=== PATIENT | female | born 1940 | race Caucasian/White ===

== ENCOUNTER 2020-08-02 10:35 | Outpatient (REF) | payer MEDICARE, SELFPAY ==
--- NOTE | 2020-08-02 11:07 | XR_ITS ---
EXAMINATION: XR CHEST CLINICAL INFORMATION: Hypertension, left pleural effusion. COMPARISON: Chest radiographs 02/25/2018, 11/09/2017, 10/22/2017, CT chest noncontrast 11/04/2017 TECHNIQUE: 2 views of the chest were obtained. FINDINGS: There is moderate left pleural effusion with fluid tracking also in the oblique fissure. Similar findings noted in 2018. There is no mediastinal shift. The right lung is clear. The vascularity is normal. There is no airspace consolidation or groundglass opacity. The heart is within normal size. The hilar and mediastinal contours and bony structures are stable. XR/XR chest 2V IMPRESSION: 1. Moderate left effusion with fluid also tracking and left oblique fissure. Similar findings in 2018. 2. Lungs otherwise clear. Vascularity normal.
[2020-08-02 11:43] LABS: MANUAL DIFF FLAG NO
[2020-08-02 11:59] LABS: Basophils Absolute Auto 0.1 X10*3/uL (0.0-0.2); Basophils Percent Auto 0.6 % (0-2); Eosinophils Absolute Auto 0.1 X10*3/uL (0.0-0.4); Eosinophils Percent Auto 0.5 % (0-4); Hemoglobin 10.8 g/dl (12.0-16.0); Imm Gran Abs Auto 0.04 X10*3/uL (0.00-0.03); Imm Gran Pct Auto 0.4 % (0.0-0.4); Mean Corpuscular Hemoglobin 22.7 pg (27.0-33.0); Mean Corpuscular Volume 75.6 fL (80-98); Mean Platelet Volume 10.9 fL (9.4-12.3); Monocytes Absolute Auto 0.5 X10*3/uL (0.1-1.2); Monocytes Percent Auto 4.8 % (2-11); Neutrophils Absolute Auto 8.3 X10*3/uL (2.0-8.3); Neutrophils Percent Auto 75.7 % (45-73); Platelet Count 291 X10*3/uL (160-400); Red Blood Count 4.76 X10*6/uL (4.20-5.50); Red Cell Distribution Width 21.4 % (11.0-16.0)
[2020-08-02 12:21] LABS: Alanine Aminotransferase 19 U/L (0-31); Albumin Level 3.5 g/dL (3.5-5.0); Alkaline Phosphatase 127 U/L (39-117); Anion Gap 14 (12-20); Aspartate Amino Transferase 26 U/L (5-31); Bilirubin Total 0.6 mg/dL (0.0-1.0); Blood Urea Nitrogen 13 mg/dL (9-16); Calcium 8.7 mg/dL (8.4-10.2); Carbon Dioxide 26 mmol/L (22-29); Chloride 104 mmol/L (96-108); Estimated Glomerular Filt Rate > 60; Glucose Random 71 mg/dL (60-115); Potassium 4.1 mmol/l (3.3-5.1); Sodium 140 mmol/L (135-145); Total Protein 6.1 g/dL (6.5-8.0)
[2020-08-02 12:44] LABS: Thyroid Stimulating Hormone 1.76 uIU/mL (0.32-4.0)
== END 2020-08-02 10:36 | disposition home or self-care (01) ==
LOC: HO.LAB 10:35
PROVIDERS: PCP Internal Medicine; Visit Provider Internal Medicine
DX: R60.9 Edema, unspecified (principal); I10 Essential (primary) hypertension; M06.9 Rheumatoid arthritis, unspecified
CPT/HCPCS: 36415; 71046; 80053; 84443; 85025

== ENCOUNTER 2020-11-13 08:56 | Emergency (ER) | payer MEDICARE, SELFPAY ==
--- NOTE | ~2020-11-13 | XR_ITS ---
EXAMINATION: XR HIP, RIGHT CLINICAL INFORMATION: Fall, right hip injury. COMPARISON: None TECHNIQUE: Two views of the right hip. FINDINGS: AP pelvis reveals normal symmetry of both hip joints. SI joints are symmetrical as well. There is no pelvic bone fracture. AP and frog-leg views right hip reveals no visible acute fracture, dislocation or subluxation. No bony erosive changes seen. The soft tissues are normal. The right SI joint is normal. XR/XR hip RT w PEL1V IMPRESSION: Unremarkable right hip exam.
[2020-11-13 09:03] VITALS: BP 150/66; BP 174/82; PULSE 105; PULSE 110; RESP 18; TEMP 36.9; O2SAT 98; O2SAT 99; BMI 23.3
--- NOTE | 2020-11-13 09:03 | ED.LOWEXIN ---
HPI - Extremity Injury (Lower) General Chief Complaint: Fall Stated Complaint: MECHANICAL FALL,NO C/O INJURY OR PAIN Time Seen by Provider: 11/13/20 09:02 Source: patient Mode of arrival: EMS Limitations: no limitations History of Present Illness HPI Narrative: patient was rushing to the telephone, tripped and fell. Patient could not get up as her legs were weak, she was not using her walker complaint: hip injury Onset (ago): minute(s) Type of Injury: unknown Place: home Severity: moderate Exacerbating factors: movement Context: fall Related Data Previous Rx's Medication Instructions Recorded cephalexin 500 mg PO QID #20 cap 11/13/20 Allergies Allergy/AdvReac Type Severity Reaction Status Date / Time crab AdvReac Intermediate NAUSEA & Unverified 05/17/20 16:12 VOMITING crab Allergy Unknown vomiting Uncoded 01/07/18 00:00 Review of Systems Constitutional: Constitutional: Reports no additional constitutional complaints Eyes: Eyes: Reports no additional eye complaints ENT: Denies dizziness Cardiovascular: Cardiovascular: Reports no additional cardiovascular complaints Respiratory: Respiratory: Reports as per HPI Gastrointestinal: Gastrointestinal: Reports no additional gastrointestinal complaints Genitourinary: Genitourinary: Reports no additional female genitourinary complaints Musculoskeletal: Musculoskeletal: Reports no additional musculoskeletal complaints Integumentary/Breasts: Skin/Breast: Denies rash Neurologic: Reports system reviewed and no additional complaints, except as documented, Denies dizziness and Denies Sensory deficit (Neuro) Psychiatric: Psychiatric: Denies anxiety [facility] Social History Social History Advance Directives: Yes Advance Directives Information Provided: Yes Advance Directives on File: No Physical Exam Vital Signs: Vital Signs: Last Vital Signs Temp 98.2 F 11/13/20 10:00 Pulse 102 H 11/13/20 10:00 Resp 18 11/13/20 10:00 BP 150/66 H 11/13/20 09:03 Pulse Ox 98 11/13/20 10:00 Body Mass Index 23.3 Const: Other: elderly female in no distress General: healthy appearing Nutritional Appearance: average body habitus Orientation/consciousness: oriented to person and patient oriented x3 Limitations: no limitations HENMT: Head: Yes normal to inspection Ears: external ears normal General nose exam: Normal external nose present Mouth: Normal oral and palatal mucosa present and oropharynx normal Throat: Yes posterior oropharynx normal Eyes: General: appearance normal, both eyes and all related structures Neck: Other: supple Neck: Yes normal visual inspection Chest: Chest palpation & inspection: normal inspection of the chest Resp: Auscultation: clear to auscultation bilaterally Cardio: Jugular venous distension: no JVD Rate: regular rate Rhythm: regular rhythm Heart sounds: S1 normal heart sound present and S2 normal heart sound present GI: Inspection: Yes normal to inspection Palpation (GI): Soft to palpation, nontender and No hepatosplenomegaly present Auscultation: normal bowel sounds : General: Yes no CVA tenderness Back/Spine/Pelvis: Back: no CVA tenderness Skin: General skin exam: no rashes or lesions noted Neuro: General: oriented to person and patient oriented x3 Cranial nerves: Yes CN's II-XII intact bilaterally Motor exam (neuro): 5/5 motor strength present throughout Sensory Exam: No Sensory deficit (Neuro) Extrem: General: Yes normal to inspection Psych: Appearance: grossly normal MDM - Extremity Injury (Lower) MDM Narrative Medical decision making narrative: Patient ambulated well, no evidence of hip fracture will start Keflex for UTI Lab Data Labs: Lab Results 11/13/20 Range/Units Unknown Urine Color JOSHUA Urine Appearance CLOUDY Urine pH 5.5 (5.0-8.0) Ur Specific Hibbs >= 1.030 H (1.005-1.025) Urine Protein 2+ H (NEG-TRACE) MG/DL Urine Glucose (UA) NEG (NEG) MG/DL Urine Ketones 5 (NEG) MG/DL Urine Blood 3+ H (NEG) Urine Nitrite POS H (NEG) Ur Leukocyte Esterase 2+ H (NEG) Urine RBC 15-29 H (0) /HPF Urine WBC TNTC H (0-4) /HPF Ur Squamous Epith Cells 2+ /LPF Urine Bacteria 2+ /LPF Urine Yeast 2+ /HPF Imaging Data hip and pelvis: Radiologist's impression: no fracture Discharge Plan Discharge Clinical Impression: Urinary tract infection Qualifiers: Urinary tract infection type: acute cystitis Hematuria presence: without hematuria Qualified Code(s): N30.00 - Acute cystitis without hematuria Patient Disposition: Home, Self-Care Instructions: Urinary Tract Infection in Older Adults (ED) Prescriptions: New cephalexin 500 mg capsule 500 mg PO QID Qty: 20 RF: 0 Referrals: Florencio Aguilar MD [Primary Care Provider] - 2 days
[2020-11-13 10:00] VITALS: PULSE 102; RESP 18; TEMP 36.8; O2SAT 98
[2020-11-13 11:00] LABS: Glucose Urine UA NEG (NEG); Leukocyte Esterase Urine 2+ (NEG); Nitrite Urine POS (NEG); PH 5.5 (5.0-8.0); Specific Gravity - Urine >= 1.030 (1.005-1.025); UACC Culture Trigger YES; Urine Blood 3+ (NEG); Urine Ketones 5 MG/DL (NEG); Urine Protein 2+ MG/DL (NEG-TRACE)
[2020-11-13 11:01] LABS: Appearance Urine CLOUDY; Color Urine AMBER
[2020-11-13 11:13] LABS: Bacteria Urine 2+ /LPF; Squamous Epithelial Cell Urine 2+ /LPF; WBC Urine TNTC /HPF (0-4)
--- NOTE | 2020-11-13 11:31 | PC.NURSE ---
Pt amb well with walker, no assist needed
[2020-11-13] MEDS: cephALEXin 500 MG CAPSULE PO (12:07)
== END 2020-11-13 12:56 | disposition home or self-care (01) ==
PROVIDERS: Emergency Provider Emergency Medicine; PCP Internal Medicine
DX: N30.00 Acute cystitis without hematuria (principal); M25.551 Pain in right hip
CPT/HCPCS: 73502; 81001; 81003; 87086; 87088; 87186; 99283; 99284

== ENCOUNTER 2020-11-16 20:56 | Inpatient (IN) | payer MEDICARE, SELFPAY ==
--- NOTE | ~2020-11-16 | US_ITS ---
EXAMINATION: US ABDOMEN LIMITED CLINICAL INFORMATION: Elevated LFTs and fever. COMPARISON: None TECHNIQUE: Real-time imaging of the right upper quadrant abdominal viscera. Examination limited secondary to overlying bowel gas. FINDINGS: PANCREAS: The pancreas is partially obscured by overlying bowel gas. Visualized portions of the pancreas are unremarkable. LIVER: The liver is normal in size. The liver contour is normal. Parenchymal echogenicity is normal. No focal hepatic lesion. Minimal intrahepatic biliary ductal dilatation, nonspecific. GALLBLADDER: The gallbladder is poorly visualized, felt to be due to shadowing from numerous gallstones. COMMON BILE DUCT: Normal in caliber measuring 0.6 cm in diameter. RIGHT KIDNEY: Normal. No hydronephrosis. No renal calculi or focal parenchymal lesions. The kidney measures 11 cm in maximum dimension. FREE FLUID: None. US/US abdomen limited IMPRESSION: Suspected cholelithiasis. Minimal intrahepatic biliary ductal dilatation is also noted. Further evaluation can be obtained with MRI/MRCP if clinically indicated.
--- NOTE | ~2020-11-16 | XR_ITS ---
EXAMINATION: XR CHEST CLINICAL INFORMATION: Hypoxia COMPARISON: Previous chest x-ray most recent 11/26/2020 TECHNIQUE: Frontal view of the chest was obtained. FINDINGS: There is an endotracheal tube with tip 3.4 cm above the karsten. There is a nasogastric tube. The side port projects over the GE junction and the visualized distal tube projects over the proximal stomach. The tip is not seen. There is a left jugular line with tip projecting over the proximal SVC. The cardiac and mediastinal contours are stable. There is dense bilateral airspace disease. This is not appear appreciably changed from 11/26/2020. There is a stable small to moderate left pleural effusion. There is no right pleural effusion. There is no pneumothorax. There is vertebroplasty change of the proximal lumbar spine. XR/XR chest 1V IMPRESSION: No change in dense bilateral airspace disease and left pleural effusion. Nasogastric tube projects over stomach, tip not seen.
--- NOTE | ~2020-11-16 | XR_ITS ---
EXAMINATION: XR CHEST CLINICAL INFORMATION: Central line placement COMPARISON: Previous chest x-rays most recent from yesterday TECHNIQUE: Frontal view of the chest was obtained. FINDINGS: There is an endotracheal tube with tip 6 cm above the karsten. There is a new left jugular line with tip projecting over the proximal SVC. The cardiac and mediastinal contours are stable. There is dense bilateral airspace disease. This appears increased from yesterday's exam. There is a small left pleural effusion. There is no significant right pleural effusion. There is no pneumothorax. XR/XR chest 1V IMPRESSION: Satisfactory position of support line and tubes. Dense bilateral airspace disease increased from yesterday's exam. Small stable left pleural effusion. No pneumothorax.
--- NOTE | ~2020-11-16 | XR_ITS ---
EXAMINATION: XR CHEST CLINICAL INFORMATION: Check orogastric tube placement COMPARISON: Previous chest x-ray and chest CTA from earlier today TECHNIQUE: Frontal view of the chest was obtained. FINDINGS: Endotracheal tube tip is 2.5 cm above the karsten. There is a new orogastric tube. The distal tube projects over the stomach. The tip is not seen. The sidehole is at the level of the GE junction. There is a left jugular line with tip projecting over the SVC. The cardiac and mediastinal contours are stable. There is bilateral airspace disease that appears unchanged. There is a left pleural effusion that is unchanged. There is no right pleural effusion. There is no pneumothorax. Old compression fracture and vertebroplasty change of the L1 vertebral body is noted. XR/XR chest 1V IMPRESSION: New orogastric tube projects over stomach. The tip is not seen. Sidehole projects over the GE junction region. Satisfactory position of endotracheal tube and left jugular line. No change in bilateral airspace disease and left pleural effusion.
--- NOTE | ~2020-11-16 | XR_ITS ---
EXAMINATION: XR CHEST CLINICAL INFORMATION: Hypoxia COMPARISON: Previous chest x-ray July [address] most recent October 2017 TECHNIQUE: Frontal view of the chest was obtained. FINDINGS: There is a large left pleural effusion that appears unchanged. There may be compressive atelectasis of the left lower lobe. This is unchanged as well. There is diffuse airspace disease and question bronchial wall thickening seen in the right central lung. This is greatest in the right upper lobe. This probably represents pneumonia. There is no right pleural effusion. The left heart border partially obscured. The heart does not appear enlarged. Visualized hilar and mediastinal contours are unremarkable. There are degenerative changes of the spine. XR/XR chest 1V IMPRESSION: Large left pleural effusion and probable compressive atelectasis at the left lung base similar to previous exams. New central airspace disease in the right lung, greatest in the right upper lobe, and bronchial wall thickening. This probably represents pneumonia.
--- NOTE | ~2020-11-16 | XR_ITS ---
EXAMINATION: XR CHEST CLINICAL INFORMATION: Shortness of breath COMPARISON: Previous chest x-rays most recent from yesterday TECHNIQUE: Frontal view of the chest was obtained. FINDINGS: The cardiac and mediastinal contours are stable. There is increasing right-sided airspace disease. There is increasing left perihilar airspace disease as well. This probably represents pneumonia. Differential would include pulmonary edema and in the right clinical setting pulmonary hemorrhage. There is blunting at the left lateral costophrenic angle triangular lucency at the left lung base seen medially suggestive of a loculated left pleural effusion. This appears unchanged. There is no right pleural effusion. There is a postoperative kyphoplasty change to the upper lumbar spine. XR/XR chest 1V IMPRESSION: Worsening bilateral airspace disease probably representing pneumonia. Differential in the right clinical setting would include pulmonary edema and pneumonia. Stable probably loculated left pleural effusion.
--- NOTE | ~2020-11-16 | CT_ITS ---
EXAMINATION: CT HEAD WITHOUT CONTRAST CLINICAL INFORMATION: Fall. On Coumadin. COMPARISON: CT head 12/24/2017 TECHNIQUE: Contiguous axial imaging was performed from the skull base to vertex without intravenous administration of contrast. Coronal and sagittal reformatted images are performed at the CT scanner This CT examination was performed using dose optimization techniques as appropriate, variously including the following: *Automated exposure control *Adjustment of mA and/or kV according to patient size (this includes techniques or standardized protocols for targeted exams where dose is matched to indication/reason for exam; i.e. extremities or head) *Use of iterative reconstruction technique DLP: 710 mGy-cm FINDINGS: There is no evidence of acute intracranial hemorrhage or territorial infarction. No abnormal mass effect or midline shift is seen. Crisostomo to white matter differentiation is well preserved. No extra-axial fluid collections are identified. There is atrophy with prominence of the ventricles and the sulci and hypodensity of the periventricular white matter due to chronic small vessel ischemic disease. There are vascular calcifications of the internal carotid arteries bilaterally. The osseous structures and soft tissues are normal. The mastoid air cells and visualized portions of the paranasal sinuses are well aerated. CT/CT head/brain wo con IMPRESSION: No acute intracranial pathology.
--- NOTE | ~2020-11-16 | CT_ITS ---
EXAMINATION: CT CHEST WITHOUT CONTRAST CLINICAL INFORMATION: Hypoxia. COMPARISON: Chest CT dated 10/14/2017. TECHNIQUE: Multidetector volumetric CT imaging of the chest was done. Axial MIP volume rendering provided. Sagittal and coronal reformatted images were obtained. This CT examination was performed using dose optimization techniques as appropriate, variously including the following: *Automated exposure control *Adjustment of mA and/or kV according to patient size (this includes techniques or standardized protocols for targeted exams where dose is matched to indication/reason for exam; i.e. extremities or head) *Use of iterative reconstruction technique DLP: 198 mGy-cm FINDINGS: Lungs and pleural spaces: Diffuse groundglass opacification are noted throughout the right upper lobe, right upper lobe, and right lower lobe. Diffuse groundglass opacities are noted throughout the left upper lobe. Large loculated left pleural effusion. There is near complete atelectasis of the left lower lobe with small aerated component in the inferior aspect of the left lower lobe respectively. There is no discrete pulmonary nodule or mass. The central tracheobronchial tree is patent. No pneumothorax. Thoracic lymph nodes: There is no hilar, mediastinal or axillary lymphadenopathy. Cardiovascular, mediastinal structures and thyroid: The heart is normal in size. Coronary vascular calcifications noted. There is no pericardial effusion. The thoracic aorta is normal in diameter without evidence of aneurysm. The main pulmonary artery is normal in caliber. The visualized thyroid gland is within normal limits. The esophagus appears partially collapsed but otherwise unremarkable. Skeletal, diaphragm and chest wall: T12 vertebral augmentation. Unchanged hypoplastic ribs at the T12 level. No aggressive lytic or blastic osseous lesions. The subcutaneous tissues are unremarkable. Upper abdomen: The visualized liver, pancreas, and spleen are unremarkable. Unchanged right adrenal gland nodule, likely an adenoma. Left adrenal gland thickening. Partially visualized kidneys are normal. The proximal stomach and visualized upper abdominal bowel loops are poorly evaluated but appear unremarkable. CT/CT chest wo con IMPRESSION: Large loculated left pleural effusion. There is marked compressive atelectasis of the left lower lobe. Diffuse groundglass opacities throughout the right and left lung secondary to multifocal pneumonia. Mild coronary atherosclerotic disease. Vertebral augmentation at T12. Unchanged right adrenal gland nodule, likely an adenoma. Left adrenal gland thickening. Findings of this examination were discussed with and acknowledged by Dr. Cooper at 6:56 PM 11/23/2020.
--- NOTE | ~2020-11-16 | XR_ITS ---
EXAMINATION: XR HIP, LEFT CLINICAL INFORMATION: Postop COMPARISON: Previous pelvis and left hip x-ray 11/16/2020 TECHNIQUE: AP view of the left hip FINDINGS: There is a new left hip hemiarthroplasty in satisfactory position. No fracture or dislocation is seen. There are mild degenerative changes at the right hip joint. There are postoperative changes to the soft tissues of the left hip. XR/XR hip LT 1V IMPRESSION: New left hip hemiarthroplasty in satisfactory position.
--- NOTE | ~2020-11-16 | XR_ITS ---
EXAMINATION: CHEST 1 VIEW CLINICAL INFORMATION: Shortness of breath. COMPARISON: 11/23/2020. TECHNIQUE: An AP view of the chest is provided. FINDINGS: The cardiac silhouette is stable. Again identified is a large left pleural effusion with associated atelectasis. There is patchy opacification throughout the right lung. There are no pneumothoraces. The osseous structures are stable. XR/XR chest 1V IMPRESSION: Large left pleural effusion with associated airspace disease. Patchy airspace opacification throughout the right lung.
--- NOTE | ~2020-11-16 | CT_ITS ---
EXAMINATION: CHEST CTA CLINICAL INFORMATION: Cardiac arrest COMPARISON: Previous chest CT 11/23/2020 and chest x-rays most recent from earlier the same day TECHNIQUE: Axial images through the chest following 65 mL Omnipaque 350 intravenous contrast. Sagittal coronal and 3-D MIPS reconstructions were performed. Patient dose 1 6 4 mg/cm. This CT examination was performed using dose optimization techniques as appropriate, variously including the following: *Automated exposure control *Adjustment of mA and/or kV according to patient size (this includes techniques or standardized protocols for targeted exams where dose is matched to indication/reason for exam; i.e. extremities or head) *Use of iterative reconstruction technique FINDINGS: There is good opacification of the pulmonary arteries. There is no evidence of pulmonary embolism. There is evidence of increasing bilateral groundglass attenuation and denser consolidation seen throughout the lungs. This is greatest in the right upper lobe.. There is chronic atelectasis of the left lower lobe probably representing compressive atelectasis from the left pleural effusion. No endobronchial or endotracheal lesion is seen. There is an endotracheal tube with tip 2.5 cm above the karsten. There is a moderate loculated left pleural effusion that appears unchanged. There is a trace right pleural effusion. There is no pneumothorax. There is a new left jugular line with tip projecting over the proximal SVC. There is an endotracheal tube with tip 2.5 cm above the karsten. The heart does not appear enlarged. The thoracic aorta is normal in caliber. There is evidence of calcified and noncalcified plaque seen in the thoracic aorta. There are no enlarged hilar or mediastinal lymph nodes. No chest wall mass or enlarged axillary lymph nodes are seen. Images through the upper abdomen are unremarkable. There are are degenerative changes of the spine. There is an old L1 vertebral body compression fracture and post vertebroplasty change. No acute rib or sternal fracture is seen. CT/CT angio chest PE protocol IMPRESSION: No evidence of pulmonary embolism. Increasing bilateral airspace disease, greatest in the right upper lobe. Stable loculated moderate size left pleural effusion. Trace right pleural effusion. Satisfactory position of support line and endotracheal tube. No pneumothorax. Atherosclerotic disease with calcified and noncalcified plaque in the thoracic aorta. EXAMINATION: Head CT without contrast CLINICAL INFORMATION: Cardiac arrest COMPARISON: Previous head CT October 2017 TECHNIQUE: Axial images through the head without contrast. Sagittal and coronal reconstructions on the technologist workstation were performed. Patient dose 8 3 2 mg/cm FINDINGS: There is no evidence of an extra-axial collection. There is no evidence of intra-axial or extra-axial hemorrhage. The ventricles and extra-axial CSF spaces are prominent suggestive of generalized atrophy. There is nonspecific periventricular white matter disease. No mass, mass effect or acute infarct is seen. Review of bone windows demonstrates no skull fracture or bone lesion. Visualized paranasal sinuses, mastoid air cells and middle ears are clear. IMPRESSION: No acute findings. Generalized atrophy and nonspecific periventricular white matter disease.
--- NOTE | ~2020-11-16 | XR_ITS ---
EXAMINATION: XR HIP, LEFT CLINICAL INFORMATION: s/p fall l hip pain COMPARISON: 11/13/2020 TECHNIQUE: AP and cross-table lateral views of the left hip and an AP view of the pelvis. FINDINGS: There is a transcervical fracture of the left proximal femur with cephalad displacement of the distal fragment by 2 cm as well as mild varus attenuation. This fracture appears new as compared to prior. No additional fractures are identified. Bones are osteopenic. There is mild osteophytes in the hips and SI joints. Calcific and sclerosis is evident within the central pelvis. XR/XR hip LT w PEL1V IMPRESSION: Displaced transcervical fracture of the left proximal femur.
[2020-11-16 21:07] VITALS: BP 150/78; BP 164/64; PULSE 82; PULSE 86; RESP 17; TEMP 36.3; O2SAT 93; O2SAT 94; BMI 23.3
--- NOTE | 2020-11-16 21:11 | PC.NURSE ---
patient alert to person/place, she was unable to give date/time/year- initially stated it was november, pt had c/o 8/10 lt hip pain, + csm/pulses to lle, per ems patient lives home alone and her home is very well kept/clean. pt states her son lives in [place] but visits often and has others who stop over often as well. pt is a poor historian for medical history, vitals currently stable, will continue to monitor.
--- NOTE | 2020-11-16 22:21 | ECG_ITS ---
Test Reason : FALL Blood Pressure : / mmHG Vent. Rate : 084 BPM Atrial Rate : 084 BPM P-R Int : 156 ms QRS Dur : 090 ms QT Int : 374 ms P-R-T Axes : 031 030 038 degrees QTc Int : 441 ms Normal sinus rhythm Possible Left atrial enlargement Nonspecific ST and T wave abnormality Abnormal ECG When compared with ECG of 24-DEC-2017 12:02, Nonspecific T wave abnormality no longer evident in Inferior leads Referred By: Adilson De Jesus Electronically Signed By:BRANDO PANTOJA MD
[2020-11-16] MEDS: Morphine Sulfate 2 MG/ML CARTRIDGE IVPUSH (22:38)
[2020-11-16] MEDS: ondansetron HCL 4 MG/2 ML VIAL IVPUSH (22:38)
[2020-11-16 22:39] LABS: MANUAL DIFF FLAG NO
[2020-11-16 22:42] LABS: Basophils Absolute Auto 0.1 X10*3/uL (0.0-0.2); Basophils Percent Auto 0.5 % (0-2); Eosinophils Percent Auto 0.2 % (0-4); Hematocrit 32.9 % (37-47); Hemoglobin 10.3 g/dl (12.0-16.0); Imm Gran Pct Auto 1.5 % (0.0-0.4); Lymphocytes Absolute Auto 1.9 X10*3/uL (1.2-4.9); Lymphocytes Percent Auto 14.6 % (20-40); Mean Corpuscular HGB Conc 31.3 g/dl (31.0-35.0); Mean Corpuscular Hemoglobin 22.1 pg (27.0-33.0); Mean Corpuscular Volume 70.4 fL (80-98); Mean Platelet Volume 10.1 fL (9.4-12.3); Monocytes Absolute Auto 1.2 X10*3/uL (0.1-1.2); Monocytes Percent Auto 9.5 % (2-11); Neutrophils Absolute Auto 9.7 X10*3/uL (2.0-8.3); Neutrophils Percent Auto 73.7 % (45-73); Platelet Count 368 X10*3/uL (160-400); Red Blood Count 4.67 X10*6/uL (4.20-5.50); Red Cell Distribution Width 21.9 % (11.0-16.0); White Blood Count 13.1 X10*3/uL (4.8-10.8)
--- NOTE | 2020-11-16 22:43 | PC.NURSE ---
iv inserted, labs drawn, ekg performed, pt medicated per order, will continue to monitor.
[2020-11-16 22:48] LABS: INTERNATIONAL NORM RATIO 1.9 (0.9-1.1); Prothrombin Time 22.9 SEC (10.8-13.0)
[2020-11-16 22:51] LABS: Partial Thromboplastin Time 33.7 SEC (24.1-38.0)
[2020-11-16 23:13] LABS: Alanine Aminotransferase 17 U/L (0-31); Albumin Level 3.3 g/dL (3.5-5.0); Alkaline Phosphatase 169 U/L (39-117); Anion Gap 17 (12-20); Aspartate Amino Transferase 32 U/L (5-31); Bilirubin Direct 0.2 mg/dL (0.0-0.5); Bilirubin Total 0.5 mg/dL (0.0-1.0); Blood Urea Nitrogen 10 mg/dL (9-16); Calcium 8.3 mg/dL (8.4-10.2); Carbon Dioxide 19 mmol/L (22-29); Chloride 105 mmol/L (96-108); Creatinine Clr Calc Pharmacy 49.8; Estimated Glomerular Filt Rate > 60; Glucose Random 100 mg/dL (60-115); Potassium 3.4 mmol/L (3.3-5.1); Sodium 138 mmol/L (135-145); Total Protein 6.2 g/dL (6.5-8.0)
[2020-11-16 23:14] LABS: Troponin-I High Sensitivity 9.7 ng/L (<3.5-17.0)
[2020-11-16 23:23] LABS: COVID-19 Test Negative (Negative)
--- NOTE | 2020-11-16 23:36 | ED.FALL ---
HPI - Fall General Chief Complaint: Fall Stated Complaint: Fall Time Seen by Provider: 11/16/20 22:20 Source: patient Mode of arrival: ambulatory Limitations: no limitations History of Present Illness HPI Narrative: Patient with frequent falls supposed to walk with walker patient was walking without walker with Min room to room lost balance and fell landing on her left hip patient denied any head injury comes with pain in the left hip MD complaint: fall Fall from: standing Fall witnessed: no Place fall occurred: home Loss of consciousness: none Related Data Home Medications Medication Instructions Recorded Confirmed apixaban [Eliquis] 1 tab PO BID 11/16/20 11/16/20 folic acid 1 tab PO DAILY 11/16/20 11/16/20 furosemide 1 tab PO DAILY 11/16/20 11/16/20 hydroxychloroquine 1 tab PO BID 11/16/20 11/16/20 ibrutinib [Imbruvica] 1 tab PO DAILY 11/16/20 11/16/20 methotrexate sodium 8 tab PO QWEEK 11/16/20 11/16/20 metoprolol tartrate 0.5 tab PO BID 11/16/20 11/16/20 pantoprazole 1 tab PO DAILY 11/16/20 11/16/20 salsalate 2 tab PO BID 11/16/20 11/16/20 Previous Rx's Medication Instructions Recorded cephalexin 500 mg PO QID #20 cap 11/13/20 Allergies Allergy/AdvReac Type Severity Reaction Status Date / Time crab AdvReac Intermediate NAUSEA & Verified 11/16/20 21:07 VOMITING crab Allergy Intermediate vomiting Uncoded 11/16/20 21:07 Review of Systems Review of Systems: Constitutional : No Weight loss, No Fever, No Chills ENT/Mouth : No sore throat, No Rhinorrhea Eyes: No Eye Pain, No Swelling Cardiovascular : No Chest Pain, no palpitations Respiratory : No Cough, No Sputum, no shortness of breath Gastrointestinal : no Nausea, No Vomiting, No Diarrhea, No abdominal Pain, no black stools Genitourinary : No Dysuria, No Urinary Frequency Musculoskeletal : No Myalgias, No Joint Swelling Skin : No Skin Lesions, No rash Neuro : No Weakness, No Numbness, No Dizziness, No Headache Psych : No Anxiety/Panic, No Depression Heme/Lymph: No Bruising, No Lymphadenopathy Endocrine : No Polyuria, No Polydipsia All other systems reviewed and are negative PMFSH Past Medical History Medical History CLL (chronic lymphocytic leukemia) Empyema lung Paroxysmal A-fib Rheumatoid arthritis Social History Social History Alcohol intake: never Smoked in Last 30 Days: No Use of substances other than those prescribed or required for medical reasons: No Advance Directives: No Advance Directives Information Provided: Yes Physical Exam Vital Signs: Vital Signs: Last Vital Signs Temp 97.4 F 11/16/20 21:07 Pulse 86 11/16/20 21:07 Resp 17 11/16/20 21:07 BP 164/64 H 11/16/20 21:07 Pulse Ox 93 11/16/20 21:07 Body Mass Index 23.3 Const: General: alert, awake and in distress Nutritional Appearance: thin Orientation/consciousness: patient oriented x3 HENMT: Head: Yes normocephalic and Yes atraumatic Ears: hearing grossly normal bilaterally Face and sinus: Yes normal facial exam Mouth: Normal oral and palatal mucosa present Eyes: General: appearance normal, both eyes and all related structures Neck: Neck: Yes normal visual inspection and No tender Chest: Chest palpation & inspection: normal inspection of the chest and normal palpation of entire chest wall Resp: Effort & Inspection: normal respiratory effort Auscultation: clear to auscultation bilaterally, no crackles and no rales Cardio: Palpation: normal PMI Rate: regular rate Rhythm: regular rhythm Heart sounds: S1 normal heart sound present and S2 normal heart sound present Peripheral pulses: Peripheral pulses 2+ throughout GI: Inspection: Yes normal to inspection Palpation (GI): Soft to palpation and nontender Auscultation: normal bowel sounds : General: Yes no CVA tenderness Back/Spine/Pelvis: Back: no CVA tenderness Thoracic/Lumbar Spine: thoracic and lumbar spine normal to inspection Skin: General skin exam: no rashes or lesions noted Neuro: General: patient oriented x3 and no focal motor deficits Extrem: Left lower extremity: no edema Upper/lower leg/hip images: 1. Tender left hip externally rotated shortened MDM - Fall MDM Narrative Medical decision making narrative: Patient with displaced scervical fracture of left femur secondary to mechanical fall on Eliquis case discussed with Dr. Cevallos advise admit to medical service to get medically cleared because patient is on Eliquis will take to surgical service once cleared Differential Diagnosis Differential diagnosis: Likely fracture Lab Data Attestation: I reviewed the patient's lab results. Result diagrams: 11/16/20 22:32 11/16/20 22:32 Labs: Lab Results 11/16/20 11/16/20 11/16/20 Range/Units 22:31 22:32 22:32 WBC 13.1 H (4.8-10.8) X10*3/uL RBC 4.67 (4.20-5.50) X10*6/uL Hgb 10.3 L (12.0-16.0) g/dl Hct 32.9 L (37-47) % MCV 70.4 L (80-98) fL MCH 22.1 L (27.0-33.0) pg MCHC 31.3 (31.0-35.0) g/dl RDW 21.9 H (11.0-16.0) % Plt Count 368 D (160-400) X10*3/uL MPV 10.1 (9.4-12.3) fL Immature Gran % (Auto) 1.5 H (0.0-0.4) % Neut % (Auto) 73.7 H (45-73) % Lymph % (Auto) 14.6 L (20-40) % [place] % (Auto) 9.5 (2-11) % Eos % (Auto) 0.2 (0-4) % Baso % (Auto) 0.5 (0-2) % Lymph # (Auto) 1.9 (1.2-4.9) X10*3/uL [place] # (Auto) 1.2 (0.1-1.2) X10*3/uL Eos # (Auto) 0.0 (0.0-0.4) X10*3/uL Baso # (Auto) 0.1 (0.0-0.2) X10*3/uL Abs Immat Gran (auto) 0.20 H (0.00-0.03) X10*3/uL Absolute Neuts (auto) 9.7 H (2.0-8.3) X10*3/uL Absolute Nucleated RBC 0.000 (0.0-0.012) X10*3/uL Nucleated RBC % (auto) 0.0 (0.0-0.2) /100WBC PT 22.9 H (10.8-13.0) SEC INR 1.9 H (0.9-1.1) APTT 33.7 (24.1-38.0) SEC Sodium (135-145) mmol/L Potassium (3.3-5.1) mmol/L Chloride (96-108) mmol/L Carbon Dioxide (22-29) mmol/L Anion Gap (12-20) BUN (9-16) mg/dL Creatinine (0.5-1.4) mg/dL Estim Creat Clear Calc Estimated GFR Random Glucose (60-115) mg/dL Calcium (8.4-10.2) mg/dL Total Bilirubin (0.0-1.0) mg/dL Direct Bilirubin (0.0-0.5) mg/dL AST (5-31) U/L ALT (0-31) U/L Alkaline Phosphatase (39-117) U/L Troponin I High Sens (<3.5-17.0) ng/L Total Protein (6.5-8.0) g/dL Albumin (3.5-5.0) g/dL COVID-19 (KAREN) (Negative) COVID-19 Clin [facility] Blood Type O Positive Antibody Screen NEGATIVE 11/16/20 11/16/20 11/16/20 Range/Units 22:32 22:32 22:34 WBC (4.8-10.8) X10*3/uL RBC (4.20-5.50) X10*6/uL Hgb (12.0-16.0) g/dl Hct (37-47) % MCV (80-98) fL MCH (27.0-33.0) pg MCHC (31.0-35.0) g/dl RDW (11.0-16.0) % Plt Count (160-400) X10*3/uL MPV (9.4-12.3) fL Immature Gran % (Auto) (0.0-0.4) % Neut % (Auto) (45-73) % Lymph % (Auto) (20-40) % [place] % (Auto) (2-11) % Eos % (Auto) (0-4) % Baso % (Auto) (0-2) % Lymph # (Auto) (1.2-4.9) X10*3/uL [place] # (Auto) (0.1-1.2) X10*3/uL Eos # (Auto) (0.0-0.4) X10*3/uL Baso # (Auto) (0.0-0.2) X10*3/uL Abs Immat Gran (auto) (0.00-0.03) X10*3/uL Absolute Neuts (auto) (2.0-8.3) X10*3/uL Absolute Nucleated RBC (0.0-0.012) X10*3/uL Nucleated RBC % (auto) (0.0-0.2) /100WBC PT (10.8-13.0) SEC INR (0.9-1.1) APTT (24.1-38.0) SEC Sodium 138 (135-145) mmol/L Potassium 3.4 (3.3-5.1) mmol/L Chloride 105 (96-108) mmol/L Carbon Dioxide 19 L (22-29) mmol/L Anion Gap 17 (12-20) BUN 10 (9-16) mg/dL Creatinine 0.70 (0.5-1.4) mg/dL Estim Creat Clear Calc 49.8 Estimated GFR > 60 Random Glucose 100 D (60-115) mg/dL Calcium 8.3 L (8.4-10.2) mg/dL Total Bilirubin 0.5 (0.0-1.0) mg/dL Direct Bilirubin 0.2 (0.0-0.5) mg/dL AST 32 H (5-31) U/L ALT 17 (0-31) U/L Alkaline Phosphatase 169 H D (39-117) U/L Troponin I High Sens 9.7 (<3.5-17.0) ng/L Total Protein 6.2 L (6.5-8.0) g/dL Albumin 3.3 L (3.5-5.0) g/dL COVID-19 (KAREN) Negative (Negative) COVID-19 Clin Com See Note Blood Type Antibody Screen ECG Data Attestation: I personally reviewed and interpreted this ECG as follows: Interpretation: Normal sinus rhythm heart rate 84 beats per minute normal intervals normal axis no acute ST T wave changes no acute ischemia Discharge Plan Discharge Prescriptions: No Action cephalexin 500 mg capsule 500 mg PO QID Qty: 20 RF: 0 salsalate 500 mg tablet 2 tab PO BID RF: 0 methotrexate sodium 2.5 mg tablet 8 tab PO QWEEK RF: 0 pantoprazole 40 mg tablet,delayed release (DR/EC) 1 tab PO DAILY RF: 0 metoprolol tartrate 50 mg tablet 0.5 tab PO BID RF: 0 folic acid 1 mg tablet 1 tab PO DAILY RF: 0 furosemide 20 mg tablet 1 tab PO DAILY RF: 0 hydroxychloroquine 200 mg tablet 1 tab PO BID RF: 0 Eliquis 5 mg tablet 1 tab PO BID RF: 0 Imbruvica 420 mg tablet 1 tab PO DAILY RF: 0
[2020-11-17] VITALS (8 sets, daily range): BP systolic 102–142; BP diastolic 44–65; PULSE 66–88; RESP 16–19; TEMP 36.4–36.7; O2SAT 95–99
[2020-11-17 00:04] LABS: Glucose Urine UA NEG (NEG); Leukocyte Esterase Urine NEG (NEG); Nitrite Urine NEG (NEG); Specific Gravity - Urine >= 1.030 (1.005-1.025); Urine Blood 3+ (NEG); Urine Ketones NEG (NEG); Urine Protein 1+ MG/DL (NEG-TRACE)
[2020-11-17 00:05] LABS: Appearance Urine HAZY; Color Urine YELLOW
[2020-11-17 00:11] LABS: Amorphous Sediment Urine 2+ /LPF; Hyaline Casts Urine 0-2 /LPF; RBC Urine 50-75 /HPF (0); Squamous Epithelial Cell Urine TRACE /LPF; WBC Urine 0-2 /HPF (0-4)
[2020-11-17] MEDS: Morphine Sulfate 2 MG/ML CARTRIDGE IVPUSH (00:31)
--- NOTE | 2020-11-17 00:45 | P.HPHOSP_ITS ---
History of Present Illness Date of Service: 11/17/20 Chief Complaint: Fall 79-year-old female with a past medical history of CLL, COPD, paroxysmal AFib on Eliquis, rheumatoid arthritis presented to the hospital with a chief complaint of fall. Patient reports that she was in the hospital about 3 days ago and was diagnosed with UTI and was discharged home on cephalexin. Mentions that she uses walker at home today she was walking and suddenly he slipped and fell on a. Denies any head strike or loss of consciousness. Denies any fever chills cough. Denies any chest pain lightheadedness or dizziness. Review of all other systems is negative except mentioned above ER course: For ER team patient CT head showed no acute findings exam nonfocal but noted of pain in the hip; hip x-ray showed transcervical fracture of the left proximal femur with cephalad displacement of the distal fragment by 2 centimetres as well as mild varus attenuation; ER team discussed with Dr. Cevallos who mentioned admitted to the medicine team. [facility] Medical History (Updated 11/26/20 @ 11:03 by Ruy Cruz MD) CLL (chronic lymphocytic leukemia) Empyema lung Paroxysmal A-fib Rheumatoid arthritis Social History Household Members: None Housing: House Alcohol intake: never Smoking Status: Never smoker service: No Current occupational status: retired Meds Allergies Allergy/AdvReac Type Severity Reaction Status Date / Time crab AdvReac Intermediate NAUSEA & Verified 11/16/20 21:07 VOMITING crab Allergy Intermediate vomiting Uncoded 11/16/20 21:07 Active Medications: Current Medications Generic Name Dose Route Start Last Admin Trade Name Freq PRN Reason Stop Dose Admin Acetaminophen 650 mg 11/17/20 00:42 Acetaminophen 325 Mg Tablet PO Q6H PRN Pain, Mild (Pain Scale 1-3) Cephalexin HCl 500 mg 11/17/20 09:00 Cephalexin 500 Mg Capsule PO QID [facility] Folic Acid 1 mg 11/17/20 09:00 Folic Acid 1 Mg Tablet PO DAILY [facility] Furosemide 20 mg 11/17/20 09:00 Furosemide 20 Mg Tablet PO DAILY [facility] Protocol Hydroxychloroquine Sulfate 200 mg 11/17/20 09:00 Hydroxychloroquine Sulfate 200 Mg Tablet PO BID [facility] Methotrexate 20 mg 11/17/20 00:45 Methotrexate Sodium 2.5 Mg Tablet PO QWEEK [facility] Metoprolol Tartrate 25 mg 11/17/20 09:00 Metoprolol Tartrate 50 Mg Tablet PO BID [facility] Protocol Non-Formulary Medication 1 tab 11/17/20 09:00 Ibrutinib [Imbruvica] PO DAILY [facility] Non-Formulary Medication 1 tab 11/17/20 09:00 Pantoprazole PO DAILY [facility] Non-Formulary Medication 2 tab 11/17/20 09:00 Salsalate PO BID [facility] Sodium Chloride 3 ml 11/17/20 08:00 0.9 % Sodium Chloride Flush 3 Ml Syringe IVFLUSH QSHIFT [facility] Home Medications Medication Instructions Recorded Confirmed Last Taken Type apixaban [Eliquis] 1 tab PO BID 11/16/20 11/16/20 Unknown History folic acid 1 tab PO DAILY 11/16/20 11/16/20 Unknown History furosemide 1 tab PO DAILY 11/16/20 11/16/20 Unknown History hydroxychloroquine 1 tab PO BID 11/16/20 11/16/20 Unknown History ibrutinib [Imbruvica] 1 tab PO DAILY 11/16/20 11/16/20 Unknown History methotrexate sodium 8 tab PO QWEEK 11/16/20 11/16/20 Unknown History metoprolol tartrate 0.5 tab PO BID 11/16/20 11/16/20 Unknown History pantoprazole 1 tab PO DAILY 11/16/20 11/16/20 Unknown History salsalate 2 tab PO BID 11/16/20 11/16/20 Unknown History Physical Exam Vital Signs and Narrative: Vital Signs: Last Vital Signs Temp 97.4 F 11/16/20 21:07 Pulse 87 11/17/20 00:00 Resp 16 11/17/20 00:00 BP 142/65 H 11/17/20 00:00 Pulse Ox 96 11/17/20 00:00 Body Mass Index 23.3 Gen: Appears be in no acute distress HEENT: NCAT, Moist mucosa. Pulmonary: Vesicular breath sounds, fair air entry CVS: Normal S1-S2 Abdomen: BS+, Soft, Nontender Extremities: Warm well perfused; left hip exam limited secondary to the pain Neuro: Alert and awake. Sensations intact Results Labs CBC and Chem 7: 11/26/20 06:57 11/26/20 06:57 Labs: Laboratory Results - last 24 hr 11/16/20 11/16/20 11/16/20 22:31 22:32 22:32 MCV 70.4 L MCH 22.1 L MCHC 31.3 RDW 21.9 H Plt Count 368 D MPV 10.1 Immature Gran % (Auto) 1.5 H Neut % (Auto) 73.7 H Lymph % (Auto) 14.6 L Garza % (Auto) 9.5 Eos % (Auto) 0.2 Baso % (Auto) 0.5 Lymph # (Auto) 1.9 Garza # (Auto) 1.2 Eos # (Auto) 0.0 Baso # (Auto) 0.1 Abs Immat Gran (auto) 0.20 H Absolute Neuts (auto) 9.7 H Absolute Nucleated RBC 0.000 Nucleated RBC % (auto) 0.0 PT 22.9 H INR 1.9 H APTT 33.7 Anion Gap Estim Creat Clear Calc Estimated GFR Random Glucose Calcium Total Bilirubin Direct Bilirubin AST ALT Alkaline Phosphatase Troponin I High Sens Total Protein Albumin Urine Color Urine Appearance Urine pH Ur Specific [place] Urine Protein Urine Glucose (UA) Urine Ketones Urine Blood Urine Nitrite Ur Leukocyte Esterase Urine RBC Urine WBC Ur Squamous Epith Cells Amorphous Sediment Urine Bacteria Hyaline Casts COVID-19 ([facility]RA[facility]) COVID-19 Clin Com Blood Type O Positive Antibody Screen NEGATIVE 11/16/20 11/16/20 11/16/20 22:32 22:32 22:34 MCV MCH MCHC RDW Plt Count MPV Immature Gran % (Auto) Neut % (Auto) Lymph % (Auto) Garza % (Auto) Eos % (Auto) Baso % (Auto) Lymph # (Auto) Garza # (Auto) Eos # (Auto) Baso # (Auto) Abs Immat Gran (auto) Absolute Neuts (auto) Absolute Nucleated RBC Nucleated RBC % (auto) PT INR APTT Anion Gap 17 Estim Creat Clear Calc 49.8 Estimated GFR > 60 Random Glucose 100 D Calcium 8.3 L Total Bilirubin 0.5 Direct Bilirubin 0.2 AST 32 H ALT 17 Alkaline Phosphatase 169 H D Troponin I High Sens 9.7 Total Protein 6.2 L Albumin 3.3 L Urine Color Urine Appearance Urine pH Ur Specific [place] Urine Protein Urine Glucose (UA) Urine Ketones Urine Blood Urine Nitrite Ur Leukocyte Esterase Urine RBC Urine WBC Ur Squamous Epith Cells Amorphous Sediment Urine Bacteria Hyaline Casts COVID-19 (KAREN) Negative COVID-19 Clin Com See Note Blood Type Antibody Screen 11/16/20 23:59 MCV MCH MCHC RDW Plt Count MPV Immature Gran % (Auto) Neut % (Auto) Lymph % (Auto) Garza % (Auto) Eos % (Auto) Baso % (Auto) Lymph # (Auto) Garza # (Auto) Eos # (Auto) Baso # (Auto) Abs Immat Gran (auto) Absolute Neuts (auto) Absolute Nucleated RBC Nucleated RBC % (auto) PT INR APTT Anion Gap Estim Creat Clear Calc Estimated GFR Random Glucose Calcium Total Bilirubin Direct Bilirubin AST ALT Alkaline Phosphatase Troponin I High Sens Total Protein Albumin Urine Color YELLOW Urine Appearance HAZY Urine pH 5.0 Ur Specific [place] >= 1.030 H Urine Protein 1+ H Urine Glucose (UA) NEG Urine Ketones NEG Urine Blood 3+ H Urine Nitrite NEG Ur Leukocyte Esterase NEG Urine RBC 50-75 H Urine WBC 0-2 Ur Squamous Epith Cells TRACE Amorphous Sediment 2+ Urine Bacteria NONE Hyaline Casts 0-2 COVID-19 (KAREN) COVID-19 Clin Com Blood Type Antibody Screen Imaging Radiologist's Impressions: Impressions Head CT 11/16/20 22:22 IMPRESSION: No acute intracranial pathology. Hip/Pelvis X-Ray 11/16/20 22:22 IMPRESSION: Displaced transcervical fracture of the left proximal femur. Assessment and Plan (1) Closed hip fracture: Qualifiers: Encounter type: initial encounter Laterality: left Qualified Code(s): S72.002A - Fracture of unspecified part of neck of left femur, initial encounter for closed fracture Status: Acute 79-year-old female with a past medical history of CLL, paroxysmal AFib, rheumatoid arthriti, recent diagnosis of UTI presented to the hospital with a chief complaint of fall and left hip pain noted to have left hip fracture. Admitted for further management. Left hip fracture: Fall precautions. Orthopedics consult. Pain control. Neurovascularly intact. Recurrent falls: Patient would benefit rehab placement to the time of discharge. UTI: Continue cephalexin. Cultures growing E coli. Sensitivities pending. History of AFib: Rate controlled. Hold Eliquis in anticipation for surgery. History of rheumatoid arthritis: Continue home medications. Preop evaluation: Patient is moderate to high risk for moderate risk surgery. Continue home beta-blockers in the perioperative period. DVT prophylaxis: Subcu heparin Code status: Full code
[2020-11-17] MEDS: Acetaminophen 325 MG TABLET 650 MG PO ×4 (02:39→21:48)
[2020-11-17 07:49] LABS: MANUAL DIFF FLAG NO
[2020-11-17 08:00] LABS: Basophils Absolute Auto 0.1 X10*3/uL (0.0-0.2); Basophils Percent Auto 0.6 % (0-2); Eosinophils Absolute Auto 0.1 X10*3/uL (0.0-0.4); Eosinophils Percent Auto 0.6 % (0-4); Hemoglobin 10.1 g/dl (12.0-16.0); Imm Gran Pct Auto 1.1 % (0.0-0.4); Lymphocytes Absolute Auto 1.6 X10*3/uL (1.2-4.9); Lymphocytes Percent Auto 17.5 % (20-40); Mean Corpuscular HGB Conc 31.6 g/dl (31.0-35.0); Mean Corpuscular Hemoglobin 22.5 pg (27.0-33.0); Mean Corpuscular Volume 71.4 fL (80-98); Mean Platelet Volume 10.8 fL (9.4-12.3); Monocytes Absolute Auto 1.2 X10*3/uL (0.1-1.2); Monocytes Percent Auto 13.2 % (2-11); Neutrophils Absolute Auto 6.3 X10*3/uL (2.0-8.3); Platelet Count 328 X10*3/uL (160-400); Red Blood Count 4.48 X10*6/uL (4.20-5.50); Red Cell Distribution Width 22.1 % (11.0-16.0); White Blood Count 9.4 X10*3/uL (4.8-10.8)
[2020-11-17 08:19] LABS: Anion Gap 12 (12-20); Blood Urea Nitrogen 11 mg/dL (9-16); Calcium 8.1 mg/dL (8.4-10.2); Carbon Dioxide 25 mmol/L (22-29); Chloride 107 mmol/L (96-108); Creatinine Clr Calc Pharmacy 47.8; Estimated Glomerular Filt Rate > 60; Glucose Random 81 mg/dL (60-115); Potassium 3.2 mmol/L (3.3-5.1); Sodium 141 mmol/L (135-145)
[2020-11-17] MEDS: Potassium Chloride ER 20 MEQ TAB.ER.PRT 40 MEQ PO (09:17)
[2020-11-17] MEDS: cephALEXin 500 MG CAPSULE PO ×4 (09:17→21:05)
[2020-11-17] MEDS: Folic Acid 1 MG TABLET PO (09:17)
[2020-11-17] MEDS: Omeprazole 20 MG CAPSULE.DR PO (09:17)
[2020-11-17] MEDS: Furosemide 20 MG TABLET PO (09:17)
[2020-11-17] MEDS: Hydroxychloroquine Sulfate 200 MG TABLET PO ×2 (09:17→21:05)
[2020-11-17] MEDS: Metoprolol Tartrate 50 MG TABLET 25 MG PO ×2 (09:17→21:05)
[2020-11-17] MEDS: 0.9 % Sodium Chloride Flush 3 ML SYRINGE IVFLUSH ×3 (09:17→21:07)
--- NOTE | 2020-11-17 09:53 | PM.EVENT ---
Event Note Date of Service: 11/17/20 Event Note: Left hip femoral neck fracture needs to be off eliquis 72 hours before surgery states last dose was 11/16/20 AM will plan for operative fixation thu/thursday full consult note follow
--- NOTE | 2020-11-17 09:54 | PM.CNOR ---
History of Present Illness HPI Consult date: 11/17/20 Chief complaint: Hip Fracture Narrative: Ms Parra is an 79 yo female who presented to the ED after sustaining a fall at home . She states she lives alone, she is independent with some of he basic needs, but she does have the help of her family and a [employer] for things like bathing. She states she does use a walker at home to ambulate. States yesterday she was walking and she did have her walker but thinks she may not have been holding on to it when she lost her balance and fell. She landed on her left side. She was unable to get up . Once in the ED, xays and examination of the left hip demonstrated femoral neck fracture left femur. She is on Eliquis for Afib and was admitted tot he medical service. Orthopedics was consulted for further recommendations of the left hip. Review of Systems Review of Systems: Yes all other systems are reviewed and are negative PMFSH Past Medical History Medical History CLL (chronic lymphocytic leukemia) Empyema lung Paroxysmal A-fib Rheumatoid arthritis Social History Social History (Updated 11/17/20 @ 16:01 by Jimbo Kruger PA-C) Household Members: None Housing: House Housing Other:: Uses walker Do you presently have visiting nurse or other home services: Yes ([employer]) Alcohol intake: never Smoking Status: Never smoker Smoked in Last 30 Days: No Use of substances other than those prescribed or required for medical reasons: No Currently Displaying Signs/Symptoms of Drug Intoxication Withdrawal: No Any prior treatment program specific to substance use: No Have you been hit, kicked, punched, or otherwise hurt by someone within the past year? If so, by whom?: No Do you feel safe in your current relationship?: No Current Relationship Are you made to feel afraid or neglected: No Advance Directives: No Advance Directives Information Provided: Yes Do you have thoughts of harming others: None Do you have a plan to hurt others: No Plan Recently lost weight without trying: No service: No Current occupational status: retired Meds Allergies Allergy/AdvReac Type Severity Reaction Status Date / Time crab AdvReac Intermediate NAUSEA & Verified 11/16/20 21:07 VOMITING crab Allergy Intermediate vomiting Uncoded 11/16/20 21:07 Active Medications: Current Medications Generic Name Dose Route Start Last Admin Trade Name Freddy PRN Reason Stop Dose Admin Acetaminophen 650 mg 11/17/20 00:42 11/17/20 09:18 Acetaminophen 325 Mg Tablet PO 650 mg Q6H PRN Administration Pain, Mild (Pain Scale 1-3) Cephalexin HCl 500 mg 11/17/20 09:00 11/17/20 09:17 Cephalexin 500 Mg Capsule PO 500 mg QID SHRUTI Administration Folic Acid 1 mg 11/17/20 09:00 11/17/20 09:17 Folic Acid 1 Mg Tablet PO 1 mg DAILY SHRUTI Administration Furosemide 20 mg 11/17/20 09:00 11/17/20 09:17 Furosemide 20 Mg Tablet PO 20 mg DAILY [facility] Administration Protocol Hydroxychloroquine Sulfate 200 mg 11/17/20 09:00 11/17/20 09:17 Hydroxychloroquine Sulfate 200 Mg Tablet PO 200 mg BID SHRUTI Administration Methotrexate 20 mg 11/17/20 00:45 Methotrexate Sodium 2.5 Mg Tablet PO QWEEK [facility] Metoprolol Tartrate 25 mg 11/17/20 09:00 11/17/20 09:17 Metoprolol Tartrate 50 Mg Tablet PO 25 mg BID SHRUTI Administration Protocol Non-Formulary Medication 1 tab 11/17/20 09:00 Ibrutinib [Imbruvica] PO DAILY [facility] Non-Formulary Medication 2 tab 11/17/20 09:00 Salsalate PO BID [facility] Omeprazole 20 mg 11/17/20 09:00 11/17/20 09:17 Omeprazole 20 Mg Capsule.Dr PO 20 mg DAILY SHRUTI Administration Sodium Chloride 3 ml 11/17/20 08:00 11/17/20 09:17 0.9 % Sodium Chloride Flush 3 Ml Syringe IVFLUSH 3 ml QSHIFT [facility] Administration Home Medications Medication Instructions Recorded Confirmed Last Taken Type apixaban [Eliquis] 1 tab PO BID 11/16/20 11/16/20 Unknown History folic acid 1 tab PO DAILY 11/16/20 11/16/20 Unknown History furosemide 1 tab PO DAILY 11/16/20 11/16/20 Unknown History hydroxychloroquine 1 tab PO BID 11/16/20 11/16/20 Unknown History ibrutinib [Imbruvica] 1 tab PO DAILY 11/16/20 11/16/20 Unknown History methotrexate sodium 8 tab PO QWEEK 11/16/20 11/16/20 Unknown History metoprolol tartrate 0.5 tab PO BID 11/16/20 11/16/20 Unknown History pantoprazole 1 tab PO DAILY 11/16/20 11/16/20 Unknown History salsalate 2 tab PO BID 11/16/20 11/16/20 Unknown History Physical Exam Vital Signs: Vital Signs: Last Vital Signs Temp 98.1 F 11/17/20 07:41 Pulse 80 11/17/20 09:17 Resp 18 11/17/20 07:41 BP 131/46 L 11/17/20 09:17 Pulse Ox 99 11/17/20 07:41 Body Mass Index 23.3 Const: General: cooperative and no acute distress Orientation/consciousness: patient oriented x3 Resp: Effort & Inspection: normal respiratory effort and able to speak in complete sentences Cardio: Peripheral pulses: Peripheral pulses 2+ throughout Neuro: General: patient oriented x3 Extrem: Other: Left hip skin intact, no open wounds, left leg [id number] and externally rotated. Pulses and sensation intact . Results Labs Result Diagrams: 11/17/20 07:33 11/17/20 07:33 Labs: Abnormal lab results 11/16/20 11/16/20 11/16/20 Range/Units 22:32 22:32 22:32 WBC 13.1 H (4.8-10.8) X10*3/uL Hgb 10.3 L (12.0-16.0) g/dl Hct 32.9 L (37-47) % MCV 70.4 L (80-98) fL MCH 22.1 L (27.0-33.0) pg RDW 21.9 H (11.0-16.0) % Immature Gran % (Auto) 1.5 H (0.0-0.4) % Neut % (Auto) 73.7 H (45-73) % Lymph % (Auto) 14.6 L (20-40) % [place] % (Auto) (2-11) % Abs Immat Gran (auto) 0.20 H (0.00-0.03) X10*3/uL Absolute Neuts (auto) 9.7 H (2.0-8.3) X10*3/uL PT 22.9 H (10.8-13.0) SEC INR 1.9 H (0.9-1.1) Potassium (3.3-5.1) mmol/L Carbon Dioxide 19 L (22-29) mmol/L Calcium 8.3 L (8.4-10.2) mg/dL AST 32 H (5-31) U/L Alkaline Phosphatase 169 H D (39-117) U/L Total Protein 6.2 L (6.5-8.0) g/dL Albumin 3.3 L (3.5-5.0) g/dL Ur Specific [place] (1.005-1.025) Urine Protein (NEG-TRACE) MG/DL Urine Blood (NEG) Urine RBC (0) /HPF 11/16/20 11/17/20 11/17/20 Range/Units 23:59 07:33 07:33 WBC (4.8-10.8) X10*3/uL Hgb 10.1 L (12.0-16.0) g/dl Hct 32.0 L (37-47) % MCV 71.4 L (80-98) fL MCH 22.5 L (27.0-33.0) pg RDW 22.1 H (11.0-16.0) % Immature Gran % (Auto) 1.1 H (0.0-0.4) % Neut % (Auto) (45-73) % Lymph % (Auto) 17.5 L (20-40) % [place] % (Auto) 13.2 H (2-11) % Abs Immat Gran (auto) 0.10 H (0.00-0.03) X10*3/uL Absolute Neuts (auto) (2.0-8.3) X10*3/uL PT (10.8-13.0) SEC INR (0.9-1.1) Potassium 3.2 L (3.3-5.1) mmol/L Carbon Dioxide (22-29) mmol/L Calcium 8.1 L (8.4-10.2) mg/dL AST (5-31) U/L Alkaline Phosphatase (39-117) U/L Total Protein (6.5-8.0) g/dL Albumin (3.5-5.0) g/dL Ur Specific [place] >= 1.030 H (1.005-1.025) Urine Protein 1+ H (NEG-TRACE) MG/DL Urine Blood 3+ H (NEG) Urine RBC 50-75 H (0) /HPF H & H 11/16/20 11/17/20 Range/Units 22:32 07:33 Hgb 10.3 L 10.1 L (12.0-16.0) g/dl Hct 32.9 L 32.0 L (37-47) % Coagulation 11/16/20 Range/Units 22:32 INR 1.9 H (0.9-1.1) All other labs normal. Diagnostic results Hip x-ray: image reviewed (Displaced transcervical fracture of the left proximal femur.) Assessment and Plan (1) Closed hip fracture: Qualifiers: Encounter type: initial encounter Laterality: left Qualified Code(s): S72.002A - Fracture of unspecified part of neck of left femur, initial encounter for closed fracture Status: Acute I discussed the case with Dr Hoover and explained the extent of the injury to the patient and options available which include surgical intervention. I explained the procedure in detail along with the length of recovery and rehab course. I explained the risk, benefits and alternatives. Risk including, but not limited to infection, blood clots, bleeding, non union or malunion and nerve/tissue damage to surrounding areas. I answered all their questions and with their understanding they have consented to move forward with Operative Fixation of the left hip. The patient will be T&S, med clearance obtained and she will need to be off her Eliquis for 72 hours before proceeding with surgery. She states her last dose was 11/16/20 in the morning.
--- NOTE | 2020-11-17 11:12 | MHC.CM.PN ---
PATIENT LIVES ALONE. SHE HAS SUPPORTIVE FAMILY IN THE AREA THAT VISITS FREQUENTLY. PATIENT RELIES ON A WHEELED WALKER FOR AMBULATION. SHE HAS PRIVATE PAY HOME HEALTH CURT A COUPLE OF TIMES EACH WEEK. FAMILY PROVIDES TRANSPORT. THERE IS A MOLST ON FILE. PATIENT IS WILLING TO ASSIGN HCP AGENTS PRIOR TO HER DISCHARGE. SHE IS CURRENTLY WITH HER GRANDSON IN ROOM AND IS AWARE CASE MANAGEMENT WILL ASSIST WITH HCP COMPLETION AT A LATER TIME DURING THIS STAY. REFERRAL PLACED TO [facility] PER REQUEST. IMM 11/17 IN CHART.
--- NOTE | 2020-11-17 11:16 | MHC.CM.PN ---
PCP IS DR LIZZ VERDE. UPDATE MADE IN QUICK TASK.
[2020-11-18] VITALS (8 sets, daily range): BP systolic 105–156; BP diastolic 44–59; PULSE 76–95; RESP 16–18; TEMP 36–37.3; O2SAT 92–96
[2020-11-18] MEDS: oxyCODONE HCl Immed Release 5 MG TABLET PO ×3 (02:31→21:22)
[2020-11-18] MEDS: Acetaminophen 325 MG TABLET 650 MG PO ×3 (03:47→20:26)
[2020-11-18] MEDS: Folic Acid 1 MG TABLET PO (08:57)
[2020-11-18] MEDS: 0.9 % Sodium Chloride Flush 3 ML SYRINGE IVFLUSH ×4 (08:57→23:47)
[2020-11-18] MEDS: Furosemide 20 MG TABLET PO (08:57)
[2020-11-18] MEDS: Omeprazole 20 MG CAPSULE.DR PO (08:57)
[2020-11-18] MEDS: Hydroxychloroquine Sulfate 200 MG TABLET PO ×2 (08:57→20:26)
[2020-11-18] MEDS: cephALEXin 500 MG CAPSULE PO ×4 (08:57→20:28)
[2020-11-18] MEDS: Metoprolol Tartrate 50 MG TABLET 25 MG PO ×2 (08:58→20:29)
[2020-11-18 10:33] LABS: MANUAL DIFF FLAG NO
[2020-11-18 10:36] LABS: Basophils Absolute Auto 0.1 X10*3/uL (0.0-0.2); Basophils Percent Auto 0.5 % (0-2); Eosinophils Absolute Auto 0.1 X10*3/uL (0.0-0.4); Eosinophils Percent Auto 0.8 % (0-4); Hematocrit 32.5 % (37-47); Hemoglobin 9.9 g/dl (12.0-16.0); Imm Gran Abs Auto 0.09 X10*3/uL (0.00-0.03); Imm Gran Pct Auto 0.8 % (0.0-0.4); Lymphocytes Absolute Auto 1.6 X10*3/uL (1.2-4.9); Lymphocytes Percent Auto 14.1 % (20-40); Mean Corpuscular HGB Conc 30.5 g/dl (31.0-35.0); Mean Corpuscular Hemoglobin 21.8 pg (27.0-33.0); Mean Corpuscular Volume 71.4 fL (80-98); Mean Platelet Volume 10.1 fL (9.4-12.3); Monocytes Absolute Auto 1.4 X10*3/uL (0.1-1.2); Neutrophils Absolute Auto 8.3 X10*3/uL (2.0-8.3); Neutrophils Percent Auto 71.8 % (45-73); Platelet Count 284 X10*3/uL (160-400); Red Blood Count 4.55 X10*6/uL (4.20-5.50); Red Cell Distribution Width 22.4 % (11.0-16.0); White Blood Count 11.5 X10*3/uL (4.8-10.8)
[2020-11-18 11:09] LABS: Anion Gap 13 (12-20); Blood Urea Nitrogen 13 mg/dL (9-16); Carbon Dioxide 23 mmol/L (22-29); Chloride 109 mmol/L (96-108); Creatinine Clr Calc Pharmacy 49.8; Estimated Glomerular Filt Rate > 60; Glucose Random 78 mg/dL (60-115); Potassium 3.7 mmol/L (3.3-5.1); Sodium 141 mmol/L (135-145)
--- NOTE | 2020-11-18 12:56 | PM.EVENT ---
Event Note Date of Service: 11/18/20 Event Note: Surgery planned for Thursday11/19/20
--- NOTE | 2020-11-18 14:17 | P.PNIM_ITS ---
Subjective Subjective Date of Service: 11/18/20 Interval History: Seen in f/u for hip fracture. Pain w/ movmemt Review of Systems Gen: no fever Resp: no sob, no cough CV: no chest, no LANDA, no leg edema GI: No n/v, no abd pain Neuro: No confusion MuskS:pain in the hip with movment Physical Exam Vital Signs: Vital Signs: Last Vital Signs Temp 97.4 F 11/18/20 11:36 Pulse 82 11/18/20 11:36 Resp 18 11/18/20 11:36 BP 148/58 H 11/18/20 11:36 Pulse Ox 96 11/18/20 11:36 Body Mass Index 23.3 Const: Other: . Objective Data Current Medications Generic Name Dose Route Start Last Admin Trade Name Freq PRN Reason Stop Dose Admin Acetaminophen 650 mg 11/17/20 00:42 11/18/20 11:38 Acetaminophen 325 Mg Tablet PO 650 mg Q6H PRN Administration Pain, Mild (Pain Scale 1-3) Cephalexin HCl 500 mg 11/17/20 09:00 11/18/20 12:57 Cephalexin 500 Mg Capsule PO 500 mg QID SHRUTI Administration Folic Acid 1 mg 11/17/20 09:00 11/18/20 08:57 Folic Acid 1 Mg Tablet PO 1 mg DAILY [facility]I Administration Furosemide 20 mg 11/17/20 09:00 11/18/20 08:57 Furosemide 20 Mg Tablet PO 20 mg DAILY [facility] Administration Protocol Hydroxychloroquine Sulfate 200 mg 11/17/20 09:00 11/18/20 08:57 Hydroxychloroquine Sulfate 200 Mg Tablet PO 200 mg BID SHRUTI Administration Methotrexate 20 mg 11/17/20 00:45 Methotrexate Sodium 2.5 Mg Tablet PO QWEEK [facility] Metoprolol Tartrate 25 mg 11/17/20 09:00 11/18/20 08:58 Metoprolol Tartrate 50 Mg Tablet PO 25 mg BID SHRUTI Administration Protocol Non-Formulary Medication 1 tab 11/17/20 09:00 Ibrutinib [Imbruvica] PO DAILY [facility] Non-Formulary Medication 2 tab 11/17/20 09:00 Salsalate PO BID [facility] Omeprazole 20 mg 11/17/20 09:00 11/18/20 08:57 Omeprazole 20 Mg Capsule.Dr PO 20 mg DAILY [facility] Administration Sodium Chloride 3 ml 11/17/20 08:00 11/18/20 08:57 0.9 % Sodium Chloride Flush 3 Ml Syringe IVFLUSH 3 ml QSHIFT [facility] Administration Labs CBC & Chem 7: 11/18/20 10:18 11/18/20 10:18 Assessment and Plan (1) Closed hip fracture: Status: Acute Assessment and Plan: 79-year-old female with a past medical history of CLL, paroxysmal AFib, rheumatoid arthriti, recent diagnosis of UTI presented to the hospital with a chief complaint of fall and left hip pain noted to have left hip fracture. Admitted for further management. Left hip fracture d/t fall Ortho will operate on her tomorrow as she has been on Eliquis and last dose on 11/16 No additional cardiopulmonary w/u at this Recurrent falls. to rehab at discharge, PT eval after surgery UTI: Continue cephalexin. Cultures growing E coli. Sensitivities pending. History of AFib: Hold Eliquis, continue Metorprolol History of rheumatoid arthritis: Continue home medications. Preop evaluation: Patient is moderate to high risk . Continue home beta- blockers in the perioperative period.
[2020-11-18] MEDS: Morphine Sulfate 2 MG/ML CARTRIDGE 1 MG IVPUSH (17:44)
[2020-11-19] VITALS (8 sets, daily range): BP systolic 124–143; BP diastolic 47–72; PULSE 84–94; RESP 12–18; TEMP 36.3–36.9; O2SAT 91–94
[2020-11-19] MEDS: oxyCODONE HCl Immed Release 5 MG TABLET PO ×3 (03:07→21:37)
[2020-11-19 05:53] LABS: MANUAL DIFF FLAG NO
[2020-11-19 05:58] LABS: Basophils Absolute Auto 0.1 X10*3/uL (0.0-0.2); Basophils Percent Auto 0.4 % (0-2); Eosinophils Absolute Auto 0.1 X10*3/uL (0.0-0.4); Eosinophils Percent Auto 0.3 % (0-4); Hematocrit 32.2 % (37-47); Imm Gran Pct Auto 0.7 % (0.0-0.4); Lymphocytes Absolute Auto 1.7 X10*3/uL (1.2-4.9); Lymphocytes Percent Auto 11.7 % (20-40); Mean Corpuscular HGB Conc 31.1 g/dl (31.0-35.0); Mean Corpuscular Volume 70.9 fL (80-98); Mean Platelet Volume 10.7 fL (9.4-12.3); Monocytes Absolute Auto 1.4 X10*3/uL (0.1-1.2); Monocytes Percent Auto 9.5 % (2-11); Neutrophils Absolute Auto 11.4 X10*3/uL (2.0-8.3); Neutrophils Percent Auto 77.4 % (45-73); Platelet Count 290 X10*3/uL (160-400); Red Blood Count 4.54 X10*6/uL (4.20-5.50); White Blood Count 14.8 X10*3/uL (4.8-10.8)
[2020-11-19 06:17] LABS: Anion Gap 16 (12-20); Blood Urea Nitrogen 13 mg/dL (9-16); Calcium 8.2 mg/dL (8.4-10.2); Carbon Dioxide 20 mmol/L (22-29); Chloride 107 mmol/L (96-108); Creatinine Clr Calc Pharmacy 50.5; Estimated Glomerular Filt Rate > 60; Glucose Random 64 mg/dL (60-115); Potassium 3.6 mmol/L (3.3-5.1); Sodium 139 mmol/L (135-145)
--- NOTE | 2020-11-19 07:42 | PM.PNORT ---
Subjective Subjective Date of Service: 11/19/20 Interval history: S/p left hip femoral neck fracture. Patient resting comfortably in bed. Pain is well controlled. No overnight events. Physical Exam Vital Signs: Vital Signs: Last Vital Signs Temp 97.8 F 11/19/20 07:39 Pulse 94 11/19/20 07:39 Resp 18 11/19/20 07:39 BP 143/53 H 11/19/20 07:39 Pulse Ox 93 11/19/20 07:39 Body Mass Index 23.3 Const: General: cooperative, healthy appearing and no acute distress Resp: Effort & Inspection: normal respiratory effort and able to speak in complete sentences Cardio: Rate: regular rate Peripheral pulses: Peripheral pulses 2+ throughout GI: Palpation (GI): Soft to palpation Skin: Lesions: no lesions Rashes: no rashes Extrem: Other: Left hip skin intact, no open wounds, left leg shortened and externally rotated. Pulses and sensation intact . Progress Note: A&P Assessment and plan (1) Closed hip fracture: Status: Acute Assessment and Plan: Continue to hold Eliquis. Plan for left hip leanne arthroplasty Thursday with Dr. Hoover. Fall Risk Details Current Medications: Current Medications Generic Name Dose Route Start Last Admin Trade Name Freq PRN Reason Stop Dose Admin Acetaminophen 650 mg 11/17/20 00:42 11/18/20 20:26 Acetaminophen 325 Mg Tablet PO 650 mg Q6H PRN Administration Pain, Mild (Pain Scale 1-3) Cephalexin HCl 500 mg 11/17/20 09:00 11/18/20 20:28 Cephalexin 500 Mg Capsule PO 500 mg QID SHRUTI Administration Folic Acid 1 mg 11/17/20 09:00 11/18/20 08:57 Folic Acid 1 Mg Tablet PO 1 mg DAILY SHRUTI Administration Furosemide 20 mg 11/17/20 09:00 11/18/20 08:57 Furosemide 20 Mg Tablet PO 20 mg DAILY [facility]I Administration Protocol Hydroxychloroquine Sulfate 200 mg 11/17/20 09:00 11/18/20 20:26 Hydroxychloroquine Sulfate 200 Mg Tablet PO 200 mg BID SHRUTI Administration Methotrexate 20 mg 11/17/20 00:45 Methotrexate Sodium 2.5 Mg Tablet PO QWEEK SHR[facility]I Metoprolol Tartrate 25 mg 11/17/20 09:00 11/18/20 20:29 Metoprolol Tartrate 50 Mg Tablet PO 25 mg BID SHRUTI Administration Protocol Non-Formulary Medication 1 tab 11/17/20 09:00 Ibrutinib [Imbruvica] PO DAILY [facility] Non-Formulary Medication 2 tab 11/17/20 09:00 Salsalate PO BID SHRUTI Omeprazole 20 mg 11/17/20 09:00 11/18/20 08:57 Omeprazole 20 Mg Capsule. PO 20 mg DAILY SHRUTI Administration Oxycodone HCl 5 mg 11/18/20 20:43 11/19/20 03:07 Oxycodone Hcl Immed Release 5 Mg Tablet PO 5 mg Q4H PRN Administration Breakthrough Pain Sodium Chloride 3 ml 11/17/20 08:00 11/18/20 23:47 0.9 % Sodium Chloride Flush 3 Ml Syringe IVFLUSH 3 ml QSHIFT SHRUTI Administration Time Spent With Patient Time: Total time spent is greater than 50% in coordination of care (as documented) at patient's floor/unit and/or counseling patient: Time with patient: less than 15 minutes
[2020-11-19] MEDS: cephALEXin 500 MG CAPSULE PO ×4 (08:59→20:19)
[2020-11-19] MEDS: Hydroxychloroquine Sulfate 200 MG TABLET PO ×2 (08:59→20:19)
[2020-11-19] MEDS: Furosemide 20 MG TABLET PO (08:59)
[2020-11-19] MEDS: Metoprolol Tartrate 50 MG TABLET 25 MG PO ×2 (08:59→20:19)
[2020-11-19] MEDS: Folic Acid 1 MG TABLET PO (09:00)
[2020-11-19] MEDS: Omeprazole 20 MG CAPSULE.DR PO (09:00)
--- NOTE | 2020-11-19 09:58 | P.PNIM_ITS ---
Subjective Subjective Date of Service: 11/19/20 Interval History: Seen in f/u for hip fracture. Pain w/ movmemt, surgery plan tomorrow Review of Systems Gen: no fever Resp: no sob, no cough CV: no chest, no LANDA, no leg edema GI: No n/v, no abd pain Neuro: No confusion MuskS:pain in the hip with movment Physical Exam Vital Signs: Vital Signs: Last Vital Signs Temp 97.8 F 11/19/20 07:39 Pulse 94 11/19/20 08:59 Resp 18 11/19/20 07:39 BP 143/53 H 11/19/20 08:59 Pulse Ox 93 11/19/20 07:39 Body Mass Index 23.3 General: AO X 3, no acute distress Resp: CTA bilateral CVS: S1,S2,RRR GI: +BS, NT, no distention Skin: No rash Neuro: motor grossly intact Psych: appropriate affect Musk Objective Data Current Medications Generic Name Dose Route Start Last Admin Trade Name Freq PRN Reason Stop Dose Admin Acetaminophen 650 mg 11/17/20 00:42 11/18/20 20:26 Acetaminophen 325 Mg Tablet PO 650 mg Q6H PRN Administration Pain, Mild (Pain Scale 1-3) Cephalexin HCl 500 mg 11/17/20 09:00 11/19/20 08:59 Cephalexin 500 Mg Capsule PO 500 mg QID SHRUTI Administration Folic Acid 1 mg 11/17/20 09:00 11/19/20 09:00 Folic Acid 1 Mg Tablet PO 1 mg DAILY SHR[facility]I Administration Furosemide 20 mg 11/17/20 09:00 11/19/20 08:59 Furosemide 20 Mg Tablet PO 20 mg DAILY SHR[facility]I Administration Protocol Hydroxychloroquine Sulfate 200 mg 11/17/20 09:00 11/19/20 08:59 Hydroxychloroquine Sulfate 200 Mg Tablet PO 200 mg BID SHRUTI Administration Methotrexate 20 mg 11/17/20 00:45 Methotrexate Sodium 2.5 Mg Tablet PO QWEEK [facility]I Metoprolol Tartrate 25 mg 11/17/20 09:00 11/19/20 08:59 Metoprolol Tartrate 50 Mg Tablet PO 25 mg BID SHRUTI Administration Protocol Non-Formulary Medication 1 tab 11/17/20 09:00 Ibrutinib [Imbruvica] PO DAILY [facility] Non-Formulary Medication 2 tab 11/17/20 09:00 Salsalate PO BID [facility]I Omeprazole 20 mg 11/17/20 09:00 11/19/20 09:00 Omeprazole 20 Mg Capsule.Dr PO 20 mg DAILY [facility]I Administration Oxycodone HCl 5 mg 11/18/20 20:43 11/19/20 03:07 Oxycodone Hcl Immed Release 5 Mg Tablet PO 5 mg Q4H PRN Administration Breakthrough Pain Sodium Chloride 3 ml 11/17/20 08:00 11/18/20 23:47 0.9 % Sodium Chloride Flush 3 Ml Syringe IVFLUSH 3 ml QSHIFT SHRUTI Administration Labs CBC & Chem 7: 11/19/20 05:47 11/19/20 05:47 Assessment and Plan (1) Closed hip fracture: Status: Acute Assessment and Plan: 79-year-old female with a past medical history of CLL, paroxysmal AFib, rheumatoid arthriti, recent diagnosis of UTI presented to the hospital with a chief complaint of fall and left hip pain noted to have left hip fracture. Admitted for further management. Left hip fracture d/t fall Ortho will operate on her tomorrow as she has been on Eliquis and last dose on 11/16 No additional cardiopulmonary w/u at this Recurrent falls. to rehab at discharge, PT eval after surgery UTI: Continue cephalexin. Cultures growing E coli. Sensitivities pending. History of AFib: Hold Eliquis, continue Metorprolol History of rheumatoid arthritis: Continue home medications. Preop evaluation: Patient is moderate to high risk . Continue home beta- blockers in the perioperative period.
--- NOTE | 2020-11-19 14:31 | MHC.CM.PN ---
NURSE BAND LINING BANDER NOTE ELECTRONIC MEDICAL RECORD REVIEWED ALONG WITH CASE DISCUSSED WITH STAFF NURSE AND ON MULTIPE DISCIPLIANRY ROUNDS,PATIENT IS SCHEDULED FOR LEFT HRMI ARTHROPLASTY ON THURSDAY (HLDING HIS ELIQUIS) DISCHARGE PLAN REFERRAL HAS ALREdy been iniated with kalee delgado for rehab respiratory care faculty to continue to follow
[2020-11-19] MEDS: 0.9 % Sodium Chloride Flush 3 ML SYRINGE IVFLUSH ×2 (17:09→20:20)
[2020-11-20] VITALS (8 sets, daily range): BP systolic 116–160; BP diastolic 51–74; PULSE 95–104; RESP 16–24; TEMP 36.7–37.7; O2SAT 91–97
[2020-11-20] MEDS: oxyCODONE HCl Immed Release 5 MG TABLET PO ×3 (03:41→21:41)
[2020-11-20 04:38] LABS: Basophils Absolute Auto 0.1 X10*3/uL (0.0-0.2); Basophils Percent Auto 0.4 % (0-2); Eosinophils Percent Auto 0.2 % (0-4); Hemoglobin 10.1 g/dl (12.0-16.0); Imm Gran Abs Auto 0.07 X10*3/uL (0.00-0.03); Imm Gran Pct Auto 0.5 % (0.0-0.4); Lymphocytes Absolute Auto 1.7 X10*3/uL (1.2-4.9); Lymphocytes Percent Auto 12.8 % (20-40); MANUAL DIFF FLAG SCAN; Mean Corpuscular HGB Conc 31.6 g/dl (31.0-35.0); Mean Corpuscular Hemoglobin 22.1 pg (27.0-33.0); Mean Corpuscular Volume 70.2 fL (80-98); Mean Platelet Volume 10.3 fL (9.4-12.3); Monocytes Absolute Auto 1.5 X10*3/uL (0.1-1.2); Monocytes Percent Auto 11.7 % (2-11); Neutrophils Absolute Auto 9.7 X10*3/uL (2.0-8.3); Neutrophils Percent Auto 74.4 % (45-73); Platelet Count 291 X10*3/uL (160-400); Red Blood Count 4.56 X10*6/uL (4.20-5.50); Red Cell Distribution Width 21.9 % (11.0-16.0); SCAN SMEAR FLAG 1
[2020-11-20 05:03] LABS: Anion Gap 17 (12-20); Blood Urea Nitrogen 15 mg/dL (9-16); Calcium 8.2 mg/dL (8.4-10.2); Carbon Dioxide 20 mmol/L (22-29); Chloride 106 mmol/L (96-108); Creatinine Clr Calc Pharmacy 50.5; Estimated Glomerular Filt Rate > 60; Glucose Random 84 mg/dL (60-115); Potassium 3.3 mmol/L (3.3-5.1); Sodium 140 mmol/L (135-145)
[2020-11-20 05:05] LABS: SLIDE REVIEW VERIFIED
[2020-11-20] MEDS: Metoprolol Tartrate 50 MG TABLET 25 MG PO ×2 (09:56→21:42)
[2020-11-20] MEDS: cephALEXin 500 MG CAPSULE PO (09:56)
[2020-11-20] MEDS: 0.9 % Sodium Chloride Flush 3 ML SYRINGE IVFLUSH ×2 (10:36→16:46)
[2020-11-20 11:58] LABS: INTERNATIONAL NORM RATIO 1.4 (0.9-1.1); Prothrombin Time 16.2 SEC (10.8-13.0)
--- NOTE | 2020-11-20 12:22 | MHC.CM.PN ---
PER MULTIDISCIPLINARY ROUNDS PT WILL HAVE HIP SURGERY TODAY, NO D/C PLAN FOR TODAY. CM RECEIVED CALL FROM OUSMANE AT [facility] TO CHECK ON DISCHARGE PLAN, THEY ARE AWARE PT HAVING SURGERY TODAY AND WILL CONT TO FOLLOW PT. CM TO SEND UPDATED CLINICALS ONCE AVAILABLE IN EMR. DISCHARGE PLAN: [facility] FOR STR, BLS TRANSPORT
--- NOTE | 2020-11-20 14:04 | HO.PM.IMPN ---
Subjective Subjective Date of Service: 11/20/20 Interval History: pain Cardiovascular Cardiovascular: Reports no additional cardiovascular complaints Respiratory Respiratory: Reports no additional respiratory complaints Physical Exam Vital Signs: Vital Signs: Last Vital Signs Temp 98.0 F 11/20/20 11:48 Pulse 98 11/20/20 11:48 Resp 17 11/20/20 11:48 BP 137/74 11/20/20 11:48 Pulse Ox 92 11/20/20 11:48 Body Mass Index 23.3 General: AO X 3, no acute distress Resp: CTA bilateral CVS: S1,S2,RRR GI: soft, non tender, non distended Neuro: motor grossly intact Psych: appropriate affect Objective Data Current Medications Generic Name Dose Route Start Last Admin Trade Name Freq PRN Reason Stop Dose Admin Acetaminophen 650 mg 11/17/20 00:42 11/18/20 20:26 Acetaminophen 325 Mg Tablet PO 650 mg Q6H PRN Administration Pain, Mild (Pain Scale 1-3) Cephalexin HCl 500 mg 11/17/20 09:00 11/20/20 13:02 Cephalexin 500 Mg Capsule PO Not Given QID SHRUTI Folic Acid 1 mg 11/17/20 09:00 11/20/20 10:18 Folic Acid 1 Mg Tablet PO Not Given DAILY SHR[facility]I Furosemide 20 mg 11/17/20 09:00 11/20/20 10:36 Furosemide 20 Mg Tablet PO Not Given DAILY SHRUTI Protocol Hydroxychloroquine Sulfate 200 mg 11/17/20 09:00 11/20/20 10:18 Hydroxychloroquine Sulfate 200 Mg Tablet PO Not Given BID SHRUTI Methotrexate 20 mg 11/17/20 00:45 Methotrexate Sodium 2.5 Mg Tablet PO QWEEK SHR[facility]I Metoprolol Tartrate 25 mg 11/17/20 09:00 11/20/20 09:56 Metoprolol Tartrate 50 Mg Tablet PO 25 mg BID SHRUTI Administration Protocol Non-Formulary Medication 1 tab 11/17/20 09:00 Ibrutinib [Imbruvica] PO DAILY [facility] Non-Formulary Medication 2 tab 11/17/20 09:00 Salsalate PO BID SHRUTI Omeprazole 20 mg 11/17/20 09:00 11/20/20 10:18 Omeprazole 20 Mg Capsule.Dr PO Not Given DAILY SHRUTI Oxycodone HCl 5 mg 11/18/20 20:43 11/20/20 09:56 Oxycodone Hcl Immed Release 5 Mg Tablet PO 5 mg Q4H PRN Administration Breakthrough Pain Sodium Chloride 3 ml 11/17/20 08:00 11/20/20 10:36 0.9 % Sodium Chloride Flush 3 Ml Syringe IVFLUSH 3 ml QSHIFT SHRUTI Administration Labs CBC & Chem 7: 11/20/20 04:26 11/20/20 04:26 Assessment and Plan (1) Closed hip fracture: Status: Acute Assessment and Plan: 79-year-old female with a past medical history of CLL, paroxysmal AFib, rheumatoid arthriti, recent diagnosis of UTI presented to the hospital with a chief complaint of fall and left hip pain noted to have left hip fracture. Admitted for further management. Left hip fracture d/t fall Ortho will operate on her today as she has been on Eliquis and last dose on 11/16 No additional cardiopulmonary w/u at this Recurrent falls. to rehab at discharge, PT eval after surgery UTI: Continue cephalexin. Cultures growing E coli. Sensitivite History of AFib: Hold Eliquis, continue Metorprolol History of rheumatoid arthritis: Continue plaquenil Preop evaluation: Patient is moderate to high risk . Continue home beta-blockers in the perioperative period.
--- NOTE | 2020-11-20 14:36 | PC.NURSE ---
pt surgery cancelled. Dr. Thomas spoke with DR. Sibley / hospitalist. Pt sob/Tachypenic? lungs poor air exchange. tight with slight wheeze noted. pt to rec. updraft and tx back to floor for further workup.
[2020-11-20] MEDS: Albuterol Sulfate (0.083%) 2.5 MG/3 ML VIAL.NEB INHALE (14:49)
[2020-11-20] MEDS: cefTRIAXone sodium 1 GM in 0.9 % Sodium Chloride 50 ML IV (16:45)
[2020-11-20] MEDS: Furosemide 40 MG/4 ML VIAL IVPUSH (16:46)
[2020-11-20 16:56] LABS: B Type Natriuretic Peptide 76 pg/mL (<100)
[2020-11-20] MEDS: Hydroxychloroquine Sulfate 200 MG TABLET PO (21:42)
[2020-11-21] VITALS (18 sets, daily range): BP systolic 100–145; BP diastolic 41–66; PULSE 70–105; RESP 16–22; TEMP 35.9–36.7; O2SAT 91–96
[2020-11-21] MEDS: 0.9 % Sodium Chloride Flush 3 ML SYRINGE IVFLUSH ×4 (01:29→17:47)
[2020-11-21] MEDS: oxyCODONE HCl Immed Release 5 MG TABLET PO (04:21)
[2020-11-21 06:33] LABS: INTERNATIONAL NORM RATIO 1.4 (0.9-1.1); Prothrombin Time 16.7 SEC (10.8-13.0)
[2020-11-21 06:52] LABS: Basophils Percent Auto 0.3 % (0-2); Hematocrit 33.4 % (37-47); Hemoglobin 10.3 g/dl (12.0-16.0); Imm Gran Abs Auto 0.06 X10*3/uL (0.00-0.03); Imm Gran Pct Auto 0.4 % (0.0-0.4); Lymphocytes Absolute Auto 1.6 X10*3/uL (1.2-4.9); Lymphocytes Percent Auto 11.4 % (20-40); MANUAL DIFF FLAG SCAN; Mean Corpuscular HGB Conc 30.8 g/dl (31.0-35.0); Mean Corpuscular Hemoglobin 21.6 pg (27.0-33.0); Mean Corpuscular Volume 70.2 fL (80-98); Mean Platelet Volume 10.5 fL (9.4-12.3); Monocytes Absolute Auto 1.7 X10*3/uL (0.1-1.2); Monocytes Percent Auto 11.9 % (2-11); Neutrophils Absolute Auto 10.8 X10*3/uL (2.0-8.3); Platelet Count 310 X10*3/uL (160-400); Red Blood Count 4.76 X10*6/uL (4.20-5.50); SCAN SMEAR FLAG 1; White Blood Count 14.2 X10*3/uL (4.8-10.8)
[2020-11-21 07:06] LABS: Anion Gap 17 (12-20); Blood Urea Nitrogen 20 mg/dL (9-16); Calcium 8.5 mg/dL (8.4-10.2); Carbon Dioxide 23 mmol/L (22-29); Chloride 106 mmol/L (96-108); Creatinine Clr Calc Pharmacy 50.5; Estimated Glomerular Filt Rate > 60; Glucose Fasting 102 mg/dL (60-99); Potassium 3.3 mmol/L (3.3-5.1); Sodium 143 mmol/L (135-145)
[2020-11-21 08:05] LABS: SLIDE REVIEW VERIFIED
[2020-11-21] MEDS: Metoprolol Tartrate 50 MG TABLET 25 MG PO ×2 (08:23→21:05)
--- NOTE | 2020-11-21 10:17 | P.CONAN_ITS ---
HPI - Anesthesia Eval Consult details Narrative: 79 F w/ hip fracture and worsening PNA. Covid Negative. Maintaining sats on 2L NC. Plan to proceed with spinal anesthetic under minimal sedation to minimize repiratory complications. PMF Active Problems Active Problems: All Active Problems (Updated 11/17/20 @ 00:26 by Adilson De Jesus MD) Closed hip fracture (Acute) Past Medical History Medical History CLL (chronic lymphocytic leukemia) Empyema lung Paroxysmal A-fib Rheumatoid arthritis Social History Social History (Updated 11/17/20 @ 16:01 by Jimbo Kruger PA-C) Household Members: None Housing: House Housing Other:: Uses walker Do you presently have visiting nurse or other home services: Yes (ACCOUNT SERVICES REPRESENTATIVE) Alcohol intake: never Smoking Status: Never smoker Smoked in Last 30 Days: No Use of substances other than those prescribed or required for medical reasons: No Currently Displaying Signs/Symptoms of Drug Intoxication Withdrawal: No Any prior treatment program specific to substance use: No Have you been hit, kicked, punched, or otherwise hurt by someone within the past year? If so, by whom?: No Do you feel safe in your current relationship?: No Current Relationship Are you made to feel afraid or neglected: No Advance Directives: No Advance Directives Information Provided: Yes Do you have thoughts of harming others: None Do you have a plan to hurt others: No Plan Recently lost weight without trying: No service: No Current occupational status: retired Meds Allergies Allergy/AdvReac Type Severity Reaction Status Date / Time crab AdvReac Intermediate NAUSEA & Verified 11/16/20 21:07 VOMITING crab Allergy Intermediate vomiting Uncoded 11/16/20 21:07 Active Medications: Current Medications Generic Name Dose Route Start Last Admin Trade Name Freq PRN Reason Stop Dose Admin Acetaminophen 650 mg 11/17/20 00:42 11/18/20 20:26 Acetaminophen 325 Mg Tablet PO 650 mg Q6H PRN Administration Pain, Mild (Pain Scale 1-3) Albuterol/Ipratropium 3 ml 11/20/20 14:37 Albuterol/Iprat 2.5/0.5mg 3 Ml Ampul.Neb INHALE RQ4H PRN sob Folic Acid 1 mg 11/17/20 09:00 11/21/20 10:15 Folic Acid 1 Mg Tablet PO Not Given DAILY [facility] Furosemide 40 mg 11/20/20 18:00 11/20/20 16:46 Furosemide 40 Mg/4 Ml Vial IVPUSH 40 mg BID@0900,1800 [facility] Administration Protocol Hydroxychloroquine Sulfate 200 mg 11/17/20 09:00 11/21/20 10:15 Hydroxychloroquine Sulfate 200 Mg Tablet PO Not Given BID [facility] Ceftriaxone Sodium 1 gm/ 50 mls @ 100 mls/hr 11/20/20 16:00 11/20/20 17:30 Sodium Chloride IV Infused Q24H [facility] Infusion Methotrexate 20 mg 11/17/20 00:45 Methotrexate Sodium 2.5 Mg Tablet PO QWEEK [facility] Metoprolol Tartrate 25 mg 11/17/20 09:00 11/21/20 08:23 Metoprolol Tartrate 50 Mg Tablet PO 25 mg BID [facility] Administration Protocol Non-Formulary Medication 1 tab 11/17/20 09:00 Ibrutinib [Imbruvica] PO DAILY [facility] Non-Formulary Medication 2 tab 11/17/20 09:00 Salsalate PO BID [facility] Omeprazole 20 mg 11/17/20 09:00 11/21/20 10:15 Omeprazole 20 Mg Capsule.Dr PO Not Given DAILY [facility] Oxycodone HCl 5 mg 11/18/20 20:43 11/21/20 04:21 Oxycodone Hcl Immed Release 5 Mg Tablet PO 5 mg Q4H PRN Administration Breakthrough Pain Sodium Chloride 3 ml 11/17/20 08:00 11/21/20 08:30 0.9 % Sodium Chloride Flush 3 Ml Syringe IVFLUSH 3 ml QSHIFT [facility] Administration Home Medications Medication Instructions Recorded Confirmed Last Taken Type apixaban [Eliquis] 1 tab PO BID 11/16/20 11/16/20 Unknown History folic acid 1 tab PO DAILY 11/16/20 11/16/20 Unknown History furosemide 1 tab PO DAILY 11/16/20 11/16/20 Unknown History hydroxychloroquine 1 tab PO BID 11/16/20 11/16/20 Unknown History ibrutinib [Imbruvica] 1 tab PO DAILY 11/16/20 11/16/20 Unknown History methotrexate sodium 8 tab PO QWEEK 11/16/20 11/16/20 Unknown History metoprolol tartrate 0.5 tab PO BID 11/16/20 11/16/20 Unknown History pantoprazole 1 tab PO DAILY 11/16/20 11/16/20 Unknown History salsalate 2 tab PO BID 11/16/20 11/16/20 Unknown History Exam Exam Date and Time: November 21, 2020 1017 Height,Weight and Vital Signs: Height 5 ft 2 in Weight 57.9 kg Last Vital Signs Temp 98 F 11/21/20 07:32 Pulse 73 11/21/20 08:23 Resp 19 11/21/20 07:32 BP 120/61 11/21/20 08:23 Pulse Ox 95 11/21/20 07:32 Pertinent Lab Results Pertinent Lab Results: Laboratory Tests 11/16/20 11/16/20 11/16/20 22:31 22:32 22:32 WBC 13.1 H RBC 4.67 Hgb 10.3 L Hct 32.9 L MCV 70.4 L MCH 22.1 L MCHC 31.3 RDW 21.9 H Plt Count 368 D MPV 10.1 Immature Gran % (Auto) 1.5 H Neut % (Auto) 73.7 H Lymph % (Auto) 14.6 L Spink % (Auto) 9.5 Eos % (Auto) 0.2 Baso % (Auto) 0.5 Lymph # (Auto) 1.9 Spink # (Auto) 1.2 Eos # (Auto) 0.0 Baso # (Auto) 0.1 Abs Immat Gran (auto) 0.20 H Absolute Neuts (auto) 9.7 H Absolute Nucleated RBC 0.000 Nucleated RBC % (auto) 0.0 Smear Tech's Comments PT 22.9 H INR 1.9 H APTT 33.7 Sodium Potassium Chloride Carbon Dioxide Anion Gap BUN Creatinine Estim Creat Clear Calc Estimated GFR Random Glucose Fasting Glucose Calcium Total Bilirubin Direct Bilirubin AST ALT Alkaline Phosphatase Troponin I High Sens B-Natriuretic Peptide Total Protein Albumin Urine Color Urine Appearance Urine pH Ur Specific Anderson Urine Protein Urine Glucose (UA) Urine Ketones Urine Blood Urine Nitrite Ur Leukocyte Esterase Urine RBC Urine WBC Ur Squamous Epith Cells Amorphous Sediment Urine Bacteria Hyaline Casts COVID-19 ([facility]AREN) COVID-19 Clin Com Blood Type O Positive Antibody Screen NEGATIVE 11/16/20 11/16/20 11/16/20 22:32 22:32 22:34 WBC RBC Hgb Hct MCV MCH MCHC RDW Plt Count MPV Immature Gran % (Auto) Neut % (Auto) Lymph % (Auto) Spink % (Auto) Eos % (Auto) Baso % (Auto) Lymph # (Auto) Spink # (Auto) Eos # (Auto) Baso # (Auto) Abs Immat Gran (auto) Absolute Neuts (auto) Absolute Nucleated RBC Nucleated RBC % (auto) Smear Tech's Comments PT INR APTT Sodium 138 Potassium 3.4 Chloride 105 Carbon Dioxide 19 L Anion Gap 17 BUN 10 Creatinine 0.70 Estim Creat Clear Calc 49.8 Estimated GFR > 60 Random Glucose 100 D Fasting Glucose Calcium 8.3 L Total Bilirubin 0.5 Direct Bilirubin 0.2 AST 32 H ALT 17 Alkaline Phosphatase 169 H D Troponin I High Sens 9.7 B-Natriuretic Peptide Total Protein 6.2 L Albumin 3.3 L Urine Color Urine Appearance Urine pH Ur Specific Anderson Urine Protein Urine Glucose (UA) Urine Ketones Urine Blood Urine Nitrite Ur Leukocyte Esterase Urine RBC Urine WBC Ur Squamous Epith Cells Amorphous Sediment Urine Bacteria Hyaline Casts COVID-19 (KAREN) Negative COVID-19 Clin Com See Note Blood Type Antibody Screen 11/16/20 11/17/20 11/17/20 23:59 07:33 07:33 WBC 9.4 RBC 4.48 Hgb 10.1 L Hct 32.0 L MCV 71.4 L MCH 22.5 L MCHC 31.6 RDW 22.1 H Plt Count 328 MPV 10.8 Immature Gran % (Auto) 1.1 H Neut % (Auto) 67.0 Lymph % (Auto) 17.5 L Spink % (Auto) 13.2 H Eos % (Auto) 0.6 Baso % (Auto) 0.6 Lymph # (Auto) 1.6 Spink # (Auto) 1.2 Eos # (Auto) 0.1 Baso # (Auto) 0.1 Abs Immat Gran (auto) 0.10 H Absolute Neuts (auto) 6.3 Absolute Nucleated RBC 0.000 Nucleated RBC % (auto) 0.0 Smear Tech's Comments PT INR APTT Sodium 141 Potassium 3.2 L Chloride 107 Carbon Dioxide 25 Anion Gap 12 BUN 11 Creatinine 0.73 Estim Creat Clear Calc 47.8 Estimated GFR > 60 Random Glucose 81 Fasting Glucose Calcium 8.1 L Total Bilirubin Direct Bilirubin AST ALT Alkaline Phosphatase Troponin I High Sens B-Natriuretic Peptide Total Protein Albumin Urine Color YELLOW Urine Appearance HAZY Urine pH 5.0 Ur Specific Anderson >= 1.030 H Urine Protein 1+ H Urine Glucose (UA) NEG Urine Ketones NEG Urine Blood 3+ H Urine Nitrite NEG Ur Leukocyte Esterase NEG Urine RBC 50-75 H Urine WBC 0-2 Ur Squamous Epith Cells TRACE Amorphous Sediment 2+ Urine Bacteria NONE Hyaline Casts 0-2 COVID-19 (KAREN) COVID-19 Clin Com Blood Type Antibody Screen 11/18/20 11/18/20 11/19/20 10:18 10:18 05:47 WBC 11.5 H 14.8 H RBC 4.55 4.54 Hgb 9.9 L 10.0 L Hct 32.5 L 32.2 L MCV 71.4 L 70.9 L MCH 21.8 L 22.0 L MCHC 30.5 L 31.1 RDW 22.4 H 22.0 H Plt Count 284 290 MPV 10.1 10.7 Immature Gran % (Auto) 0.8 H 0.7 H Neut % (Auto) 71.8 77.4 H Lymph % (Auto) 14.1 L 11.7 L Spink % (Auto) 12.0 H 9.5 Eos % (Auto) 0.8 0.3 Baso % (Auto) 0.5 0.4 Lymph # (Auto) 1.6 1.7 Spink # (Auto) 1.4 H 1.4 H Eos # (Auto) 0.1 0.1 Baso # (Auto) 0.1 0.1 Abs Immat Gran (auto) 0.09 H 0.10 H Absolute Neuts (auto) 8.3 11.4 H Absolute Nucleated RBC 0.000 0.000 Nucleated RBC % (auto) 0.0 0.0 Smear Tech's Comments PT INR APTT Sodium 141 Potassium 3.7 Chloride 109 H Carbon Dioxide 23 Anion Gap 13 BUN 13 Creatinine 0.70 Estim Creat Clear Calc 49.8 Estimated GFR > 60 Random Glucose 78 Fasting Glucose Calcium 8.0 L Total Bilirubin Direct Bilirubin AST ALT Alkaline Phosphatase Troponin I High Sens B-Natriuretic Peptide Total Protein Albumin Urine Color Urine Appearance Urine pH Ur Specific Anderson Urine Protein Urine Glucose (UA) Urine Ketones Urine Blood Urine Nitrite Ur Leukocyte Esterase Urine RBC Urine WBC Ur Squamous Epith Cells Amorphous Sediment Urine Bacteria Hyaline Casts COVID-19 (KAREN) COVID-19 Clin Com Blood Type Antibody Screen 11/19/20 11/20/20 11/20/20 05:47 04:26 04:26 WBC 13.0 H RBC 4.56 Hgb 10.1 L Hct 32.0 L MCV 70.2 L MCH 22.1 L MCHC 31.6 RDW 21.9 H Plt Count 291 MPV 10.3 Immature Gran % (Auto) 0.5 H Neut % (Auto) 74.4 H Lymph % (Auto) 12.8 L Spink % (Auto) 11.7 H Eos % (Auto) 0.2 Baso % (Auto) 0.4 Lymph # (Auto) 1.7 Spink # (Auto) 1.5 H Eos # (Auto) 0.0 Baso # (Auto) 0.1 Abs Immat Gran (auto) 0.07 H Absolute Neuts (auto) 9.7 H Absolute Nucleated RBC 0.000 Nucleated RBC % (auto) 0.0 Smear Tech's Comments VERIFIED PT INR APTT Sodium 139 140 Potassium 3.6 3.3 Chloride 107 106 Carbon Dioxide 20 L 20 L Anion Gap 16 17 BUN 13 15 Creatinine 0.69 0.69 Estim Creat Clear Calc 50.5 50.5 Estimated GFR > 60 > 60 Random Glucose 64 84 Fasting Glucose Calcium 8.2 L 8.2 L Total Bilirubin Direct Bilirubin AST ALT Alkaline Phosphatase Troponin I High Sens B-Natriuretic Peptide Total Protein Albumin Urine Color Urine Appearance Urine pH Ur Specific Anderson Urine Protein Urine Glucose (UA) Urine Ketones Urine Blood Urine Nitrite Ur Leukocyte Esterase Urine RBC Urine WBC Ur Squamous Epith Cells Amorphous Sediment Urine Bacteria Hyaline Casts COVID-19 ([facility]AREN) COVID-19 Clin Com Blood Type Antibody Screen 11/20/20 11/20/20 11/20/20 04:26 11:32 16:21 WBC RBC Hgb Hct MCV MCH MCHC RDW Plt Count MPV Immature Gran % (Auto) Neut % (Auto) Lymph % (Auto) Spink % (Auto) Eos % (Auto) Baso % (Auto) Lymph # (Auto) Spink # (Auto) Eos # (Auto) Baso # (Auto) Abs Immat Gran (auto) Absolute Neuts (auto) Absolute Nucleated RBC Nucleated RBC % (auto) Smear Tech's Comments PT 16.2 H D INR 1.4 H APTT Sodium Potassium Chloride Carbon Dioxide Anion Gap BUN Creatinine Estim Creat Clear Calc Estimated GFR Random Glucose Fasting Glucose Calcium Total Bilirubin Direct Bilirubin AST ALT Alkaline Phosphatase Troponin I High Sens B-Natriuretic Peptide 76 Total Protein Albumin Urine Color Urine Appearance Urine pH Ur Specific Anderson Urine Protein Urine Glucose (UA) Urine Ketones Urine Blood Urine Nitrite Ur Leukocyte Esterase Urine RBC Urine WBC Ur Squamous Epith Cells Amorphous Sediment Urine Bacteria Hyaline Casts COVID-19 (KAREN) COVID-19 Clin Com Blood Type O Positive Antibody Screen NEGATIVE 11/21/20 11/21/20 11/21/20 06:12 06:12 06:12 WBC 14.2 H RBC 4.76 Hgb 10.3 L Hct 33.4 L MCV 70.2 L MCH 21.6 L MCHC 30.8 L RDW 22.0 H Plt Count 310 MPV 10.5 Immature Gran % (Auto) 0.4 Neut % (Auto) 76.0 H Lymph % (Auto) 11.4 L Spink % (Auto) 11.9 H Eos % (Auto) 0.0 Baso % (Auto) 0.3 Lymph # (Auto) 1.6 Spink # (Auto) 1.7 H Eos # (Auto) 0.0 Baso # (Auto) 0.0 Abs Immat Gran (auto) 0.06 H Absolute Neuts (auto) 10.8 H Absolute Nucleated RBC 0.000 Nucleated RBC % (auto) 0.0 Smear Tech's Comments VERIFIED PT 16.7 H INR 1.4 H APTT Sodium 143 Potassium 3.3 Chloride 106 Carbon Dioxide 23 Anion Gap 17 BUN 20 H Creatinine 0.69 Estim Creat Clear Calc 50.5 Estimated GFR > 60 Random Glucose TNP Fasting Glucose 102 H Calcium 8.5 Total Bilirubin Direct Bilirubin AST ALT Alkaline Phosphatase Troponin I High Sens B-Natriuretic Peptide Total Protein Albumin Urine Color Urine Appearance Urine pH Ur Specific Anderson Urine Protein Urine Glucose (UA) Urine Ketones Urine Blood Urine Nitrite Ur Leukocyte Esterase Urine RBC Urine WBC Ur Squamous Epith Cells Amorphous Sediment Urine Bacteria Hyaline Casts COVID-19 (KAREN) COVID-19 Clin Com Blood Type Antibody Screen Assessment and Plan Assessment Anesthesia Assessment: Anesthesia Plan Discussed and Chart Reviewed Final Anesthetic Review NPO: Yes ASA Class: III Final Preanesthetic Review: No Changes in Pt Med Stat, Meds/Allgs Chart Reviewed, Consent Obtained/Reviewed and Anes Risks/Benef Reviewed Patient Risk: High Procedure Risk: Intermediate Anesthetic Plan Anesthetic Plan: MAC: and Spinal (Echo WNL, Apixaban last dose 5 days ago) Disposition: Standard PACU
--- NOTE | 2020-11-21 10:30 | CA_ITS ---
Transthoracic Echocardiogram Patient (Last, First, Middle): Selene Parra E Gender: Female Date of : 1940 Age: 79 Procedure Date: 11/21/2020 Procedure Type: Transthoracic Echocardiogram Location: S3E Height: 157.48 cm Weight: 57.61 kg BSA: 1.58 m2 Heart Rate: bpm BP: 127 / 49 mmHg Track Repair Laborer: Referring MD: Alexys Zavala MD Symptoms: chf Study Quality: Fair ECG Rhythm: Sinus Conclusions: - The left ventricular systolic function is normal. The visually estimated ejection fraction is between 60-65%. - There is moderate mitral annular calcification. - No obvious valvular pathology seen on this study. Findings Left Ventricle Normal left ventricular cavity size. There is mildly increased left ventricular wall thickness. The left ventricular systolic function is normal. The visually estimated ejection fraction is between 60-65%. E/E prime ratio is >15, consistent with elevated filling pressures. Evidence suggests grade I (mild) diastolic dysfunction. Right Ventricle Normal right ventricular cavity size. There is low normal right ventricular systolic function. Atria The left atrium is normal in size. The right atrium is normal in size. Aortic Valve There is a normal trileaflet aortic valve. There is no aortic valve stenosis. There is no aortic valve regurgitation. Mitral Valve There is moderate mitral annular calcification. There is trace mitral valve regurgitation. There is no mitral valve stenosis. Pulmonic Valve The pulmonic valve was not well visualized. Tricuspid Valve Normal tricuspid valve structure. There is trace tricuspid valve regurgitation. The pulmonary artery systolic pressure is normal. Great Vessels The aortic annulus, sinuses of valsalva, and asc aorta are normal in size. Venous The inferior vena cava is normal in size and collapses greater than 50% with inspiration. Pericardium/Pleural There is no evidence of pericardial effusion. There is a left sided pleural effusion. Prior Study Comparison No significant change compared to prior study dated: 03/29/2018. Recommendations, Care & Conclusions No obvious valvular pathology seen on this study. Measurements 2D Linear Measurements IVSd: 1.07 0.6-0.9/0.6-1.0 cm LVIDd: 3.36 3.9-5.3/4.2-5.9 cm LVIDd Index: 2.13 2.4-3.2/2.2-3.1 cm/m2 LVIDs: 1.94 2.0-3.6 cm LVPWd: 1.09 0.7-1.1 cm Ao Root: 3.00 2.1-3.5 cm LA Diam: 2.80 2.7-3.8/3.0-4.0 cm LAIDs Index: 1.77 1.5-2.3 cm/m2 LV Mass: 135.47 67-162/88-224 g LV Mass Index: 85.74 43-95/49-115 g/m2 LVOT Diam: 2.00 3.0+(-)1.3 cm Mitral Valve MV VTI: 0.31 MV Pk Pk: 1.60 MV Mn Pk: 0.91 MV Pk Grad: 10.00 MV Mn Grad: 4.00 MV Pk E: 0.89 MV PK A: 1.40 MV Decel Time: 194.00 E/A: 0.60 E'Medial: 4.35 E/E' Med: 20.40 PHT: 57.00 MVA PHT: 3.86 MVA Continuity: 1.97 Decel [place]: 4.58 Aortic Valve AoV Pk Pk: 1.15 AoV Mn Pk: 0.71 AoV VTI: 0.26 AoV Pk Grad: 5.00 Aov Mn Grad: 3.00 INDIRA Cont.VTI: 2.34 LVOT LVOT Pk Pk: 0.95 LVOT Mn Pk: 0.60 LVOT VTI: 0.20 LVOT Pk Grad: 4.00 LVOT Mn Grad: 2.00 LVOT Diam: 2.00 LVOT Area: 3.14 Diastolic Function MV Pk E: 0.89 MV Pk A: 1.40 E/A: 0.60 E'Medial: 4.35 E/E' Med: 20.40 Tricuspid Valve TR Pk Pk: 1.96 TR Pk Grad: 15.00 RA Press: 3.00 RVSP: 18.00 Great Vessels Aorta Ao Root-2D: 3.00 2.0-3.7 cm Ao Asc: 2.80 2.1-3.4 cm Pulmonary Valve PV Pk Pk: 0.88 Peak PV Grad: 3.00 Updated in Other Vendor System with Status of Final Michael Terrell MD electronically signed on 11/21/2020 11:24:08 AM with status of Final
[2020-11-21] MEDS: Furosemide 40 MG/4 ML VIAL IVPUSH (10:43)
--- NOTE | 2020-11-21 11:36 | P.PNIM_ITS ---
Subjective Subjective Date of Service: 11/21/20 Interval History: sob on exertion, hip pain Cardiovascular Cardiovascular: Reports no additional cardiovascular complaints Gastrointestinal Gastrointestinal: Reports no additional gastrointestinal complaints Physical Exam Vital Signs: Vital Signs: Last Vital Signs Temp 98.0 F 11/21/20 11:14 Pulse 93 11/21/20 11:14 Resp 22 H 11/21/20 11:14 BP 127/56 L 11/21/20 11:14 Pulse Ox 96 11/21/20 11:14 Body Mass Index 23.3 General: lethargic O X 3, no acute distress, frail appearing Resp: diminished on left, crackles on right CVS: S1,S2,RRR GI: soft, non tender, non distended Neuro: motor grossly intact Psych: appropriate affect Objective Data Current Medications Generic Name Dose Route Start Last Admin Trade Name Freq PRN Reason Stop Dose Admin Acetaminophen 650 mg 11/17/20 00:42 11/18/20 20:26 Acetaminophen 325 Mg Tablet PO 650 mg Q6H PRN Administration Pain, Mild (Pain Scale 1-3) Albuterol/Ipratropium 3 ml 11/20/20 14:37 Albuterol/Iprat 2.5/0.5mg 3 Ml Ampul.Neb INHALE RQ4H PRN sob Folic Acid 1 mg 11/17/20 09:00 11/21/20 10:15 Folic Acid 1 Mg Tablet PO Not Given DAILY [facility] Hydroxychloroquine Sulfate 200 mg 11/17/20 09:00 11/21/20 10:15 Hydroxychloroquine Sulfate 200 Mg Tablet PO Not Given BID [facility] Ceftriaxone Sodium 1 gm/ 50 mls @ 100 mls/hr 11/20/20 16:00 11/20/20 17:30 Sodium Chloride IV Infused Q24H [facility] Infusion Methotrexate 20 mg 11/17/20 00:45 Methotrexate Sodium 2.5 Mg Tablet PO QWEEK [facility] Metoprolol Tartrate 25 mg 11/17/20 09:00 11/21/20 08:23 Metoprolol Tartrate 50 Mg Tablet PO 25 mg BID [facility] Administration Protocol Non-Formulary Medication 1 tab 11/17/20 09:00 Ibrutinib [Imbruvica] PO DAILY [facility] Non-Formulary Medication 2 tab 11/17/20 09:00 Salsalate PO BID [facility] Omeprazole 20 mg 11/17/20 09:00 11/21/20 10:15 Omeprazole 20 Mg Capsule. PO Not Given DAILY [facility] Oxycodone HCl 5 mg 11/18/20 20:43 11/21/20 04:21 Oxycodone Hcl Immed Release 5 Mg Tablet PO 5 mg Q4H PRN Administration Breakthrough Pain Sodium Chloride 3 ml 11/17/20 08:00 11/21/20 08:30 0.9 % Sodium Chloride Flush 3 Ml Syringe IVFLUSH 3 ml QSHIFT [facility] Administration Labs CBC & Chem 7: 11/21/20 06:12 11/21/20 06:12 Assessment and Plan (1) Closed hip fracture: Status: Acute Assessment and Plan: 79-year-old female with a past medical history of CLL, paroxysmal AFib, rheumatoid arthriti, recent diagnosis of UTI presented to the hospital with a chief complaint of fall and left hip pain noted to have left hip fracture. Admitted for further management. Left hip fracture d/t fall surgery was delayed yesterday due to acute hypoxic respiraotry failue, cxr showed chronic left effusion and right sided opacity, ?pneumonia vs edema. cephalexin changed to iv rocephin, bnp <100, was started on iv lasix, but next d ay cxr looks worse, more in favour of pneumonia. check covid UTI continue rocephin afib metoprolol, holding eliquis for surgery RA gutierrez
[2020-11-21 11:57] LABS: COVID-19 Test Negative (Negative); IDNOW Serial# 9DD0AD1C
--- NOTE | 2020-11-21 13:22 | PM.OP ---
Brief Operative Note Date of Service: 11/21/20 Pre-op diagnosis: left femoral neck fracture Post-op diagnosis: same Procedure: left hip leanne Implants: harshad accolade2 #4 with +4 bipolar Surgeon: Luther Hoover MD Anesthesia: MAC and spinal Party Plan Sales Unit Sales Leader: Siri Velásquez Estimated blood loss (mL): 100 IV fluids (mL): 500 Pathology: other Condition: stable Disposition: PACU
--- NOTE | 2020-11-21 15:26 | MHC.CM.PN ---
Addendum entered by Isadora Aguilar RN 11/21/20 15:46: [facility] CONT'S TO FOLLOW PT, REFERRAL UPDATED Original Note: PT'S SURGERY D/C'D YESTERDAY DUE TO ACUTE HYPOXIC RESPIRATORY FAILURE, PT WAS RETURNED TO UNIT FOR TX & WORK-UP, PT HAD SURGERY TODAY AND HAS JUST RETURNED TO UNIT AT TIME OF THIS NOTE, NO PLAN FOR D/C TODAY. CM WILL CONT TO MONITOR FOR D/C NEEDS.
[2020-11-21] MEDS: cefTRIAXone sodium 1 GM in 0.9 % Sodium Chloride 50 ML IV (17:14)
[2020-11-21] MEDS: HYDROmorphone HCl 0.5 MG/0.5 ML SYRINGE 0.25 MG IVPUSH ×2 (17:20→21:03)
[2020-11-21] MEDS: Dextrose 5 % and 0.45 % NaCl 1,000 ML 80 ML IVCONT (17:45)
[2020-11-21] MEDS: ceFAZolin Sodium/Dextrose,Iso 2 GM/50 ML PIGGYBACK IV (18:27)
[2020-11-21] MEDS: Hydroxychloroquine Sulfate 200 MG TABLET PO (21:06)
[2020-11-22] VITALS (11 sets, daily range): BP systolic 99–142; BP diastolic 44–69; PULSE 78–100; RESP 18–21; TEMP 35.8–36.5; O2SAT 90–96
[2020-11-22] MEDS: 0.9 % Sodium Chloride Flush 3 ML SYRINGE IVFLUSH ×6 (00:26→20:03)
[2020-11-22] MEDS: Dextrose 5 % and 0.45 % NaCl 1,000 ML 80 ML IVCONT (04:56)
[2020-11-22] MEDS: HYDROmorphone HCl 0.5 MG/0.5 ML SYRINGE 0.25 MG IVPUSH ×3 (05:05→19:56)
--- NOTE | 2020-11-22 08:35 | PM.PNORT ---
Subjective Subjective Date of Service: 11/22/20 Interval history: POD1 s/p left hip hemiarthroplasty with Dr. Hoover. Pain is well controlled. No overnight events. No additional complaints. Physical Exam Vital Signs: Vital Signs: Last Vital Signs Temp 97.3 F 11/22/20 07:33 Pulse 94 11/22/20 07:33 Resp 18 11/22/20 07:33 BP 133/59 L 11/22/20 07:33 Pulse Ox 90 L 11/22/20 07:33 Body Mass Index 23.3 Const: General: cooperative, healthy appearing and no acute distress Resp: Effort & Inspection: normal respiratory effort and able to speak in complete sentences Cardio: Rate: regular rate Peripheral pulses: Peripheral pulses 2+ throughout GI: Palpation (GI): Soft to palpation Skin: Lesions: no lesions Rashes: no rashes Extrem: Other: Left hip no ecchymosis, redness, or drainage. Aquacel dressing is clean, dry, and intact. NVI. Progress Note: A&P Assessment and plan (1) Closed hip fracture: Status: Acute Assessment and Plan: Continue pain mgmnt Resume Eliquis 23 hrs post op for dvt ppx begin PT for left hip hmiarthroplasty Dispo planning-Pending PT eval, pain mgmnt Fall Risk Details Current Medications: Current Medications Generic Name Dose Route Start Last Admin Trade Name Freq PRN Reason Stop Dose Admin Acetaminophen 650 mg 11/17/20 00:42 11/18/20 20:26 Acetaminophen 325 Mg Tablet PO 650 mg Q6H PRN Administration Pain, Mild (Pain Scale 1-3) Albuterol/Ipratropium 3 ml 11/20/20 14:37 Albuterol/Iprat 2.5/0.5mg 3 Ml Ampul.Neb INHALE RQ4H PRN sob Apixaban 5 mg 11/22/20 12:30 Apixaban 5 Mg Tablet PO BID [facility] Folic Acid 1 mg 11/17/20 09:00 11/21/20 10:15 Folic Acid 1 Mg Tablet PO Not Given DAILY [facility] Hydromorphone HCl 0.25 mg 11/21/20 16:37 11/22/20 05:05 Hydromorphone Hcl 0.5 Mg/0.5 Ml Syringe IVPUSH 0.25 mg Q4H PRN Administration Pain, Severe (Pain Scale 7-10) Hydroxychloroquine Sulfate 200 mg 11/17/20 09:00 11/21/20 21:06 Hydroxychloroquine Sulfate 200 Mg Tablet PO 200 mg BID [facility]I Administration Ceftriaxone Sodium 1 gm/ 50 mls @ 100 mls/hr 11/20/20 16:00 11/21/20 17:48 Sodium Chloride IV Infused Q24H [facility] Infusion Dextrose/Sodium Chloride 1,000 mls @ 80 mls/hr 11/21/20 16:37 11/22/20 04:56 D51/2ns IVCONT 80 mls/hr .[id number] [facility]RUTI Administration Methotrexate 20 mg 11/17/20 00:45 Methotrexate Sodium 2.5 Mg Tablet PO QWEEK [facility] Metoprolol Tartrate 25 mg 11/17/20 09:00 11/21/20 21:05 Metoprolol Tartrate 50 Mg Tablet PO 25 mg BID [facility]I Administration Protocol Naloxone HCl 0.2 mg 11/21/20 16:37 Naloxone Hcl 0.4 Mg/Ml Vial IVPUSH Q2M PRN Excessive sedation or RR < 8 Non-Formulary Medication 1 tab 11/17/20 09:00 Ibrutinib [Imbruvica] PO DAILY [facility] Non-Formulary Medication 2 tab 11/17/20 09:00 Salsalate PO BID [facility] Omeprazole 20 mg 11/17/20 09:00 11/21/20 10:15 Omeprazole 20 Mg Capsule.Dr PO Not Given DAILY [facility] Senna 17.2 mg 11/21/20 16:37 Sennosides 8.6 Mg Tablet PO BEDTIME PRN Constipation Sodium Chloride 3 ml 11/17/20 08:00 11/22/20 00:26 0.9 % Sodium Chloride Flush 3 Ml Syringe IVFLUSH 3 ml QSHIFT [facility]I Administration Sodium Chloride 3 ml 11/21/20 16:37 11/22/20 00:26 0.9 % Sodium Chloride Flush 3 Ml Syringe IVFLUSH 3 ml QSHIFT [facility] Administration Time Spent With Patient Time: Total time spent is greater than 50% in coordination of care (as documented) at patient's floor/unit and/or counseling patient: Time with patient: less than 15 minutes
[2020-11-22] MEDS: Folic Acid 1 MG TABLET PO (08:37)
[2020-11-22] MEDS: Acetaminophen 325 MG TABLET 650 MG PO ×2 (08:38→23:03)
[2020-11-22] MEDS: Metoprolol Tartrate 50 MG TABLET 25 MG PO ×2 (08:40→19:59)
[2020-11-22] MEDS: Hydroxychloroquine Sulfate 200 MG TABLET PO ×2 (08:43→19:59)
[2020-11-22] MEDS: Omeprazole 20 MG CAPSULE.DR PO (08:45)
--- NOTE | 2020-11-22 12:05 | HO.PM.IMPN ---
Subjective Subjective Date of Service: 11/22/20 Interval History: pt seen and examined this AM doing better in regards to breathing hip pain persits, but controlled denies any chest pain ROS General - no fevers or chills Cardiovascular - no chest pain Respiratory - sob improved, denies cough Abdominal- no abdominal pain, nausea, vomiting, diarrhea Physical Exam Vital Signs: Vital Signs: Last Vital Signs Temp 97.5 F 11/22/20 11:36 Pulse 79 11/22/20 11:36 Resp 20 11/22/20 11:36 BP 122/45 L 11/22/20 11:36 Pulse Ox 92 11/22/20 11:36 Body Mass Index 23.3 General - no acute distress, appears comfortable Cardiovascular - regular rate and rhythm, S1-S2 Lungs - diminised sounds, but no rales/rhonchi heard; saturations low 90s on 2L Abdomen - soft, nontender, no rebound or guarding Extremities - no edema bilaterally Neuro - awake and alert, no focal deficits Objective Data Current Medications Generic Name Dose Route Start Last Admin Trade Name Paulq PRN Reason Stop Dose Admin Acetaminophen 650 mg 11/17/20 00:42 11/22/20 08:38 Acetaminophen 325 Mg Tablet PO 650 mg Q6H PRN Administration Pain, Mild (Pain Scale 1-3) Albuterol/Ipratropium 3 ml 11/20/20 14:37 Albuterol/Iprat 2.5/0.5mg 3 Ml Ampul.Neb INHALE RQ4H PRN sob Apixaban 5 mg 11/22/20 12:30 Apixaban 5 Mg Tablet PO BID SHRUTI Folic Acid 1 mg 11/17/20 09:00 11/22/20 08:37 Folic Acid 1 Mg Tablet PO 1 mg DAILY SHRUTI Administration Hydromorphone HCl 0.25 mg 11/21/20 16:37 11/22/20 05:05 Hydromorphone Hcl 0.5 Mg/0.5 Ml Syringe IVPUSH 0.25 mg Q4H PRN Administration Pain, Severe (Pain Scale 7-10) Hydroxychloroquine Sulfate 200 mg 11/17/20 09:00 11/22/20 08:43 Hydroxychloroquine Sulfate 200 Mg Tablet PO 200 mg BID SHRUTI Administration Ceftriaxone Sodium 1 gm/ 50 mls @ 100 mls/hr 11/20/20 16:00 11/21/20 17:48 Sodium Chloride IV Infused Q24H SHRUTI Infusion Methotrexate 20 mg 11/17/20 00:45 Methotrexate Sodium 2.5 Mg Tablet PO QWEEK [facility] Metoprolol Tartrate 25 mg 11/17/20 09:00 11/22/20 08:40 Metoprolol Tartrate 50 Mg Tablet PO 25 mg BID SHRUTI Administration Protocol Naloxone HCl 0.2 mg 11/21/20 16:37 Naloxone Hcl 0.4 Mg/Ml Vial IVPUSH Q2M PRN Excessive sedation or RR < 8 Non-Formulary Medication 1 tab 11/17/20 09:00 Ibrutinib [Imbruvica] PO DAILY [facility] Non-Formulary Medication 2 tab 11/17/20 09:00 Salsalate PO BID [facility] Omeprazole 20 mg 11/17/20 09:00 11/22/20 08:45 Omeprazole 20 Mg Capsule.Dr PO 20 mg DAILY [facility] Administration Senna 17.2 mg 11/21/20 16:37 Sennosides 8.6 Mg Tablet PO BEDTIME PRN Constipation Sodium Chloride 3 ml 11/17/20 08:00 11/22/20 08:46 0.9 % Sodium Chloride Flush 3 Ml Syringe IVFLUSH 3 ml QSHIFT [facility] Administration Sodium Chloride 3 ml 11/21/20 16:37 11/22/20 08:53 0.9 % Sodium Chloride Flush 3 Ml Syringe IVFLUSH Not Given QSHIFT [facility] Labs CBC & Chem 7: 11/21/20 06:12 11/21/20 06:12 Assessment and Plan (1) Closed hip fracture: Status: Acute Assessment and Plan: 79-year-old female with a past medical history of CLL, paroxysmal AFib, rheumatoid arthritis, recent diagnosis of UTI presented to the hospital with a chief complaint of fall and left hip pain noted to have left hip fracture. 1. L Hip fx secondary to mechanical fall s/p repair POD #1 monitor for post-op complications 2. Acute Resp. Failure with hypoxia secondary to HCAP (new R Sided infiltrates) continue rocephin, add doxycycline -- wbc slowly creeping up, will add doxycycline. If starts spiking fevers -- may need to broaden coverage; no sepsis at this time Rocephini day #3; Doxy day #1 3. E. Coli UTI rocephin, day #3 4. A. fib metoprolol resume Eliquis when okay with gen Surg. 5. RA plaquenil Full Code DVT pptx, Eliquis once okay with ortho
--- NOTE | 2020-11-22 13:24 | P.OP_ITS ---
Operative Note Operative Note Date of Service: 11/21/20 Narrative: Pre-op diagnosis: left femoral neck fracture Post-op diagnosis: same Procedure: left hip leanne Implants: harshad accolade2 #4 with +4 bipolar Surgeon: Luther Hoover MD Anesthesia: MAC and spinal Student Development Coordinator: Siri Velásquez Estimated blood loss (mL): 100 IV fluids (mL): 500 Pathology: other Condition: stable Disposition: PACU Procedure in detail: Patient was brought to the operative room placed in the lateral decubitus position. All bony prominences were well padded he was prepped and draped in standard sterile fashion. IV antibiotics per weight were administered and a time-out was called to identify proper site proper procedure proper surgeon. Radiographs were available and confirmed. I began by making a curvilinear incision over the posterolateral aspect of the greater trochanter. Dissection was taken down to the tensor fascia which was incised in line with the incision and a Charnley retractor was placed. The hip was internally rotated and the external rotators were identified. All vessels in the area were cauterized and a full-thickness capsular/external rotator layer was developed in a hockey-stick fashion starting just proximal to the piriformis. This layer was tagged and the displaced femoral neck fracture was identified. A clean-up cut was performed and the head was removed and measured on the back table. I then copiously irrigated the acetabulum and removed all bony fragments. Once this was done I used a cookie cutter to lateralize and a Charnley awl to identify the canal and then sequentially broached up to a #___4__. I then trialed with a standard head and a bipolar component matching the femoral head size. This dislocated at about 4o deg OF ABIR and so I trialed with a + 4 and she was stable to 70deg and difficult to dislocate in FADIR. I was happy with the range of motion and stability and length. Therefore I removed all instrumentation and copiously irrigated. I then placed my final implant and re-trialed. I was happiest with the ____+4____ implant and this was placed. Once this was done I closed the capsular layer with FiberWire and then performed a layered closure with luis miguel on skin. Patient was placed in sterile dressing extubated brought to recovery room in stable condition there were no known complications.
[2020-11-22] MEDS: Apixaban 5 MG TABLET PO ×2 (13:40→19:58)
[2020-11-22] MEDS: Doxycycline Hyclate 100 MG in 0.9 % Sodium Chloride 250 ML 166.67 MG IV (13:41)
--- NOTE | 2020-11-22 14:08 | HO.POSTANES ---
Post Anesthesia Evaluation Post Anesthesia Evaluation Vital Signs: Vital Signs Temp Pulse Resp BP Pulse Ox 11/22/20 11:36 97.5 F 79 20 122/45 L 92 11/22/20 09:02 96 118/57 L 11/22/20 08:40 96 118/57 L 11/22/20 07:33 97.3 F 94 18 133/59 L 90 L 11/22/20 04:00 19 95 11/22/20 03:50 97.7 F 78 19 129/69 96 Anesthesia: Spinal Mental Status: Awake Pain Control: Satisfactory Nausea/Vomiting: None Hydration: Adequate Anesthesia-Related Issues: No Anes. Related Issues
[2020-11-22] MEDS: cefTRIAXone sodium 1 GM in 0.9 % Sodium Chloride 50 ML IV (16:58)
[2020-11-23] VITALS (11 sets, daily range): BP systolic 117–162; BP diastolic 46–68; PULSE 81–106; RESP 16–20; TEMP 36.1–36.6; O2SAT 90–99
[2020-11-23] MEDS: Doxycycline Hyclate 100 MG in 0.9 % Sodium Chloride 250 ML 166.67 MG IV ×2 (00:11→13:05)
[2020-11-23] MEDS: HYDROmorphone HCl 0.5 MG/0.5 ML SYRINGE 0.25 MG IVPUSH ×2 (00:14→08:28)
[2020-11-23] MEDS: 0.9 % Sodium Chloride Flush 3 ML SYRINGE IVFLUSH ×8 (00:15→21:08)
[2020-11-23 06:11] LABS: MANUAL DIFF FLAG NO
[2020-11-23 06:37] LABS: Anion Gap 16 (12-20); Blood Urea Nitrogen 20 mg/dL (9-16); Calcium 8.3 mg/dL (8.4-10.2); Carbon Dioxide 23 mmol/L (22-29); Chloride 105 mmol/L (96-108); Creatinine Clr Calc Pharmacy 59.1; Estimated Glomerular Filt Rate > 60; Glucose Random 106 mg/dL (60-115); Potassium 3.3 mmol/L (3.3-5.1); Sodium 141 mmol/L (135-145)
[2020-11-23 06:59] LABS: Basophils Percent Auto 0.2 % (0-2); Eosinophils Percent Auto 0.1 % (0-4); Hematocrit 28.6 % (37-47); Hemoglobin 8.9 g/dl (12.0-16.0); Imm Gran Abs Auto 0.11 X10*3/uL (0.00-0.03); Imm Gran Pct Auto 0.7 % (0.0-0.4); Lymphocytes Absolute Auto 1.4 X10*3/uL (1.2-4.9); Lymphocytes Percent Auto 8.4 % (20-40); Mean Corpuscular HGB Conc 31.1 g/dl (31.0-35.0); Mean Corpuscular Hemoglobin 21.7 pg (27.0-33.0); Mean Corpuscular Volume 69.8 fL (80-98); Mean Platelet Volume 10.7 fL (9.4-12.3); Monocytes Absolute Auto 1.4 X10*3/uL (0.1-1.2); Monocytes Percent Auto 8.8 % (2-11); Neutrophils Absolute Auto 13.2 X10*3/uL (2.0-8.3); Neutrophils Percent Auto 81.8 % (45-73); Platelet Count 373 X10*3/uL (160-400); Red Cell Distribution Width 21.7 % (11.0-16.0); White Blood Count 16.2 X10*3/uL (4.8-10.8)
--- NOTE | 2020-11-23 08:18 | PM.PNORT ---
Subjective Subjective Date of Service: 11/23/20 Interval history: POD 2 s/p LT hip hemiarthroplasty No overnight events, resting in bed. States she had difficulty with getting out of bed yesterday. She feels pain and weakness with trying to lift the leg. Denies sob, cp, palpitations. Physical Exam Vital Signs: Vital Signs: Last Vital Signs Temp 97 F 11/23/20 07:38 Pulse 96 11/23/20 07:38 Resp 18 11/23/20 07:38 BP 143/60 H 11/23/20 07:38 Pulse Ox 90 L 11/23/20 07:38 Body Mass Index 23.3 Const: General: cooperative, healthy appearing and no acute distress Resp: Effort & Inspection: normal respiratory effort and able to speak in complete sentences Cardio: Rate: regular rate Peripheral pulses: Peripheral pulses 2+ throughout GI: Palpation (GI): Soft to palpation Skin: General skin exam: no rashes or lesions noted Extrem: Other: Left hip bandage clean dry and intact. No erythema or edema, diff with hip felxion. NVI. Progress Note: A&P Assessment and plan (1) Closed hip fracture: Status: Acute Assessment and Plan: Continue pain mgmnt cont lovenox-resume eliquis 48 hours post op continue PT/OT left hip hemiarthroplasty-post precautions Dispo planning-Pending med clearance and placement Fall Risk Details Current Medications: Current Medications Generic Name Dose Route Start Last Admin Trade Name Freq PRN Reason Stop Dose Admin Acetaminophen 650 mg 11/17/20 00:42 11/22/20 23:03 Acetaminophen 325 Mg Tablet PO 650 mg Q6H PRN Administration Pain, Mild (Pain Scale 1-3) Albuterol/Ipratropium 3 ml 11/20/20 14:37 Albuterol/Iprat 2.5/0.5mg 3 Ml Ampul.Neb INHALE RQ4H PRN sob Apixaban 5 mg 11/22/20 12:30 11/22/20 19:58 Apixaban 5 Mg Tablet PO 5 mg BID SHRUTI Administration Folic Acid 1 mg 11/17/20 09:00 11/22/20 08:37 Folic Acid 1 Mg Tablet PO 1 mg DAILY SHRUTI Administration Hydromorphone HCl 0.25 mg 11/21/20 16:37 11/23/20 00:14 Hydromorphone Hcl 0.5 Mg/0.5 Ml Syringe IVPUSH 0.25 mg Q4H PRN Administration Pain, Severe (Pain Scale 7-10) Hydroxychloroquine Sulfate 200 mg 11/17/20 09:00 11/22/20 19:59 Hydroxychloroquine Sulfate 200 Mg Tablet PO 200 mg BID SHRUTI Administration Ceftriaxone Sodium 1 gm/ 50 mls @ 100 mls/hr 11/20/20 16:00 11/22/20 18:13 Sodium Chloride IV Infused Q24H SHRUTI Infusion Doxycycline Hyclate 100 mg/ 250 mls @ 166.67 mls/hr 11/22/20 13:00 11/23/20 02:02 Sodium Chloride IV Infused Q12H SHRUTI Infusion Methotrexate 20 mg 11/17/20 00:45 Methotrexate Sodium 2.5 Mg Tablet PO QWEEK SHRUTI Metoprolol Tartrate 25 mg 11/17/20 09:00 11/22/20 19:59 Metoprolol Tartrate 50 Mg Tablet PO 25 mg BID SHRUTI Administration Protocol Naloxone HCl 0.2 mg 11/21/20 16:37 Naloxone Hcl 0.4 Mg/Ml Vial IVPUSH Q2M PRN Excessive sedation or RR < 8 Non-Formulary Medication 1 tab 11/17/20 09:00 Ibrutinib [Imbruvica] PO DAILY SHRUTI Non-Formulary Medication 2 tab 11/17/20 09:00 Salsalate PO BID SHRUTI Omeprazole 20 mg 11/17/20 09:00 11/22/20 08:45 Omeprazole 20 Mg Capsule.Dr PO 20 mg DAILY SHRUTI Administration Senna 17.2 mg 11/21/20 16:37 Sennosides 8.6 Mg Tablet PO BEDTIME PRN Constipation Sodium Chloride 3 ml 11/17/20 08:00 11/23/20 00:15 0.9 % Sodium Chloride Flush 3 Ml Syringe IVFLUSH 3 ml QSHIFT SHRUTI Administration Sodium Chloride 3 ml 11/21/20 16:37 11/23/20 00:15 0.9 % Sodium Chloride Flush 3 Ml Syringe IVFLUSH 3 ml QSHIFT SHRUTI Administration Time Spent With Patient Time: Total time spent is greater than 50% in coordination of care (as documented) at patient's floor/unit and/or counseling patient: Time with patient: less than 15 minutes
[2020-11-23] MEDS: Metoprolol Tartrate 50 MG TABLET 25 MG PO ×2 (08:26→21:01)
[2020-11-23] MEDS: Apixaban 5 MG TABLET PO ×2 (08:26→21:01)
[2020-11-23] MEDS: Folic Acid 1 MG TABLET PO (08:27)
[2020-11-23] MEDS: Hydroxychloroquine Sulfate 200 MG TABLET PO ×2 (08:28→21:01)
[2020-11-23] MEDS: Omeprazole 20 MG CAPSULE.DR PO (08:28)
[2020-11-23 11:35] LABS: Iron 13 mcg/dL (30-160); Percent Iron Saturation 6 % (15-50); Total Iron Binding Capacity 234 mcg/dL (228-428); Unsaturated Iron Binding 221 ug/dL
--- NOTE | 2020-11-23 11:42 | MHC.CM.PN ---
EMR reviewed, per hospitalist pt not discharging today due to worsening anemia. Ruth Pérez is following and has been updated.
--- NOTE | 2020-11-23 11:53 | MHC.CM.PN ---
CM RECEIVED PHONE CALL AT 11: 47AM FROM PT'S SON/ HCP ASKING IF PT WILL BE TRANSFERRED TO SNF TODAY. PER SON HE WILL BRING IN PT'S CANCER MEDICATION TOMORROW MORNING WHEN HE COMES TO VISIT, PT'S SON AWARE SHE WILL NOT TRANSFER TO [facility] TODAY.
[2020-11-23 11:55] LABS: Ferritin 250 ng/mL (10-250)
--- NOTE | 2020-11-23 13:06 | P.PNIM_ITS ---
Subjective Subjective Date of Service: 11/23/20 Interval History: Patient admits she is feeling better hip pain is also stable, denies shortness of breath but requirement of oxygen has increased now on 5 L of oxygen with finger oximetry 91%, WBC continue to trend up with history of CLL. General no headache no dizziness no fever chills. CVS no chest pain, no palpitation. Respiratory no cough, no shortness of breath Gastrointestinal no nausea, no vomiting, no abdominal pain Physical Exam Vital Signs: Vital Signs: Last Vital Signs Temp 97.6 F 11/23/20 12:00 Pulse 91 11/23/20 12:00 Resp 18 11/23/20 12:00 BP 138/68 11/23/20 12:00 Pulse Ox 91 L 11/23/20 12:41 Body Mass Index 23.3 General - no acute distress, appears comfortable answering questions appropriately. Cardiovascular - regular rate and rhythm, S1-S2 Lungs - diminised breath sounds at bases, no rales/rhonchi Abdomen - soft, nontender, no rebound or guarding Extremities - no edema bilaterally Neuro - awake and alert, no focal deficits Objective Data Current Medications Generic Name Dose Route Start Last Admin Trade Name Freq PRN Reason Stop Dose Admin Acetaminophen 650 mg 11/17/20 00:42 11/22/20 23:03 Acetaminophen 325 Mg Tablet PO 650 mg Q6H PRN Administration Pain, Mild (Pain Scale 1-3) Albuterol/Ipratropium 3 ml 11/20/20 14:37 Albuterol/Iprat 2.5/0.5mg 3 Ml Ampul.Neb INHALE RQ4H PRN sob Apixaban 5 mg 11/22/20 12:30 11/23/20 08:26 Apixaban 5 Mg Tablet PO 5 mg BID SHRUTI Administration Ferrous Sulfate 324 mg 11/23/20 17:00 Ferrous Sulfate 324 Mg Tablet. PO BIDWM SRHUTI Folic Acid 1 mg 11/17/20 09:00 11/23/20 08:27 Folic Acid 1 Mg Tablet PO 1 mg DAILY SHRUTI Administration Hydromorphone HCl 0.25 mg 11/21/20 16:37 11/23/20 08:28 Hydromorphone Hcl 0.5 Mg/0.5 Ml Syringe IVPUSH 0.25 mg Q4H PRN Administration Pain, Severe (Pain Scale 7-10) Hydroxychloroquine Sulfate 200 mg 11/17/20 09:00 11/23/20 08:28 Hydroxychloroquine Sulfate 200 Mg Tablet PO 200 mg BID SHRUTI Administration Ceftriaxone Sodium 1 gm/ 50 mls @ 100 mls/hr 11/20/20 16:00 11/22/20 18:13 Sodium Chloride IV Infused Q24H SHRUTI Infusion Doxycycline Hyclate 100 mg/ 250 mls @ 166.67 mls/hr 11/22/20 13:00 11/23/20 02:02 Sodium Chloride IV Infused Q12H SHRUTI Infusion Methotrexate 20 mg 11/17/20 00:45 Methotrexate Sodium 2.5 Mg Tablet PO QWEEK SHRUTI Metoprolol Tartrate 25 mg 11/17/20 09:00 11/23/20 08:26 Metoprolol Tartrate 50 Mg Tablet PO 25 mg BID [facility] Administration Protocol Naloxone HCl 0.2 mg 11/21/20 16:37 Naloxone Hcl 0.4 Mg/Ml Vial IVPUSH Q2M PRN Excessive sedation or RR < 8 Non-Formulary Medication 1 tab 11/17/20 09:00 Ibrutinib [Imbruvica] PO DAILY [facility] Non-Formulary Medication 2 tab 11/17/20 09:00 Salsalate PO BID SHRUTI Omeprazole 20 mg 11/17/20 09:00 11/23/20 08:28 Omeprazole 20 Mg Capsule.Dr PO 20 mg DAILY [facility] Administration Senna 17.2 mg 11/21/20 16:37 Sennosides 8.6 Mg Tablet PO BEDTIME PRN Constipation Sodium Chloride 3 ml 11/17/20 08:00 11/23/20 08:26 0.9 % Sodium Chloride Flush 3 Ml Syringe IVFLUSH 3 ml QSHIFT SHRUTI Administration Sodium Chloride 3 ml 11/21/20 16:37 11/23/20 08:26 0.9 % Sodium Chloride Flush 3 Ml Syringe IVFLUSH 3 ml QSHIFT SHRUTI Administration Labs CBC & Chem 7: 11/23/20 05:52 11/23/20 05:52 Assessment and Plan (1) Acute respiratory failure with hypoxia: Status: Acute (2) Closed hip fracture: Status: Acute (3) Iron deficiency anemia: Status: Acute Assessment and Plan: 79-year-old female with a past medical history of CLL, paroxysmal AFib, rheumatoid arthritis, recent diagnosis of UTI presented to the hospital with a chief complaint of fall and left hip pain noted to have left hip fracture. 1. L Hip fx secondary to mechanical fall s/p repair POD #2, good pain control, spoke with orthopedic PA surgical site looks fine with no hematoma Continue current Tylenol, IV Dilaudid, will add by mouth oxycodone 2. Acute Resp. Failure with hypoxia secondary to HCAP chest x-ray showed bilateral airspace disease probably representing pneumonia and loculated left pleural effusion continue rocephin, day 4 and doxycycline day 2, wbc gradually trending up , with worsening hypoxia, therefore case discussed with Dr. Arabella Brown she recommend CT chest,will check urine legionella AG, encourage incentive spirometry. 3. E. Coli UTI rocephin, day #4 4. A. fib Continue metoprolol, Eliquis started back on 11/22 was held on 11/17 for hip surgery resume Eliquis when okay with gen Surg. 5. Acute blood loss anemia/iron deficiency with low MCV Will place patient on iron supplement, due to acute infection will hold off on IV iron, since patient asymptomatic with no lightheadedness and dizziness will hold off on blood transfusion 6. RA cont. plaquenil Full Code DVT pptx, Eliquis once okay with ortho
--- NOTE | 2020-11-23 13:38 | W.PM.IDCN ---
History of Present Illness Data of Consult Service Date: 11/23/20 Requesting physician: Oswald Lara Primary Care Provider: Unknown Physician HPI Reason for consult: hypoxia She presents to ER after fall and hip fracture. She has seen Orthopedics for repair and subsequently has developed hypoxia and oxygen dependency She has CLL and has chronic leukocytosis She has 5 liters oxygen requirement to maintain sat 94% She has dark urine in Ji She has no fever or productive sputum AP film reveals left basilar blunting and airspace disease Review of Systems Review of Systems: Yes all other systems are reviewed and are negative [facility] Past Medical History Medical History (Updated 11/27/20 @ 17:20 by Ellis Medina MD) CLL (chronic lymphocytic leukemia) Empyema lung Paroxysmal A-fib Rheumatoid arthritis Family History Family history: reviewed and not pertinent Social History Social History Household Members: None Housing: House Alcohol intake: never Smoking Status: Never smoker service: No Current occupational status: retired Meds Allergies Allergy/AdvReac Type Severity Reaction Status Date / Time crab AdvReac Intermediate NAUSEA & Verified 11/16/20 21:07 VOMITING crab Allergy Intermediate vomiting Uncoded 11/16/20 21:07 Active Medications: Current Medications Generic Name Dose Route Start Last Admin Trade Name Freq PRN Reason Stop Dose Admin Acetaminophen 650 mg 11/17/20 00:42 11/22/20 23:03 Acetaminophen 325 Mg Tablet PO 650 mg Q6H PRN Administration Pain, Mild (Pain Scale 1-3) Albuterol/Ipratropium 3 ml 11/20/20 14:37 Albuterol/Iprat 2.5/0.5mg 3 Ml Ampul.Neb INHALE RQ4H PRN sob Apixaban 5 mg 11/22/20 12:30 11/23/20 08:26 Apixaban 5 Mg Tablet PO 5 mg BID SHRUTI Administration Ferrous Sulfate 324 mg 11/23/20 17:00 Ferrous Sulfate 324 Mg Tablet. PO BIDWM SHRUTI Folic Acid 1 mg 11/17/20 09:00 11/23/20 08:27 Folic Acid 1 Mg Tablet PO 1 mg DAILY SHRUTI Administration Hydromorphone HCl 0.25 mg 11/21/20 16:37 11/23/20 08:28 Hydromorphone Hcl 0.5 Mg/0.5 Ml Syringe IVPUSH 0.25 mg Q4H PRN Administration Pain, Severe (Pain Scale 7-10) Hydroxychloroquine Sulfate 200 mg 11/17/20 09:00 11/23/20 08:28 Hydroxychloroquine Sulfate 200 Mg Tablet PO 200 mg BID SHRUTI Administration Ceftriaxone Sodium 1 gm/ 50 mls @ 100 mls/hr 11/20/20 16:00 11/22/20 18:13 Sodium Chloride IV Infused Q24H SHRUTI Infusion Doxycycline Hyclate 100 mg/ 250 mls @ 166.67 mls/hr 11/22/20 13:00 11/23/20 13:05 Sodium Chloride IV 166.67 mls/hr Q12H SHRUTI Administration Methotrexate 20 mg 11/17/20 00:45 Methotrexate Sodium 2.5 Mg Tablet PO QWEEK [facility] Metoprolol Tartrate 25 mg 11/17/20 09:00 11/23/20 08:26 Metoprolol Tartrate 50 Mg Tablet PO 25 mg BID [facility] Administration Protocol Naloxone HCl 0.2 mg 11/21/20 16:37 Naloxone Hcl 0.4 Mg/Ml Vial IVPUSH Q2M PRN Excessive sedation or RR < 8 Non-Formulary Medication 1 tab 11/17/20 09:00 Ibrutinib [Imbruvica] PO DAILY [facility] [place] Non-Formulary Medication 2 tab 11/17/20 09:00 Salsalate PO BID [facility] [place] Omeprazole 20 mg 11/17/20 09:00 11/23/20 08:28 Omeprazole 20 Mg Capsule.Dr PO 20 mg DAILY [facility] Administration Oxycodone HCl 5 mg 11/23/20 13:26 Oxycodone Hcl Immed Release 5 Mg Tablet PO Q6H PRN Pain, Moderate (Pain Scale 4-6 Senna 17.2 mg 11/21/20 16:37 Sennosides 8.6 Mg Tablet PO BEDTIME PRN Constipation Sodium Chloride 3 ml 11/17/20 08:00 11/23/20 08:26 0.9 % Sodium Chloride Flush 3 Ml Syringe IVFLUSH 3 ml QSHIFT [facility] Administration Sodium Chloride 3 ml 11/21/20 16:37 11/23/20 08:26 0.9 % Sodium Chloride Flush 3 Ml Syringe IVFLUSH 3 ml QSHIFT [facility] Administration Home Medications Medication Instructions Recorded Confirmed Last Taken Type apixaban [Eliquis] 1 tab PO BID 11/16/20 11/16/20 Unknown History folic acid 1 tab PO DAILY 11/16/20 11/16/20 Unknown History furosemide 1 tab PO DAILY 11/16/20 11/16/20 Unknown History hydroxychloroquine 1 tab PO BID 11/16/20 11/16/20 Unknown History ibrutinib [Imbruvica] 1 tab PO DAILY 11/16/20 11/16/20 Unknown History methotrexate sodium 8 tab PO QWEEK 11/16/20 11/16/20 Unknown History metoprolol tartrate 0.5 tab PO BID 11/16/20 11/16/20 Unknown History pantoprazole 1 tab PO DAILY 11/16/20 11/16/20 Unknown History salsalate 2 tab PO BID 11/16/20 11/16/20 Unknown History Physical Exam Vital Signs: Vital Signs: Last Vital Signs Temp 97.6 F 11/23/20 12:00 Pulse 91 11/23/20 12:00 Resp 18 11/23/20 12:00 BP 138/68 11/23/20 12:00 Pulse Ox 91 L 11/23/20 12:41 Body Mass Index 23.3 Const: General: cooperative Orientation/consciousness: patient oriented x3 HENMT: Head: Yes normal to inspection Mouth: Normal oral and palatal mucosa present Resp: Auscultation: diminished lung sounds Cardio: Rate: regular rate Rhythm: regular rhythm GI: Palpation (GI): Soft to palpation and nontender : General: Yes no CVA tenderness Back/Spine/Pelvis: Back: no CVA tenderness Skin: General skin exam: no rashes or lesions noted Neuro: General: patient oriented x3 Extrem: General: Yes edema and Yes pedal edema Results Labs CBC & Chem 7: 11/27/20 08:24 11/27/20 08:24 Labs: Short CBC 11/23/20 Range/Units 05:52 WBC 16.2 H (4.8-10.8) X10*3/uL Hgb 8.9 L (12.0-16.0) g/dl Hct 28.6 L (37-47) % Plt Count 373 (160-400) X10*3/uL BMP 11/23/20 05:52 Sodium 141 Potassium 3.3 Chloride 105 Carbon Dioxide 23 BUN 20 H Creatinine 0.59 Calcium 8.3 L Assessment and Plan (1) Acute respiratory failure with hypoxia: Status: Acute Check CT of chest and drain pleural fluid if moderate or large Continue Ceftriaxone and Doxycycline for total 7 days for now,po when improved Would check procalcitonin see if infection Would check Legionella antigen
[2020-11-23] MEDS: Potassium Chloride Packet 20 MEQ PACKET PO (14:11)
[2020-11-23] MEDS: oxyCODONE HCl Immed Release 5 MG TABLET PO (14:11)
[2020-11-23 15:39] LABS: Procalcitonin 0.17 ng/mL
[2020-11-23] MEDS: cefTRIAXone sodium 1 GM in 0.9 % Sodium Chloride 50 ML IV (16:12)
--- NOTE | 2020-11-23 18:54 | PM.EVENT ---
Event Note Date of Service: 11/23/20 Event Note: CT chest done earlier show loculated P. effusion..She will lkikely need CT surgery, will inform coverage in the morning.
[2020-11-24] VITALS (9 sets, daily range): BP systolic 145–170; BP diastolic 49–85; PULSE 8–105; RESP 18–26; TEMP 36–36.6; O2SAT 88–95
[2020-11-24] MEDS: Doxycycline Hyclate 100 MG in 0.9 % Sodium Chloride 250 ML 166.67 MG IV ×2 (01:28→14:30)
[2020-11-24] MEDS: oxyCODONE HCl Immed Release 5 MG TABLET PO ×2 (04:12→20:05)
[2020-11-24 07:23] LABS: Basophils Percent Auto 0.2 % (0-2); Eosinophils Percent Auto 0.1 % (0-4); Hematocrit 32.1 % (37-47); Hemoglobin 9.6 g/dl (12.0-16.0); Imm Gran Abs Auto 0.15 X10*3/uL (0.00-0.03); Imm Gran Pct Auto 0.8 % (0.0-0.4); Lymphocytes Absolute Auto 1.8 X10*3/uL (1.2-4.9); Lymphocytes Percent Auto 9.2 % (20-40); MANUAL DIFF FLAG SCAN; Mean Corpuscular HGB Conc 29.9 g/dl (31.0-35.0); Mean Corpuscular Hemoglobin 21.3 pg (27.0-33.0); Mean Corpuscular Volume 71.2 fL (80-98); Mean Platelet Volume 10.3 fL (9.4-12.3); Monocytes Absolute Auto 1.7 X10*3/uL (0.1-1.2); Monocytes Percent Auto 8.7 % (2-11); Neutrophils Absolute Auto 15.7 X10*3/uL (2.0-8.3); Platelet Count 427 X10*3/uL (160-400); Red Blood Count 4.51 X10*6/uL (4.20-5.50); Red Cell Distribution Width 22.2 % (11.0-16.0); SCAN SMEAR FLAG 1; White Blood Count 19.4 X10*3/uL (4.8-10.8)
[2020-11-24 07:53] LABS: Anion Gap 18 (12-20); Blood Urea Nitrogen 17 mg/dL (9-16); Calcium 8.5 mg/dL (8.4-10.2); Carbon Dioxide 20 mmol/L (22-29); Chloride 108 mmol/L (96-108); Creatinine Clr Calc Pharmacy 64.6; Estimated Glomerular Filt Rate > 60; Glucose Random 91 mg/dL (60-115); Potassium 3.8 mmol/L (3.3-5.1); Sodium 142 mmol/L (135-145)
[2020-11-24 07:54] LABS: SLIDE REVIEW VERIFIED
--- NOTE | 2020-11-24 08:28 | PM.PNORT ---
Subjective Subjective Date of Service: 11/24/20 Interval history: POD3 s/p lt hip leanne. Patient is resting comfortably in bed. Pain is well managed. No overnight events. Physical Exam Vital Signs: Vital Signs: Last Vital Signs Temp 97.0 F 11/24/20 07:34 Pulse 90 11/24/20 07:34 Resp 26 H 11/24/20 07:34 BP 148/49 H 11/24/20 07:34 Pulse Ox 94 11/24/20 07:34 Body Mass Index 23.3 Const: General: cooperative, healthy appearing and no acute distress Resp: Effort & Inspection: normal respiratory effort and able to speak in complete sentences Cardio: Rate: regular rate Peripheral pulses: Peripheral pulses 2+ throughout GI: Palpation (GI): Soft to palpation Skin: Lesions: no lesions Rashes: no rashes Extrem: Other: left hip no ecchymosis, redness, or drainage. Aquacel is clean, dry, and intact. NVI. Progress Note: A&P Assessment and plan (1) Closed hip fracture: Status: Acute Assessment and Plan: Continue pain mgmnt Continue Eliquis for dvt ppx continue PT for left hip hemiarthoplasty Dispo planning-Pending PT eval, pain mgmnt Fall Risk Details Current Medications: Current Medications Generic Name Dose Route Start Last Admin Trade Name Freq PRN Reason Stop Dose Admin Acetaminophen 650 mg 11/17/20 00:42 11/22/20 23:03 Acetaminophen 325 Mg Tablet PO 650 mg Q6H PRN Administration Pain, Mild (Pain Scale 1-3) Albuterol/Ipratropium 3 ml 11/20/20 14:37 Albuterol/Iprat 2.5/0.5mg 3 Ml Ampul.Neb INHALE RQ4H PRN sob Apixaban 5 mg 11/22/20 12:30 11/23/20 21:01 Apixaban 5 Mg Tablet PO 5 mg BID SHRUTI Administration Ferrous Sulfate 324 mg 11/23/20 17:00 11/23/20 16:16 Ferrous Sulfate 324 Mg Tablet. PO Not Given BIDWM SHRUTI Folic Acid 1 mg 11/17/20 09:00 11/23/20 08:27 Folic Acid 1 Mg Tablet PO 1 mg DAILY SHRUTI Administration Hydromorphone HCl 0.25 mg 11/21/20 16:37 11/23/20 08:28 Hydromorphone Hcl 0.5 Mg/0.5 Ml Syringe IVPUSH 0.25 mg Q4H PRN Administration Pain, Severe (Pain Scale 7-10) Hydroxychloroquine Sulfate 200 mg 11/17/20 09:00 11/23/20 21:01 Hydroxychloroquine Sulfate 200 Mg Tablet PO 200 mg BID SHRUTI Administration Ceftriaxone Sodium 1 gm/ 50 mls @ 100 mls/hr 11/20/20 16:00 11/23/20 17:41 Sodium Chloride IV Infused Q24H SHRUTI Infusion Doxycycline Hyclate 100 mg/ 250 mls @ 166.67 mls/hr 11/22/20 13:00 11/24/20 03:47 Sodium Chloride IV Infused Q12H SHRUTI Infusion Methotrexate 20 mg 11/17/20 00:45 Methotrexate Sodium 2.5 Mg Tablet PO QWEEK [facility] Metoprolol Tartrate 25 mg 11/17/20 09:00 11/23/20 21:01 Metoprolol Tartrate 50 Mg Tablet PO 25 mg BID [facility] Administration Protocol Naloxone HCl 0.2 mg 11/21/20 16:37 Naloxone Hcl 0.4 Mg/Ml Vial IVPUSH Q2M PRN Excessive sedation or RR < 8 Non-Formulary Medication 1 tab 11/17/20 09:00 Ibrutinib [Imbruvica] PO DAILY [facility] Non-Formulary Medication 2 tab 11/17/20 09:00 Salsalate PO BID [facility] Omeprazole 20 mg 11/17/20 09:00 11/23/20 08:28 Omeprazole 20 Mg Capsule.Dr PO 20 mg DAILY SHRUTI Administration Oxycodone HCl 5 mg 11/23/20 13:26 11/24/20 04:12 Oxycodone Hcl Immed Release 5 Mg Tablet PO 5 mg Q6H PRN Administration Pain, Moderate (Pain Scale 4-6 Senna 17.2 mg 11/21/20 16:37 Sennosides 8.6 Mg Tablet PO BEDTIME PRN Constipation Sodium Chloride 3 ml 11/17/20 08:00 11/23/20 21:07 0.9 % Sodium Chloride Flush 3 Ml Syringe IVFLUSH 3 ml QSHIFT SHRUTI Administration Sodium Chloride 3 ml 11/21/20 16:37 11/23/20 21:08 0.9 % Sodium Chloride Flush 3 Ml Syringe IVFLUSH 3 ml QSHIFT SHRUTI Administration Time Spent With Patient Time: Total time spent is greater than 50% in coordination of care (as documented) at patient's floor/unit and/or counseling patient: Time with patient: less than 15 minutes
--- NOTE | 2020-11-24 08:34 | HO.PM.IMPN ---
Subjective Subjective Date of Service: 11/24/20 Interval History: Seen in f/u for Hip fracture, PNA, loculated P. effusion. She is feeling better,hip pain is stable, denies shortness of breath but requirement of oxygen has stable at now on 5 L of oxygen with finger oximetry 95%, WBC continue to trend up with history of CLL but probably infectious component Review of Systems Gen: no fever Resp: + sob, no cough CV: no chest, no LANDA, no leg edema GI: No n/v, no abd pain Neuro: No confusion MuskS:pain in the hip with movment Physical Exam Vital Signs: Vital Signs: Last Vital Signs Temp 97.0 F 11/24/20 07:34 Pulse 90 11/24/20 07:34 Resp 26 H 11/24/20 07:34 BP 148/49 H 11/24/20 07:34 Pulse Ox 95 11/24/20 08:33 Body Mass Index 23.3 General - no acute distress, appears comfortable answering questions appropriately. Cardiovascular - regular rate and rhythm, S1-S2 Lungs - diminised breath sounds at bases, rales/rhonchi at left base Abdomen - soft, nontender, no rebound or guarding Extremities - no edema bilaterally Skin surgery site dry clean intact Neuro - awake and alert, no focal deficits Objective Data Current Medications Generic Name Dose Route Start Last Admin Trade Name Paulq PRN Reason Stop Dose Admin Acetaminophen 650 mg 11/17/20 00:42 11/22/20 23:03 Acetaminophen 325 Mg Tablet PO 650 mg Q6H PRN Administration Pain, Mild (Pain Scale 1-3) Albuterol/Ipratropium 3 ml 11/20/20 14:37 Albuterol/Iprat 2.5/0.5mg 3 Ml Ampul.Neb INHALE RQ4H PRN sob Apixaban 5 mg 11/22/20 12:30 11/23/20 21:01 Apixaban 5 Mg Tablet PO 5 mg BID SHRUTI Administration Ferrous Sulfate 324 mg 11/23/20 17:00 11/23/20 16:16 Ferrous Sulfate 324 Mg Tablet. PO Not Given BIDWM SHRUTI Folic Acid 1 mg 11/17/20 09:00 11/23/20 08:27 Folic Acid 1 Mg Tablet PO 1 mg DAILY SHRUTI Administration Hydromorphone HCl 0.25 mg 11/21/20 16:37 11/23/20 08:28 Hydromorphone Hcl 0.5 Mg/0.5 Ml Syringe IVPUSH 0.25 mg Q4H PRN Administration Pain, Severe (Pain Scale 7-10) Hydroxychloroquine Sulfate 200 mg 11/17/20 09:00 11/23/20 21:01 Hydroxychloroquine Sulfate 200 Mg Tablet PO 200 mg BID SHRUTI Administration Ceftriaxone Sodium 1 gm/ 50 mls @ 100 mls/hr 11/20/20 16:00 11/23/20 17:41 Sodium Chloride IV Infused Q24H SHRUTI Infusion Doxycycline Hyclate 100 mg/ 250 mls @ 166.67 mls/hr 11/22/20 13:00 11/24/20 03:47 Sodium Chloride IV Infused Q12H [facility] Infusion Methotrexate 20 mg 11/17/20 00:45 Methotrexate Sodium 2.5 Mg Tablet PO QWEEK [facility] Metoprolol Tartrate 25 mg 11/17/20 09:00 11/23/20 21:01 Metoprolol Tartrate 50 Mg Tablet PO 25 mg BID [facility] Administration Protocol Naloxone HCl 0.2 mg 11/21/20 16:37 Naloxone Hcl 0.4 Mg/Ml Vial IVPUSH Q2M PRN Excessive sedation or RR < 8 Non-Formulary Medication 1 tab 11/17/20 09:00 Ibrutinib [Imbruvica] PO DAILY [facility] Non-Formulary Medication 2 tab 11/17/20 09:00 Salsalate PO BID [facility] Omeprazole 20 mg 11/17/20 09:00 11/23/20 08:28 Omeprazole 20 Mg Capsule.Dr PO 20 mg DAILY [facility] Administration Oxycodone HCl 5 mg 11/23/20 13:26 11/24/20 04:12 Oxycodone Hcl Immed Release 5 Mg Tablet PO 5 mg Q6H PRN Administration Pain, Moderate (Pain Scale 4-6 Senna 17.2 mg 11/21/20 16:37 Sennosides 8.6 Mg Tablet PO BEDTIME PRN Constipation Sodium Chloride 3 ml 11/17/20 08:00 11/23/20 21:07 0.9 % Sodium Chloride Flush 3 Ml Syringe IVFLUSH 3 ml QSHIFT [facility] Administration Sodium Chloride 3 ml 11/21/20 16:37 11/23/20 21:08 0.9 % Sodium Chloride Flush 3 Ml Syringe IVFLUSH 3 ml QSHIFT [facility] Administration Labs CBC & Chem 7: 11/24/20 07:06 11/24/20 07:06 Assessment and Plan (1) Acute respiratory failure with hypoxia: Status: Acute (2) Closed hip fracture: Status: Acute (3) Iron deficiency anemia: Status: Acute Assessment and Plan: 79-year-old female with a past medical history of CLL, paroxysmal AFib, rheumatoid arthritis, recent diagnosis of UTI presented to the hospital with a chief complaint of fall and left hip pain noted to have left hip fracture. 1. L Hip fx secondary to mechanical fall s/p repair POD #3, good pain control APAP, Dilaud, oxycodone for pain PT 2. Acute Resp. Failure with hypoxia secondary to HCAP chest x-ray showed bilateral airspace disease probably representing pneumonia and loculated left pleural effusion--also noted on CT of 11/23 and associated diffuse PNA continue rocephin, day 5 and doxycycline day 3, wbc gradually trending up. ID following. CT surgery consulted for loculated effusion. 3. E. Coli UTI rocephin, day #5 4. A. fib Continue metoprolol, -Hold Eliquis started back on 11/22 (in case she will need surgery for loculated effusion) 5. Acute blood loss anemia/iron deficiency with low MCV, continue Iron, no indication for transfusion at this time, follow H/H 6. RA--cont. plaquenil 7. Leukocytosis--likely from infection ( loculated effusion) Full Code DVT pptx, Lovenox while off Eliquis Code status should be readdressed
[2020-11-24] MEDS: Albuterol/Iprat 2.5/0.5MG 3 ML AMPUL.NEB INHALE (10:30)
[2020-11-24] MEDS: Ferrous Sulfate 324 MG TABLET.DR PO ×2 (10:33→16:55)
[2020-11-24] MEDS: Omeprazole 20 MG CAPSULE.DR PO (10:33)
[2020-11-24] MEDS: Folic Acid 1 MG TABLET PO (10:34)
[2020-11-24] MEDS: Hydroxychloroquine Sulfate 200 MG TABLET PO ×2 (10:34→20:04)
[2020-11-24] MEDS: Metoprolol Tartrate 50 MG TABLET 25 MG PO ×2 (10:39→20:04)
[2020-11-24] MEDS: 0.9 % Sodium Chloride Flush 3 ML SYRINGE IVFLUSH (10:40)
[2020-11-24] MEDS: cefTRIAXone sodium 1 GM in 0.9 % Sodium Chloride 50 ML IV (16:16)
--- NOTE | 2020-11-24 18:33 | PC.NURSE ---
Patient with increased WOB this AM; hospitalist to bedside. Coarse crackles auscultated throughout, + 1 edema to lower extremities. On oximizer 5 L. Breathing treatment received, some improvement.
[2020-11-25] VITALS (10 sets, daily range): BP systolic 107–147; BP diastolic 44–60; PULSE 69–97; RESP 18–32; TEMP 36.1–36.9; O2SAT 10–93
[2020-11-25] MEDS: Acetaminophen 325 MG TABLET 650 MG PO (00:02)
[2020-11-25] MEDS: 0.9 % Sodium Chloride Flush 3 ML SYRINGE IVFLUSH ×5 (00:04→17:42)
[2020-11-25] MEDS: Furosemide 40 MG/4 ML VIAL IVPUSH (01:42)
[2020-11-25] MEDS: Morphine Sulfate 4 MG/ML CARTRIDGE IVPUSH (01:45)
[2020-11-25 07:16] LABS: Basophils Percent Auto 0.2 % (0-2); Hematocrit 30.9 % (37-47); Hemoglobin 9.4 g/dl (12.0-16.0); Imm Gran Abs Auto 0.19 X10*3/uL (0.00-0.03); Imm Gran Pct Auto 0.9 % (0.0-0.4); Lymphocytes Absolute Auto 1.4 X10*3/uL (1.2-4.9); Lymphocytes Percent Auto 6.3 % (20-40); MANUAL DIFF FLAG SCAN; Mean Corpuscular HGB Conc 30.4 g/dl (31.0-35.0); Mean Corpuscular Hemoglobin 21.7 pg (27.0-33.0); Mean Corpuscular Volume 71.4 fL (80-98); Mean Platelet Volume 10.3 fL (9.4-12.3); Monocytes Absolute Auto 1.6 X10*3/uL (0.1-1.2); Monocytes Percent Auto 7.4 % (2-11); NRBC Pct Auto 0.1 /100WBC (0.0-0.2); Neutrophils Absolute Auto 18.6 X10*3/uL (2.0-8.3); Neutrophils Percent Auto 85.2 % (45-73); Platelet Count 527 X10*3/uL (160-400); Red Blood Count 4.33 X10*6/uL (4.20-5.50); Red Cell Distribution Width 22.7 % (11.0-16.0); SCAN SMEAR FLAG 1; White Blood Count 21.8 X10*3/uL (4.8-10.8)
[2020-11-25 07:33] LABS: Anion Gap 16 (12-20); Blood Urea Nitrogen 18 mg/dL (9-16); Calcium 8.6 mg/dL (8.4-10.2); Carbon Dioxide 26 mmol/L (22-29); Chloride 110 mmol/L (96-108); Creatinine Clr Calc Pharmacy 62.3; Estimated Glomerular Filt Rate > 60; Glucose Random 102 mg/dL (60-115); Potassium 4.4 mmol/L (3.3-5.1); Sodium 148 mmol/L (135-145)
--- NOTE | 2020-11-25 07:49 | MHC.PIE ---
late entry for 0130 p - pt on entry to room was tachypneic @ [id number] & dyspneic - unable to speak except in single words. admits to trouble breathing. sat 89-90% on 5L oximizer i- call placed to Dr. Muñiz & updated on pt's resp distress & coarse crackles t.o. L > R e - orders received. Morphine given iv and lasix 40mg iv given & stat pcxr done as ordered. pt diuresed 900ml of urine in f/c & resps decreased to 22, pt reports improvement in breathing
[2020-11-25 07:58] LABS: SLIDE REVIEW VERIFIED
--- NOTE | 2020-11-25 09:10 | P.PNOP_ITS ---
Subjective Subjective Date of Service: 11/25/20 Interval history: POD4 s/p left hip hemiarthroplasty. Patient;'s pain is well managed. She is resting comfortably in bed. No overnight events. Physical Exam Vital Signs: Vital Signs: Last Vital Signs Temp 97.0 F 11/25/20 08:00 Pulse 91 11/25/20 08:00 Resp 19 11/25/20 08:00 BP 107/50 L 11/25/20 08:00 Pulse Ox 90 L 11/25/20 08:00 Body Mass Index 23.3 Const: General: cooperative, healthy appearing and no acute distress Resp: Effort & Inspection: normal respiratory effort and able to speak in complete sentences Cardio: Rate: regular rate Peripheral pulses: Peripheral pulses 2+ throughout GI: Palpation (GI): Soft to palpation Skin: Lesions: no lesions Rashes: no rashes Extrem: Other: Left hip no redness, drainage, or edema. Aquacel is clean, dry, and intact. NVI Progress Note: A&P Assessment and plan (1) Closed hip fracture: Status: Acute Assessment and Plan: Continue pain mgmnt Continue Eliquis for dvt ppx Continue PT for left hip hemiarthroplasty Dispo planning-Pending PT eval, pain mgmnt Fall Risk Details Current Medications: Current Medications Generic Name Dose Route Start Last Admin Trade Name Paulq PRN Reason Stop Dose Admin Acetaminophen 650 mg 11/17/20 00:42 11/25/20 00:02 Acetaminophen 325 Mg Tablet PO 650 mg Q6H PRN Administration Pain, Mild (Pain Scale 1-3) Albuterol/Ipratropium 3 ml 11/20/20 14:37 11/24/20 10:30 Albuterol/Iprat 2.5/0.5mg 3 Ml Ampul.Neb INHALE 3 ml RQ4H PRN Administration sob Ferrous Sulfate 324 mg 11/23/20 17:00 11/24/20 16:55 Ferrous Sulfate 324 Mg Tablet. PO 324 mg BIDWM SHRUTI Administration Folic Acid 1 mg 11/17/20 09:00 11/24/20 10:34 Folic Acid 1 Mg Tablet PO 1 mg DAILY SHRUTI Administration Hydromorphone HCl 0.25 mg 11/21/20 16:37 11/23/20 08:28 Hydromorphone Hcl 0.5 Mg/0.5 Ml Syringe IVPUSH 0.25 mg Q4H PRN Administration Pain, Severe (Pain Scale 7-10) Hydroxychloroquine Sulfate 200 mg 11/17/20 09:00 11/24/20 20:04 Hydroxychloroquine Sulfate 200 Mg Tablet PO 200 mg BID SHRUTI Administration Ceftriaxone Sodium 1 gm/ 50 mls @ 100 mls/hr 11/20/20 16:00 11/24/20 17:07 Sodium Chloride IV Infused Q24H SHRUTI Infusion Doxycycline Hyclate 100 mg/ 250 mls @ 166.67 mls/hr 11/22/20 13:00 11/25/20 01:30 Sodium Chloride IV Infused Q12H SHRUTI Infusion Methotrexate 20 mg 11/17/20 00:45 Methotrexate Sodium 2.5 Mg Tablet PO QWEEK [facility] Metoprolol Tartrate 25 mg 11/17/20 09:00 11/24/20 20:04 Metoprolol Tartrate 50 Mg Tablet PO 25 mg BID SHRUTI Administration Protocol Naloxone HCl 0.2 mg 11/21/20 16:37 Naloxone Hcl 0.4 Mg/Ml Vial IVPUSH Q2M PRN Excessive sedation or RR < 8 Non-Formulary Medication 1 tab 11/17/20 09:00 Ibrutinib [Imbruvica] PO DAILY [facility] Non-Formulary Medication 2 tab 11/17/20 09:00 Salsalate PO BID [facility] Omeprazole 20 mg 11/17/20 09:00 11/24/20 10:33 Omeprazole 20 Mg Capsule.Dr PO 20 mg DAILY SHRUTI Administration Oxycodone HCl 5 mg 11/23/20 13:26 11/24/20 20:05 Oxycodone Hcl Immed Release 5 Mg Tablet PO 5 mg Q6H PRN Administration Pain, Moderate (Pain Scale 4-6 Senna 17.2 mg 11/21/20 16:37 Sennosides 8.6 Mg Tablet PO BEDTIME PRN Constipation Sodium Chloride 3 ml 11/17/20 08:00 11/25/20 00:04 0.9 % Sodium Chloride Flush 3 Ml Syringe IVFLUSH 3 ml QSHIFT SHRUTI Administration Sodium Chloride 3 ml 11/21/20 16:37 11/25/20 00:05 0.9 % Sodium Chloride Flush 3 Ml Syringe IVFLUSH 3 ml QSHIFT SHRUTI Administration Time Spent With Patient Time: Total time spent is greater than 50% in coordination of care (as documented) at patient's floor/unit and/or counseling patient: Time with patient: less than 15 minutes
[2020-11-25] MEDS: Metoprolol Tartrate 50 MG TABLET 25 MG PO ×2 (10:38→21:01)
[2020-11-25] MEDS: Omeprazole 20 MG CAPSULE.DR PO (10:39)
[2020-11-25] MEDS: Ferrous Sulfate 324 MG TABLET.DR PO (10:39)
[2020-11-25] MEDS: Folic Acid 1 MG TABLET PO (10:39)
[2020-11-25] MEDS: Hydroxychloroquine Sulfate 200 MG TABLET PO ×2 (10:39→21:02)
[2020-11-25] MEDS: Piperacillin Sodium/Tazobactam 3.375 GM in 0.9 % Sodium Chloride 50 ML IV ×2 (12:43→17:43)
[2020-11-25] MEDS: Doxycycline Hyclate 100 MG in 0.9 % Sodium Chloride 250 ML 166.67 MG IV ×2 (13:58)
--- NOTE | 2020-11-25 14:06 | P.CONGS_ITS ---
History of Present Illness Consult details Consult date: 11/25/20 Reason for consult: other Requesting physician: Yovani Cooper Narrative: Patient is 79-year-old female a past medical history of CLL, proximal atrial fibrillation with home use of Eliquis which is currently on hold, rheumatoid arthritis for which she is on methotrexate, presented to [facility] with chief complaint of fall and left hip pain, noted to have a left hip fracture is now POD#4 S/P left femoral head arthroplasty. Patient subsequently developed respiratory failure with hypoxia secondary to HCAP. A chest CT performed on 11/23/2020 shows diffuse ground-glass opacifications throughout the right upper and right lower lobes. Diffuse ground-glass op acities noted throughout the left upper lobe and a large loculated left pleural effusion for which thoracic surgery was consulted for. Patient found to have leukocytosis WBC 21 is currently on Doxy and Zosyn. During my examination with the patient today she informs me that she had a loculated pleural effusion on the left side in the past, approximately 3 years ago required intervention performed by Dr. Cabrera. Patient is unsure of the procedure but believes it was a chest tube. Unfortunately I do not have access to these records at this time. Patient states that while at rest she does not have any increased shortness of breath however has not been ambulating since her left femoral head arthroplasty. She is currently on 5 L Oxymizer pendant with oxygen saturations 92%. She denies any fever, chills, cough states that her only complaint at this moment is that she is unable to eat due to a sore throat. At this time patient does not appear to be in any severe respiratory distress, displays mild increased work of breathing currently speaking in 3-4 word sentences. Review of Systems Constitutional: Constitutional: Denies body ache(s), Denies chills, Reports daytime sleepiness, Denies fever(s) and Reports weakness Eyes: Eyes: Denies blurry vision and Denies change in vision ENT: Denies vertigo, Reports odynophagia and Reports sore throat Cardiovascular: Cardiovascular: Denies chest pain Respiratory: Respiratory: Denies hemoptysis and Denies pain with cough Gastrointestinal: Gastrointestinal: Denies abdominal pain, Denies constipation, Denies diarrhea and Reports odynophagia Musculoskeletal: Musculoskeletal: Denies numbness Neurologic: Denies vertigo, Denies numbness, Denies paresthesias and Reports weakness PMFSH Past Medical History Medical History CLL (chronic lymphocytic leukemia) Empyema lung Paroxysmal A-fib Rheumatoid arthritis Family History Family history: reviewed and not pertinent Social History Social History Household Members: None Housing: House Housing Other:: Uses walker Do you presently have visiting nurse or other home services: Yes ([employer]) Alcohol intake: never Smoking Status: Never smoker Smoked in Last 30 Days: No Use of substances other than those prescribed or required for medical reasons: No Currently Displaying Signs/Symptoms of Drug Intoxication Withdrawal: No Any prior treatment program specific to substance use: No Have you been hit, kicked, punched, or otherwise hurt by someone within the past year? If so, by whom?: No Do you feel safe in your current relationship?: No Current Relationship Are you made to feel afraid or neglected: No Advance Directives: No Advance Directives Information Provided: Yes Do you have thoughts of harming others: None Do you have a plan to hurt others: No Plan Recently lost weight without trying: No service: No Current occupational status: retired Meds Allergies Allergy/AdvReac Type Severity Reaction Status Date / Time crab AdvReac Intermediate NAUSEA & Verified 11/16/20 21:07 VOMITING crab Allergy Intermediate vomiting Uncoded 11/16/20 21:07 Active Medications: Current Medications Generic Name Dose Route Start Last Admin Trade Name Freq PRN Reason Stop Dose Admin Acetaminophen 650 mg 11/17/20 00:42 11/25/20 00:02 Acetaminophen 325 Mg Tablet PO 650 mg Q6H PRN Administration Pain, Mild (Pain Scale 1-3) Albuterol/Ipratropium 3 ml 11/20/20 14:37 11/24/20 10:30 Albuterol/Iprat 2.5/0.5mg 3 Ml Ampul.Neb INHALE 3 ml RQ4H PRN Administration sob Ferrous Sulfate 324 mg 11/23/20 17:00 11/25/20 10:39 Ferrous Sulfate 324 Mg Tablet. PO 324 mg BIDWM SHRUTI Administration Folic Acid 1 mg 11/17/20 09:00 11/25/20 10:39 Folic Acid 1 Mg Tablet PO 1 mg DAILY SHRUTI Administration Hydromorphone HCl 0.25 mg 11/21/20 16:37 11/23/20 08:28 Hydromorphone Hcl 0.5 Mg/0.5 Ml Syringe IVPUSH 0.25 mg Q4H PRN Administration Pain, Severe (Pain Scale 7-10) Hydroxychloroquine Sulfate 200 mg 11/17/20 09:00 11/25/20 10:39 Hydroxychloroquine Sulfate 200 Mg Tablet PO 200 mg BID SHRUTI Administration Doxycycline Hyclate 100 mg/ 250 mls @ 166.67 mls/hr 11/22/20 13:00 11/25/20 13:58 Sodium Chloride IV 166.67 mls/hr Q12H SHRUTI Administration Piperacillin Sod/Tazobactam 50 mls @ 100 mls/hr 11/25/20 12:00 11/25/20 14:03 Sod 3.375 gm/ Sodium Chloride IV Infused Q6H [facility] Infusion Methotrexate 20 mg 11/17/20 00:45 Methotrexate Sodium 2.5 Mg Tablet PO QWEEK [facility] Metoprolol Tartrate 25 mg 11/17/20 09:00 11/25/20 10:38 Metoprolol Tartrate 50 Mg Tablet PO 25 mg BID [facility] Administration Protocol Naloxone HCl 0.2 mg 11/21/20 16:37 Naloxone Hcl 0.4 Mg/Ml Vial IVPUSH Q2M PRN Excessive sedation or RR < 8 Non-Formulary Medication 1 tab 11/17/20 09:00 Ibrutinib [Imbruvica] PO DAILY [facility] Non-Formulary Medication 2 tab 11/17/20 09:00 Salsalate PO BID [facility] Omeprazole 20 mg 11/17/20 09:00 11/25/20 10:39 Omeprazole 20 Mg Capsule.Dr PO 20 mg DAILY SHRUTI Administration Oxycodone HCl 5 mg 11/23/20 13:26 11/24/20 20:05 Oxycodone Hcl Immed Release 5 Mg Tablet PO 5 mg Q6H PRN Administration Pain, Moderate (Pain Scale 4-6 Senna 17.2 mg 11/21/20 16:37 Sennosides 8.6 Mg Tablet PO BEDTIME PRN Constipation Sodium Chloride 3 ml 11/17/20 08:00 11/25/20 10:40 0.9 % Sodium Chloride Flush 3 Ml Syringe IVFLUSH 3 ml QSHIFT SHRUTI Administration Sodium Chloride 3 ml 11/21/20 16:37 11/25/20 10:40 0.9 % Sodium Chloride Flush 3 Ml Syringe IVFLUSH 3 ml QSHIFT SHRUTI Administration Home Medications Medication Instructions Recorded Confirmed Last Taken Type apixaban [Eliquis] 1 tab PO BID 11/16/20 11/16/20 Unknown History folic acid 1 tab PO DAILY 11/16/20 11/16/20 Unknown History furosemide 1 tab PO DAILY 11/16/20 11/16/20 Unknown History hydroxychloroquine 1 tab PO BID 11/16/20 11/16/20 Unknown History ibrutinib [Imbruvica] 1 tab PO DAILY 11/16/20 11/16/20 Unknown History methotrexate sodium 8 tab PO QWEEK 11/16/20 11/16/20 Unknown History metoprolol tartrate 0.5 tab PO BID 11/16/20 11/16/20 Unknown History pantoprazole 1 tab PO DAILY 11/16/20 11/16/20 Unknown History salsalate 2 tab PO BID 11/16/20 11/16/20 Unknown History Physical Exam Vital Signs: Vital Signs: Last Vital Signs Temp 97.2 F 11/25/20 12:00 Pulse 69 11/25/20 12:00 Resp 18 11/25/20 12:00 BP 114/49 L 11/25/20 12:00 Pulse Ox 92 11/25/20 12:00 Body Mass Index 23.3 Const: General: cooperative, no acute distress, alert and awake Orientation /consciousness: patient oriented x3 HENMT: Head: Yes normocephalic and Yes atraumatic Neck: Neck: Yes trachea midline, Yes supple and Yes no JVD Chest: Chest palpation & inspection: normal inspection of the chest Resp: Other: Breath sounds positive for bilateral crackles with diminished breath sounds in left lower españa. Cardio: Rate: regular rate Rhythm: regular rhythm Heart sounds: S1 normal heart sound present and S2 normal heart sound present GI: Palpation (GI): Soft to palpation and nontender Auscultation: normal bowel sounds Skin: General skin exam: dry skin Hair: normal Neuro: General: patient oriented x3 Results Labs Result diagrams: 11/25/20 06:37 11/25/20 06:37 Labs: Abnormal lab results 03/28/21 03/28/21 Range/Units 06:37 06:37 WBC 21.8 H (4.8-10.8) X10*3/uL Hgb 9.4 L (12.0-16.0) g/dl Hct 30.9 L (37-47) % MCV 71.4 L (80-98) fL MCH 21.7 L (27.0-33.0) pg MCHC 30.4 L (31.0-35.0) g/dl RDW 22.7 H (11.0-16.0) % Plt Count 527 H (160-400) X10*3/uL Immature Gran % (Auto) 0.9 H (0.0-0.4) % Neut % (Auto) 85.2 H (45-73) % Lymph % (Auto) 6.3 L (20-40) % [place] # (Auto) 1.6 H (0.1-1.2) X10*3/uL Abs Immat Gran (auto) 0.19 H (0.00-0.03) X10*3/uL Absolute Neuts (auto) 18.6 H (2.0-8.3) X10*3/uL Absolute Nucleated RBC 0.020 H (0.0-0.012) X10*3/uL Sodium 148 H (135-145) mmol/L Chloride 110 H (96-108) mmol/L BUN 18 H (9-16) mg/dL Short CBC 11/25/20 Range/Units 06:37 WBC 21.8 H (4.8-10.8) X10*3/uL Hgb 9.4 L (12.0-16.0) g/dl Hct 30.9 L (37-47) % Plt Count 527 H (160-400) X10*3/uL BMP 11/25/20 06:37 Sodium 148 H Potassium 4.4 Chloride 110 H Carbon Dioxide 26 BUN 18 H Creatinine 0.56 Calcium 8.6 Urine 11/16/20 Range/Units 23:59 Urine Color YELLOW Urine Appearance HAZY Urine pH 5.0 (5.0-8.0) Ur Specific [place] >= 1.030 H (1.005-1.025) Urine Protein 1+ H (NEG-TRACE) MG/DL Urine Glucose (UA) NEG (NEG) MG/DL All other labs normal. Assessment and Plan (1) Loculated pleural effusion: Status: Acute Patient is 79-year-old female with a past medical history of CLL, proximal atrial fibrillation with home use of Eliquis which is currently on hold, rheumatoid arthritis for which she is on methotrexate presented to [facility] with chief complaint of fall and left hip pain, noted to have a left hip fracture is now pod #4. S/P left femoral head arthroplasty. The patient subsequently developed respiratory failure with hypoxia secondary to HCAP. Chest CT revealed a large loculated left pleural effusion. I personally reviewed the CT images and agree with the radiologist's findings. It appears patient will require some sort of surgical intervention to address her left-sided loculated pleural effusion. Dr. Rosario will be examining CT images tomorrow and decide the best course of action which may include IR guided pigtail placement with chemical decortication versus left VATS mechanical decortication. -Spoke with medicine team and advised NPO at midnight for possible IR guided pigtail catheter tomorrow a.m. -Eliquis to remain on hold. -Continue broad-spectrum antibiotics. Thank you for allowing me to participate in this patient's care. Any questions or concerns please do not hesitate to contact the thoracic Surgical office.
[2020-11-25] MEDS: oxyCODONE HCl Immed Release 5 MG TABLET PO ×2 (15:37→22:38)
--- NOTE | 2020-11-25 16:51 | P.PNIM_ITS ---
Subjective Subjective Date of Service: 11/26/20 Interval History: Patient complaining of sore throat and difficulty swallowing, denies fever chills was noted to be tachypneic last night, this afternoon noted to have hypoxia for placed on 10 L of Oximizer. General no headache, no dizziness, no fever chills. CVS no chest pain, no palpitation. Respiratory no cough ,sob. Gastrointestinal no nausea, no vomiting, no abdominal pain, decreased by mouth intake Physical Exam Vital Signs: Vital Signs: Last Vital Signs Temp 98.4 F 11/25/20 15:44 Pulse 90 11/25/20 15:44 Resp 19 11/25/20 15:44 BP 121/44 L 11/25/20 15:44 Pulse Ox 77 L 11/25/20 15:44 Body Mass Index 23.3 General in bed, sick appearing, no acute distress. Mouth dry tongue, brown coating, no white patches, no ulcers Neck is supple no JVD. CVS regular rate rhythm, Respiratory lungs diminished breath sounds left base, right-sided rhonchi, no re spiratory distress, no wheeze Gastrointestinal abdomen soft, nontender, bowel sounds audible, no guarding , no rigidity. Extremities no edema. Neuro nonfocal , speech clear. Skin no rash Objective Data Current Medications Generic Name Dose Route Start Last Admin Trade Name Freq PRN Reason Stop Dose Admin Acetaminophen 650 mg 11/17/20 00:42 11/25/20 00:02 Acetaminophen 325 Mg Tablet PO 650 mg Q6H PRN Administration Pain, Mild (Pain Scale 1-3) Albuterol/Ipratropium 3 ml 11/20/20 14:37 11/24/20 10:30 Albuterol/Iprat 2.5/0.5mg 3 Ml Ampul.Neb INHALE 3 ml RQ4H PRN Administration sob Ferrous Sulfate 324 mg 11/23/20 17:00 11/25/20 10:39 Ferrous Sulfate 324 Mg Tablet. PO 324 mg BIDWM SHRUTI Administration Folic Acid 1 mg 11/17/20 09:00 11/25/20 10:39 Folic Acid 1 Mg Tablet PO 1 mg DAILY SHRUTI Administration Hydromorphone HCl 0.25 mg 11/21/20 16:37 11/23/20 08:28 Hydromorphone Hcl 0.5 Mg/0.5 Ml Syringe IVPUSH 0.25 mg Q4H PRN Administration Pain, Severe (Pain Scale 7-10) Hydroxychloroquine Sulfate 200 mg 11/17/20 09:00 11/25/20 10:39 Hydroxychloroquine Sulfate 200 Mg Tablet PO 200 mg BID [facility] Administration Doxycycline Hyclate 100 mg/ 250 mls @ 166.67 mls/hr 11/22/20 13:00 11/25/20 15:29 Sodium Chloride IV Infused Q12H SHRUTI Infusion Piperacillin Sod/Tazobactam 50 mls @ 100 mls/hr 11/25/20 12:00 11/25/20 14:03 Sod 3.375 gm/ Sodium Chloride IV Infused Q6H [facility] Infusion Methotrexate 20 mg 11/17/20 00:45 Methotrexate Sodium 2.5 Mg Tablet PO QWEEK [facility] Metoprolol Tartrate 25 mg 11/17/20 09:00 11/25/20 10:38 Metoprolol Tartrate 50 Mg Tablet PO 25 mg BID [facility] Administration Protocol Naloxone HCl 0.2 mg 11/21/20 16:37 Naloxone Hcl 0.4 Mg/Ml Vial IVPUSH Q2M PRN Excessive sedation or RR < 8 Pat Own Med - 1 each 11/25/20 14:30 11/25/20 15:42 Ibrutinib [Imbruvica PO Not Given ] 420 Mg Tablet DAILY [facility] Non-Formulary Medication 2 tab 11/17/20 09:00 Salsalate PO BID [facility] Omeprazole 20 mg 11/17/20 09:00 11/25/20 10:39 Omeprazole 20 Mg Capsule.Dr PO 20 mg DAILY [facility] Administration Oxycodone HCl 5 mg 11/23/20 13:26 11/25/20 15:37 Oxycodone Hcl Immed Release 5 Mg Tablet PO 5 mg Q6H PRN Administration Pain, Moderate (Pain Scale 4-6 Senna 17.2 mg 11/21/20 16:37 Sennosides 8.6 Mg Tablet PO BEDTIME PRN Constipation Sodium Chloride 3 ml 11/17/20 08:00 11/25/20 15:44 0.9 % Sodium Chloride Flush 3 Ml Syringe IVFLUSH Not Given QSHIFT [facility] Sodium Chloride 3 ml 11/21/20 16:37 11/25/20 10:40 0.9 % Sodium Chloride Flush 3 Ml Syringe IVFLUSH 3 ml QSHIFT [facility] Administration Labs CBC & Chem 7: 11/25/20 06:37 11/26/20 06:57 Assessment and Plan (1) Acute respiratory failure with hypoxia: Status: Acute (2) Loculated pleural effusion: Status: Acute (3) Odynophagia: Status: Acute (4) Iron deficiency anemia: Status: Acute (5) Closed hip fracture: Status: Acute (6) Pneumonia: Status: Acute Assessment and Plan: 79-year-old female with a past medical history of CLL, paroxysmal AFib, rheumatoid arthritis, recent diagnosis of UTI presented to the hospital with a chief complaint of fall and left hip pain noted to have left hip fracture. 1. L Hip fx secondary to mechanical fall s/p repair POD #4, good pain control, continue current pain medications, with APAP, and oxycodone and dc dilaudid. PT 2. Acute Resp. Failure with hypoxia secondary to HCAP chest x-ray showed bilateral airspace disease probably representing pneumonia and loculated left pleural effusion--chest CT of 11/23 showed large loculated left effusion and multifocal PNA Due to worsening WBC will change antibiotic to IV Zosyn,dc iv ceftriaxone and doxycycline Case discussed with thoracic surgery PA they recommend to keep patient NPO for possible IR drainage versus VATS Continue oxygen support, incentive spirometry at present pt is in no resp. distress. 3. E. Coli UTI will dc rocephin today s/p 6 doses 4. A. fib Continue metoprolol, Eliquis on hold for upcoming procedure for left loculated e ffusion 5. Acute blood loss anemia/iron deficiency with low MCV, continue Iron, no indication for transfusion at this time, follow H/H, hold iron transfusion due to acute infection 6. RA--cont. plaquenil a methotrexate is on hold 7. Leukocytosis--likely from infection ( loculated effusion) 8. Odynophagia question etiology as per family has history of thrush will treat patient with lozenges, Magic mouthwash and nystatin swish and swallow if not better obtain Gi eval. 9.Hypernatremia due to decrease po intake due to odynophagia will give iv d5w and follow bmp Full Code DVT pptx, eliquis stopped on 11/24 for drainage of Loculated effusion, cont compression thearpy. Code status full code
[2020-11-25] MEDS: Dextrose 5 % 1,000 ML 75 ML IVCONT (17:31)
[2020-11-25] MEDS: Nystatin Oral Susp 500,000 UNIT/5 ML ORAL.SUSP 500000 UNIT PO (17:39)
[2020-11-25] MEDS: Mag&Al/Sim/Diphenhyd/Lidocaine 10 ML ORAL.SUSP PO ×2 (18:23→22:38)
[2020-11-26] VITALS (28 sets, daily range): BP systolic 93–169; BP diastolic 33–139; PULSE 85–134; RESP 19–31; TEMP 36–37.3; O2SAT 83–99; BMI 23.3
[2020-11-26] MEDS: 0.9 % Sodium Chloride Flush 3 ML SYRINGE IVFLUSH ×5 (00:51→23:09)
[2020-11-26] MEDS: Doxycycline Hyclate 100 MG in 0.9 % Sodium Chloride 250 ML 166.67 MG IV (00:52)
[2020-11-26] MEDS: Piperacillin Sodium/Tazobactam 3.375 GM in 0.9 % Sodium Chloride 50 ML IV (00:52)
--- NOTE | 2020-11-26 05:53 | PM.EVENT ---
Event Note Date of Service: 11/26/20 Event Note: This is an 79-year-old female with a past medical history of CLL, paroxysmal AFib on Eliquis was on hold, rheum1 A rapid response was called on her around 5:30 as patient was radiating down. When I reached the patient room, patient was pulseless, CPR was started and the code was changed to code blue. Patient had pulseless electrical activity, received 2 rounds of epinephrine, 1 round of bicarb, and we were able to achieve ROSC. While in the hospital patient was also being managed for acute respiratory failure with hypoxia secondary to Hcap representing pneumonia versus loculated left pleural effusion seen on chest CT of 326. Patient was planned for possible IR drainage versus VATS this a.m Last pain med given was 10 pm 11/25. according to her nurse, pt was A&O x3 1 hr prior to code On review of her chart have been on anticoagulation, unclear etiology BP after achievement of ROSC 139/98 Dr Adame has been called, pt will be sent to CTA PE protocol, labs , ekg ordered
[2020-11-26] MEDS: Enoxaparin Sodium 30 MG/0.3 ML SYRINGE SUBCUT ×2 (05:54→10:06)
--- NOTE | 2020-11-26 06:30 | ECG_ITS ---
Test Reason : rhythm change Blood Pressure : / mmHG Vent. Rate : 130 BPM Atrial Rate : 130 BPM P-R Int : 196 ms QRS Dur : 096 ms QT Int : 398 ms P-R-T Axes : 056 065 061 degrees QTc Int : 585 ms Sinus tachycardia Marked ST abnormality, possible inferior subendocardial injury Marked ST abnormality, possible anterior subendocardial injury Abnormal ECG When compared to the previous EKG of significant ischemic changes are present. Referred By: Ruy Cruz Electronically Signed By:Ellis Medina
[2020-11-26 06:32] LABS: Venous Blood Gas Refer to POC result
[2020-11-26 06:33] LABS: VBG Base Excess -0.3 mmol/L; VBG HCO3 22 mmol/L (22-26); VBG pCO2 29 mmHg; VBG pH 7.48 (7.32-7.43); VBG pO2 206 mmHg
[2020-11-26] MEDS: propofoL 1,000 MG/100 ML VIAL 6.95 MG IVCONT (06:56)
--- NOTE | 2020-11-26 07:15 | PC.NURSE ---
This nurse notified by BOOMBOAT OPERATOR that patients HR bradying down to 30s-40s at 0530. Pt unresponsive. BOXING AND PRESSING SUPERVISOR called. CPR initiated after no pulse detected. Transfer to ICU. Last known well time was 0430 where pt was A&Ox3 and speaking full sentences. NPO for possible thoracentesis today for left pleural effusion. Pt was satting well on 10L oxymizer throughout the night.
[2020-11-26 07:21] LABS: INTERNATIONAL NORM RATIO 1.8 (0.9-1.1); Prothrombin Time 21.4 SEC (10.8-13.0)
[2020-11-26 07:24] LABS: Partial Thromboplastin Time 33.3 SEC (24.1-38.0)
[2020-11-26 07:27] LABS: Anion Gap 24 (12-20); Blood Urea Nitrogen 21 mg/dL (9-16); Calcium 8.6 mg/dL (8.4-10.2); Carbon Dioxide 18 mmol/L (22-29); Chloride 111 mmol/L (96-108); Creatinine Clr Calc Pharmacy 55.3; Estimated Glomerular Filt Rate > 60; Glucose Random 168 mg/dL (60-115); Lactic Acid 5.9 mmol/L (0.5-2.0); Potassium 4.2 mmol/L (3.3-5.1); Sodium 149 mmol/L (135-145)
[2020-11-26 07:31] LABS: Glucose, Whole Blood 137 mg/dL (60-115)
[2020-11-26 07:44] LABS: Troponin-I High Sensitivity 26.5 ng/L (<3.5-17.0)
[2020-11-26 07:47] LABS: Basophils Absolute Auto 0.1 X10*3/uL (0.0-0.2); Basophils Percent Auto 0.3 % (0-2); Hematocrit 35.3 % (37-47); Hemoglobin 10.3 g/dl (12.0-16.0); Imm Gran Abs Auto 0.56 X10*3/uL (0.00-0.03); Imm Gran Pct Auto 1.7 % (0.0-0.4); Lymphocytes Absolute Auto 2.2 X10*3/uL (1.2-4.9); Lymphocytes Percent Auto 6.6 % (20-40); MANUAL DIFF FLAG SCAN; Mean Corpuscular HGB Conc 29.2 g/dl (31.0-35.0); Mean Corpuscular Volume 75.4 fL (80-98); Mean Platelet Volume 10.3 fL (9.4-12.3); Monocytes Absolute Auto 2.1 X10*3/uL (0.1-1.2); Monocytes Percent Auto 6.3 % (2-11); NRBC Pct Auto 0.3 /100WBC (0.0-0.2); Neutrophils Absolute Auto 27.7 X10*3/uL (2.0-8.3); Neutrophils Percent Auto 85.1 % (45-73); Platelet Count 422 X10*3/uL (160-400); Red Blood Count 4.68 X10*6/uL (4.20-5.50); Red Cell Distribution Width 23.7 % (11.0-16.0); SCAN SMEAR FLAG 1
[2020-11-26 08:17] LABS: Alanine Aminotransferase 49 U/L (0-31); Albumin Level 2.5 g/dL (3.5-5.0); Alkaline Phosphatase 653 U/L (39-117); Aspartate Amino Transferase 108 U/L (5-31); Total Protein 4.9 g/dL (6.5-8.0)
--- NOTE | 2020-11-26 08:38 | W.PM.CCHP ---
Procedures Central Line Placement Left IJ: Consent for Procedure: Emergent-no informed consent obtained <Socorro Wu PA-C - Last Filed: 11/26/20 08:47> Time out performed: Yes <MILLI Hamm Last Filed: 11/26/20 08:47> Sterile Technique Used: Yes <MILLI Hamm Last Filed: 11/26/20 08:47> Patient placed on monitor/pulse ox: Yes <MILLI Hamm Last Filed: 11/26/20 08:47> MD prep: mask, gown and gloves <MILLI Hamm Last Filed: 11/26/20 08:47> Central line prep: Chlorhexidine scrub <MILLI Hamm Last Filed: 11/26/20 08:47> Ultrasound used for placement: Yes <MILLI Hamm Last Filed: 11/26/20 08:47> Central line lumen inserted: triple <Socorro Wu PA-C - Last Filed: 11/26/20 08:47> Post procedure: sutured in place, good blood return, all ports aspirated, flushed, capped and sterile dressing applied <MILLI Hamm Last Filed: 11/26/20 08:47> Post procedure x-ray: tip of catheter in good position and no pneumothorax seen <MILLI Hamm Last Filed: 11/26/20 08:47> Patient tolerated procedure: well and no complications <MILLI Hamm Last Filed: 11/26/20 08:47>
--- NOTE | 2020-11-26 08:43 | P.CONCC_ITS ---
History of Present Illness Data of Consult Service Date: 11/26/20 Requesting physician: Leif Muñiz Primary Care Provider: Unknown Physician HPI Reason for consult: Code urmila kearns was called at approximately 5:30 AM, Dr Albrecht at the [facility]. Patient had apparently anat down and was pulseless upon her arrival, CPR started, two rounds of epi given one round bicarb, ROSC achieved. RN Advised patient was advised patient was not on an anticoagulant as she just had a left hip surgery 5 days prior and her last oxycodone was 5 mg at approximately 10:[address] Guzmán came from the ED to intubate the patient and the patient was brought down to the ICU. Patient's BP labile, systolic in the 60's then up to 180's, levophed started, BP undetectable so neosynephrine started, BP still low so vasopressin started. HR tachy in the 130's. O2 sat not detectable at first but eventually was reading in the low 90s. EkG was sinus tach with possible infarct's, ST depression's. Patient had no venous access for iv contraat for CTA so a central line was placed in the left IJ. patient vital signs were finally stable enough to take her for a CTA. at this time, Dr. Cruz arrived to the ICU and took over care. [facility] Past Medical History Medical History CLL (chronic lymphocytic leukemia) Empyema lung Paroxysmal A-fib Rheumatoid arthritis Family History Family history: reviewed and not pertinent Social History Social History Household Members: None Housing: House Alcohol intake: never Smoking Status: Never smoker service: No Current occupational status: retired Meds Allergies Allergy/AdvReac Type Severity Reaction Status Date / Time crab AdvReac Intermediate NAUSEA & Verified 11/16/20 21:07 VOMITING crab Allergy Intermediate vomiting Uncoded 11/16/20 21:07 Active Medications: Current Medications Generic Name Dose Route Start Last Admin Trade Name Freq PRN Reason Stop Dose Admin Acetaminophen 650 mg 11/17/20 00:42 11/25/20 00:02 Acetaminophen 325 Mg Tablet PO 650 mg Q6H PRN Administration Pain, Mild (Pain Scale 1-3) Albuterol/Ipratropium 3 ml 11/20/20 14:37 11/24/20 10:30 Albuterol/Iprat 2.5/0.5mg 3 Ml Ampul.Neb INHALE 3 ml RQ4H PRN Administration sob Benzocaine 1 lozenge 11/25/20 17:04 Throat Lozenge, Medicated Lozenge MUCOUS MEM Q2H PRN Sore Throat Enoxaparin Sodium 60 mg 11/26/20 18:00 Enoxaparin Sodium 60 Mg/0.6 Ml Syringe 1 mg/kg (60 mg) SUBCUT Q12H SHRUTI Ferrous Sulfate 324 mg 11/23/20 17:00 11/25/20 17:42 Ferrous Sulfate 324 Mg Tablet. PO Not Given BIDWM SHRUTI Folic Acid 1 mg 11/17/20 09:00 11/25/20 10:39 Folic Acid 1 Mg Tablet PO 1 mg DAILY SHRUTI Administration Hydroxychloroquine Sulfate 200 mg 11/17/20 09:00 11/25/20 21:02 Hydroxychloroquine Sulfate 200 Mg Tablet PO 200 mg BID SHRUTI Administration Doxycycline Hyclate 100 mg/ 250 mls @ 166.67 mls/hr 11/22/20 13:00 11/26/20 02:26 Sodium Chloride IV Infused Q12H SHRUTI Infusion Piperacillin Sod/Tazobactam 50 mls @ 100 mls/hr 11/25/20 12:00 11/26/20 01:41 Sod 3.375 gm/ Sodium Chloride IV Infused Q6H SHRUTI Infusion Dextrose 1,000 mls @ 75 mls/hr 11/25/20 17:15 11/25/20 17:31 D5w IVCONT 75 mls/hr .[id number] SHRUTI Administration Propofol 1,000 mg in 100 mls @ 0 mls/hr 11/26/20 06:00 11/26/20 06:56 Diprivan IVCONT 20 mcg/kg/min .Q0M SHRUTI 6.95 mls/hr Administration Protocol Per Protocol Vasopressin 20 unit/ Sodium 101 mls @ 12.12 mls/hr 11/26/20 07:00 11/26/20 07:11 Chloride IVCONT 0.04 unit/min .Q8H20M SHRUTI 12.12 mls/hr Administration 0.04 UNIT/MIN Norepinephrine Bitartrate 8 mg in 250 mls @ 0 mls/hr 11/26/20 07:00 11/26/20 07:10 Levophed IVCONT 0.3 mcg/kg/min .Q0M SHRUTI 32.57 mls/hr Administration Protocol Per Protocol Phenylephrine HCl 20 mg/ 252 mls @ 0 mls/hr 11/26/20 07:00 11/26/20 08:14 Dextrose IVCONT 2.5 mcg/kg/min .Q0M SHRUTI 109.43 mls/hr Administration Protocol Per Protocol Lidocaine/Diphenhydr/Alum/Mg/Simeth 10 ml 11/25/20 17:15 11/25/20 22:38 Mag&Al/Sim/Diphenhyd/Lidocaine 10 Ml Oral.Susp PO 10 ml Q6H SHRUTI Administration Protocol Methotrexate 20 mg 11/17/20 00:45 Methotrexate Sodium 2.5 Mg Tablet PO QWEEK SHRUTI Naloxone HCl 0.2 mg 11/21/20 16:37 Naloxone Hcl 0.4 Mg/Ml Vial IVPUSH Q2M PRN Excessive sedation or RR < 8 Pat Own Med - 1 each 11/25/20 14:30 11/25/20 15:42 Ibrutinib [Imbruvica PO Not Given ] 420 Mg Tablet DAILY SHRUTI Non-Formulary Medication 2 tab 11/17/20 09:00 Salsalate PO BID SHRUTI Nystatin 500,000 unit 11/25/20 17:15 11/25/20 17:39 Nystatin Oral Susp 500,000 Unit/5 Ml Oral.Susp PO 500,000 unit QID SHRUTI Administration Protocol Omeprazole 20 mg 11/17/20 09:00 11/25/20 10:39 Omeprazole 20 Mg Capsule.Dr PO 20 mg DAILY SHRUTI Administration Oxycodone HCl 5 mg 11/23/20 13:26 11/25/20 22:38 Oxycodone Hcl Immed Release 5 Mg Tablet PO 5 mg Q6H PRN Administration Pain, Moderate (Pain Scale 4-6 Senna 17.2 mg 11/21/20 16:37 Sennosides 8.6 Mg Tablet PO BEDTIME PRN Constipation Sodium Chloride 3 ml 11/17/20 08:00 11/26/20 00:51 0.9 % Sodium Chloride Flush 3 Ml Syringe IVFLUSH 3 ml QSHIFT SHRUTI Administration Sodium Chloride 3 ml 11/21/20 16:37 11/26/20 00:52 0.9 % Sodium Chloride Flush 3 Ml Syringe IVFLUSH 3 ml QSHIFT [facility] Administration Home Medications Medication Instructions Recorded Confirmed Last Taken Type apixaban [Eliquis] 1 tab PO BID 11/16/20 11/16/20 Unknown History folic acid 1 tab PO DAILY 11/16/20 11/16/20 Unknown History furosemide 1 tab PO DAILY 11/16/20 11/16/20 Unknown History hydroxychloroquine 1 tab PO BID 11/16/20 11/16/20 Unknown History ibrutinib [Imbruvica] 1 tab PO DAILY 11/16/20 11/16/20 Unknown History methotrexate sodium 8 tab PO QWEEK 11/16/20 11/16/20 Unknown History metoprolol tartrate 0.5 tab PO BID 11/16/20 11/16/20 Unknown History pantoprazole 1 tab PO DAILY 11/16/20 11/16/20 Unknown History salsalate 2 tab PO BID 11/16/20 11/16/20 Unknown History Physical Exam Vital Signs: Vital Signs: Last Vital Signs Temp 97.6 F 11/26/20 03:54 Pulse 127 H 11/26/20 07:56 Resp 30 H 11/26/20 07:56 BP 152/80 H 11/26/20 07:56 Pulse Ox 94 11/26/20 07:56 Body Mass Index 23.3 Results Labs CBC & Chem 7: 11/25/20 06:37 11/26/20 06:57 Labs: BMP 11/26/20 11/26/20 06:57 06:57 Sodium 149 H Cancelled Potassium 4.2 Cancelled Chloride 111 H Cancelled Carbon Dioxide 18 L Cancelled BUN 21 H Cancelled Creatinine 0.63 Cancelled Calcium 8.6 Cancelled Liver Function 11/26/20 11/26/20 Range/Units 06:57 06:57 Total Bilirubin 1.0 Cancelled (0.0-1.0) mg/dL AST 108 H Cancelled (5-31) U/L ALT 49 H Cancelled (0-31) U/L Alkaline Phosphatase 653 H D Cancelled (39-117) U/L Albumin 2.5 L D Cancelled (3.5-5.0) g/dL
[2020-11-26 09:00] LABS: Reflex Lactate? Lactic Acid Added
[2020-11-26 09:07] LABS: White Blood Count 32.6 X10*3/uL (4.8-10.8)
[2020-11-26 09:32] LABS: SLIDE REVIEW VERIFIED
[2020-11-26 09:48] LABS: ~Lactic Acid-LAB USE ONLY 3.9 mmol/L (0.5-2.0)
--- NOTE | 2020-11-26 10:59 | PM.CCPN ---
Subjective Subjective Date of Service: 11/26/20 Interval History: 79-year-old lady with underlying history of rheumatoid arthritis on methotrexate, CLL, COPD, paroxysmal AFib on full dose anticoagulation, loculated left-sided pleural effusion, rheumatoid arthritis admitted on 11/17/2020 with left hip fracture after mechanical fall. Patient has had a left hip hemiarthroplasty on 11/21/2020. Her hospital course was complicated by progressive hypoxia likely secondary to chronic recurrent aspiration. On 11/26/2020 at approximately 5:00 a.m. patient was noted to be come bradycardic that further deteriorated into PEA cardiac arrest. CPR has been started, patient has been intubated during the CPR and returned spontaneous circulation has been achieved after 2 rounds of epinephrine. Patient has been transferred to intensive care unit. Physical Exam Vital Signs: Vital Signs: Last Vital Signs Temp 97.6 F 11/26/20 03:54 Pulse 115 H 11/26/20 09:00 Resp 31 H 11/26/20 09:00 BP 93/55 L 11/26/20 09:00 Pulse Ox 99 11/26/20 09:00 Body Mass Index 23.3 Const: General: no acute distress and other (Sedated on the vent) Eyes: Sclerae: sclerae normal Neck: Neck: Yes no lymphadenopathy, Yes trachea midline and Yes supple Resp: Auscultation: crackles (Bibasilar) Cardio: Rate: tachycardic Rhythm: regular rhythm Heart sounds: no gallops, no murmurs and no rubs GI: Palpation (GI): Soft to palpation and Other GI palpation findings present ( Nontender) Auscultation: normal bowel sounds Extrem: General: No clubbing, No cyanosis and Yes pedal edema (Trace bilateral) Objective Data Labs CBC & Chem 7: 11/26/20 06:57 11/26/20 06:57 Labs: Laboratory Results - last 24 hr 11/26/20 11/26/20 11/26/20 05:32 06:25 06:56 WBC RBC Hgb Hct MCV MCH MCHC RDW Plt Count MPV Immature Gran % (Auto) Neut % (Auto) Lymph % (Auto) [place] % (Auto) Eos % (Auto) Baso % (Auto) Lymph # (Auto) [place] # (Auto) Eos # (Auto) Baso # (Auto) Abs Immat Gran (auto) Absolute Neuts (auto) Absolute Nucleated RBC Nucleated RBC % (auto) Smear Tech's Comments PT INR APTT VBG pH 7.48 H VBG pCO2 29 VBG pO2 206 VBG HCO3 22 VBG O2 Saturation 100.0 VBG Base Excess -0.3 Sodium Potassium Chloride Carbon Dioxide Anion Gap BUN Creatinine Estim Creat Clear Calc Estimated GFR POC Glucose 137 H Random Glucose Lactic Acid Lactic Acid Fup @ 2Hr Calcium Total Bilirubin AST ALT Alkaline Phosphatase Troponin I High Sens 26.5 H D Total Protein Albumin 11/26/20 11/26/20 11/26/20 06:56 06:57 06:57 WBC 32.6 H* RBC 4.68 Hgb 10.3 L Hct 35.3 L MCV 75.4 L MCH 22.0 L MCHC 29.2 L RDW 23.7 H Plt Count 422 H MPV 10.3 Immature Gran % (Auto) 1.7 H Neut % (Auto) 85.1 H Lymph % (Auto) 6.6 L [place] % (Auto) 6.3 Eos % (Auto) 0.0 Baso % (Auto) 0.3 Lymph # (Auto) 2.2 [place] # (Auto) 2.1 H Eos # (Auto) 0.0 Baso # (Auto) 0.1 Abs Immat Gran (auto) 0.56 H Absolute Neuts (auto) 27.7 H Absolute Nucleated RBC 0.100 H Nucleated RBC % (auto) 0.3 H Smear Tech's Comments VERIFIED PT 21.4 H D INR 1.8 H APTT 33.3 VBG pH VBG pCO2 VBG pO2 VBG HCO3 VBG O2 Saturation VBG Base Excess Sodium 149 H Potassium 4.2 Chloride 111 H Carbon Dioxide 18 L Anion Gap 24 H BUN 21 H Creatinine 0.63 Estim Creat Clear Calc 55.3 Estimated GFR > 60 POC Glucose Random Glucose 168 H D Lactic Acid Lactic Acid Fup @ 2Hr Calcium 8.6 Total Bilirubin 1.0 AST 108 H ALT 49 H Alkaline Phosphatase 653 H D Troponin I High Sens Total Protein 4.9 L D Albumin 2.5 L D 11/26/20 11/26/20 11/26/20 06:57 06:57 09:18 WBC RBC Hgb Hct MCV MCH MCHC RDW Plt Count MPV Immature Gran % (Auto) Neut % (Auto) Lymph % (Auto) [place] % (Auto) Eos % (Auto) Baso % (Auto) Lymph # (Auto) [place] # (Auto) Eos # (Auto) Baso # (Auto) Abs Immat Gran (auto) Absolute Neuts (auto) Absolute Nucleated RBC Nucleated RBC % (auto) Smear Tech's Comments PT INR APTT VBG pH VBG pCO2 VBG pO2 VBG HCO3 VBG O2 Saturation VBG Base Excess Sodium Cancelled Potassium Cancelled Chloride Cancelled Carbon Dioxide Cancelled Anion Gap Cancelled BUN Cancelled Creatinine Cancelled Estim Creat Clear Calc Cancelled Estimated GFR Cancelled POC Glucose Random Glucose Cancelled Lactic Acid 5.9 H* Lactic Acid Fup @ 2Hr 3.9 H* Calcium Cancelled Total Bilirubin Cancelled AST Cancelled ALT Cancelled Alkaline Phosphatase Cancelled Troponin I High Sens Total Protein Cancelled Albumin Cancelled Progress Note: A&P Assessment and plan (1) Loculated pleural effusion: Status: Acute Assessment and Plan: Assessment: 79-year-old lady with underlying rheumatoid arthritis, CLL, COPD, paroxysmal AFib, chronic aspiration admitted with mechanical fall resulting in left hip fracture, now status post left hemiarthroplasty with hospital course further complicated by bradycardia/PEA cardiac arrest, now on ventilatory support. Plan: Neuro: Started to wake up after returned spontaneous circulation. No hypothermia protocol. Post CPR CT head with no acute findings. Will reassess mental status in 24-48 hours. Cardiac: Bradycardia, likely secondary to hypoxemia, likely secondary to an aspiration event, resulting in cardiopulmonary arrest. Status post returned spontaneous circulation after 2 rounds of epinephrine. Intubated during the CPR. 2D echocardiogram is pending. No evidence of PE on CTA chest. Pulmonary: Acute hypoxic respiratory failure, likely secondary to an aspiration event. Intubated during the CPR. Continue to titrate off ventilatory support as tolerated. Renal: No acute issues. Endo: No acute issues. GI: No acute issues. ID: Empirically covered for aspiration pneumonia with Unasyn. Heme/Onc: Underlying CLL, unable to crush Ibrutinib to give via OG tube. Psych: No acute issues. Miscellaneous: Rheumatoid arthritis on Plaquenil and methotrexate. Prophylaxis: Lovenox, famotidine Diet: Nothing by mouth Critical care time spent: 120 minutes excluding separately billable procedures (2) Acute respiratory failure with hypoxia: Status: Acute (3) Closed hip fracture: Status: Acute (4) Cardiopulmonary arrest: Status: Acute (5) Paroxysmal A-fib: Status: Inactive (6) CLL (chronic lymphocytic leukemia): Status: Inactive (7) Rheumatoid arthritis: Status: Inactive Time Spent With Patient Total time spent with greater than 50% in coordination of care (as documented) at patient's floor/unit and/or counseling patient:: 0 Critical Care Time Critical Care Time (minutes): 120
--- NOTE | 2020-11-26 11:09 | P.PNTS_ITS ---
Subjective Subjective Date of Service: 11/26/20 Interval history: Patient is intubated and sedated after at approximately 5 AM this morning under went a PEA arrest and ROSC after 2 rounds of epinephrine. Physical Exam Vital Signs: Vital Signs: Last Vital Signs Temp 97.3 F 11/26/20 11:00 Pulse 108 H 11/26/20 11:00 Resp 25 H 11/26/20 11:00 BP 111/69 11/26/20 11:00 Pulse Ox 98 11/26/20 11:00 Body Mass Index 23.3 Const: Other: Intubated and sedated Neck: Neck: Yes trachea midline Resp: Other: Breath sounds positive for crackles heard bilaterally. Cardio: Rate: regular rate Rhythm: regular rhythm Heart sounds: S1 normal heart sound present, S2 normal heart sound present, no gallops, no mur murs and no rubs GI: Inspection: Yes normal to inspection Palpation (GI): Soft to palpation Auscultation: normal bowel sounds Progress Note: A&P Assessment and plan (1) Loculated pleural effusion: Status: Acute Assessment and Plan: Patient is a 79-year-old female with a past medical history of CLL, COPD, rheumatoid arthritis on methotrexate, proximal atrial fibrillation on anticoagulation who presented to [facility] on 11/17/2020 with left hip fracture after mechanical fall. Patient is now s/p left hip arthroplasty which was performed on 11/21/2020. Her hospital course was complicated by progressive hypoxia and pneumonia. Was subsequently found to have a left-sided loculated pleural effusion on CT imaging for which thoracic surgery has been following. This morning at 5 AM patient was noted to become bradycardic and deteriorated into PEA cardiac arrest. CPR was initiated, patient was intubated and ROSC was achieved after 2 rounds of epinephrine. Patient was transferred to the intensive care unit for further observation and care. In regards to her left-sided loculated pleural effusion, recommendations would include IR guided pigtail placement followed by chemical decortication. This recommendation was given to ICU make up worker who does not feel it is appropriate at this time as she is quite unstable. When ICU deems it appropriate and safe to have left-sided chest tube placed please reconsult thoracic surgery for chest tube management and pleural chemical decortication. Fall Risk Details Current Medications: Current Medications Generic Name Dose Route Start Last Admin Trade Name Freq PRN Reason Stop Dose Admin Acetaminophen 650 mg 11/17/20 00:42 11/25/20 00:02 Acetaminophen 325 Mg Tablet PO 650 mg Q6H PRN Administration Pain, Mild (Pain Scale 1-3) Chlorhexidine Gluconate 15 ml 11/26/20 15:00 Chlorhexidine Gluc Oral Rinse 15 Ml Mouthwash BUCCAL TID [facility] Enoxaparin Sodium 40 mg 11/27/20 08:00 Enoxaparin Sodium 40 Mg/0.4 Ml Syringe SUBCUT Q24H [facility] Famotidine 20 mg 11/27/20 09:00 Famotidine/Pf 20 Mg/2 Ml Vial IVPUSH DAILY [facility] Hydroxychloroquine Sulfate 200 mg 11/17/20 09:00 11/25/20 21:02 Hydroxychloroquine Sulfate 200 Mg Tablet PO 200 mg BID [facility] Administration Propofol 1,000 mg in 100 mls @ 0 mls/hr 11/26/20 06:00 11/26/20 06:56 Diprivan IVCONT 20 mcg/kg/min .Q0M SHRUTI 6.95 mls/hr Administration Protocol Per Protocol Vasopressin 20 unit/ Sodium 101 mls @ 12.12 mls/hr 11/26/20 07:00 11/26/20 07:11 Chloride IVCONT 0.04 unit/min .Q8H20M SHRUTI 12.12 mls/hr Administration 0.04 UNIT/MIN Norepinephrine Bitartrate 8 mg in 250 mls @ 0 mls/hr 11/26/20 07:00 11/26/20 07:10 Levophed IVCONT 0.3 mcg/kg/min .Q0M SHRUTI 32.57 mls/hr Administration Protocol Per Protocol Phenylephrine HCl 20 mg/ 252 mls @ 0 mls/hr 11/26/20 07:00 11/26/20 08:14 Dextrose IVCONT 2.5 mcg/kg/min .Q0M SHRUTI 109.43 mls/hr Administration Protocol Per Protocol Ampicillin Sodium/Sulbactam 100 mls @ 200 mls/hr 11/26/20 12:00 Sodium 3 gm/ Sodium Chloride IV Q6H [facility] Methotrexate 20 mg 11/17/20 00:45 Methotrexate Sodium 2.5 Mg Tablet PO QWEEK [facility] Pat Own Med - 1 each 11/25/20 14:30 11/25/20 15:42 Ibrutinib [Imbruvica PO Not Given ] 420 Mg Tablet DAILY SHRUTI Sodium Chloride 3 ml 11/17/20 08:00 11/26/20 10:48 0.9 % Sodium Chloride Flush 3 Ml Syringe IVFLUSH 3 ml QSHIFT SHRUTI Administration Time Spent With Patient Time: Total time spent is greater than 50% in coordination of care (as documented) at patient's floor/unit and/or counseling patient: Time with patient: 15 - 24 minutes
--- NOTE | 2020-11-26 11:11 | MHC.CLN ---
RE: CONSULT PT IS INTUBATED AND SEDATED RECOMMEND JEVITY AT MAX GOAL RATE 50CC/HR WITH 120CC FREE WATER Q 6 HRS PROVIDES 1272KCALS (1455KCALS WITH SEDATION; 25KCALS/KG), 53G PROTEIN (.9G/KG), 1482CC TOTAL WATER FROM FORMULA AND FLUSHES (26CC/KG) START TF JEVITY 1.0 AT 20CC/HR AND INCREASE BY 10CC/HR UNTIL MAX GOAL RATE IS REACHED MONITOR FOR TOLERANCE, RESIDUALS AND LYTES SEE ALSO CLINICAL NUTRITION ASSESSMENT
[2020-11-26 11:23] LABS: Reflex Lactate? 2 Y
[2020-11-26 11:26] LABS: Lactic Acid 3.1 mmol/L (0.5-2.0)
[2020-11-26 11:30] LABS: Cancel Lactic Acid Canceled
[2020-11-26] MEDS: propofoL 1,000 MG/100 ML VIAL 10.42 MG IVCONT (12:59)
[2020-11-26 13:00] LABS: Reflex Lactate? Lactic Acid Added
[2020-11-26] MEDS: Hydroxychloroquine Sulfate 200 MG TABLET PO ×2 (13:01→20:16)
[2020-11-26] MEDS: Ampicillin Sodium/Sulbactam Na 3 GM in 0.9 % Sodium Chloride 100 ML IV ×3 (13:01→23:15)
[2020-11-26] MEDS: Albumin Human 25 % 100 ML IV ×2 (13:02→18:17)
--- NOTE | 2020-11-26 13:59 | CA_ITS ---
Transthoracic Echocardiogram Amended Patient (Last, First, Middle): Selene Parra E Gender: Female Date of : 1940 Age: 79 Procedure Date: 11/26/2020 Procedure Type: Transthoracic Echocardiogram Location: ICU Height: 157.48 cm Weight: 57.01 kg BSA: 1.57 m2 Heart Rate: bpm BP: 110 / 53 mmHg Violin Tutor: Referring MD: Ruy Cruz MD Symptoms: s/p cardiac arrest Study Quality: Fair ECG Rhythm: Sinus Conclusions: - Limited echo - The left ventricular systolic function is moderately decreased. The visually estimated ejection fraction is between 30-35%. - The apical anterior, apical inferior, mid anterior, mid inferior, apical lateral, apical septum, mid anterolateral, mid inferoseptal, mid anteroseptal, and mid inferolateral segments are akinetic. - The apex segment is dyskinetic. - Cannot exclude apical thrombus. Findings Procedure Information Contrast agent, definity, is being given per protocol without apparent complications. Left Ventricle Normal left ventricular cavity size. There is mildly increased left ventricular wall thickness. The left ventricular systolic function is moderately decreased. The visually estimated ejection fraction is between 30 35%. There is evidence of regional wall motion abnormalities. Diastolic function is indeterminate on the basis of available data. Cannot exclude apical thrombus in some views. Wall Motion Rest Echo Findings The apical anterior, apical inferior, mid anterior, mid inferior, apical lateral, apical septum, mid anterolateral, mid inferoseptal, mid anteroseptal, and mid inferolateral segments are akinetic. The apex segment is dyskinetic. Right Ventricle Normal right ventricular cavity size and systolic function. Tricuspid Valve Indeterminate right atrial pressure. Venous The inferior vena cava is dilated and does not collapse with inspiration. Pericardium/Pleural There is no evidence of pericardial effusion. Prior Study Comparison Changes noted compared to prior study dated: 11/21/2020. EF 30-35%, RWMA, ?apical thrombus. Measurements 2D Linear Measurements IVSd: 1.11 0.6-0.9/0.6-1.0 cm LVIDd: 3.29 3.9-5.3/4.2-5.9 cm LVIDd Index: 2.10 2.4-3.2/2.2-3.1 cm/m2 LVIDs: 2.38 2.0-3.6 cm LVPWd: 1.04 0.7-1.1 cm LV Mass: 130.39 67-162/88-224 g LV Mass Index: 83.05 43-95/49-115 g/m2 2D Systolic Function EF 4C: 44.30 >55% EF 2C: 39.40 >55% Tricuspid Valve TR Pk Pk: 3.41 TR Pk Grad: 47.00 RA Press: 3.00 RVSP: 48.00 Updated in Other Vendor System with Status of Final Ellis Medina MD electronically signed on 11/26/2020 7:21:35 PM with status of Final
--- NOTE | 2020-11-26 14:45 | MHC.CM.PN ---
Pt transferred to ICU following cardiac arrest requiring CPR and intubation. D/C plans will be reassessed daily as her needs are not quite known at this time.
[2020-11-26 17:46] LABS: Troponin-I High Sensitivity 1430.7 ng/L (<3.5-17.0)
[2020-11-26] MEDS: Heparin Sodium,Porcine/1/2NS 25,000 UNIT/250 ML IV.SOLN 8.11 UNIT IVCONT (18:15)
[2020-11-26] MEDS: Chlorhexidine Gluc Oral Rinse 15 ML MOUTHWASH BUCCAL ×2 (18:17→20:16)
[2020-11-26 18:20] LABS: INTERNATIONAL NORM RATIO 2.2 (0.9-1.1); Prothrombin Time 25.8 SEC (10.8-13.0)
--- NOTE | 2020-11-26 21:00 | PC.NURSE ---
ASSUMED CARE AT 07:00. PATIENT WAS RECENTLY CODED, RESCUSCITATED WITH EPI AND BICARB, AND NOW INTUBATED. TLC PLACED TO LEFT IJ BY PA AND PLACEMENT CONFIRMED BY CXR. NOTE, RED PORT DOES NOT DRAW BLOOD; WHITE AND BLUE DO. PATIENT BROUGHT TO CAT SCAN AND CT HEAD WO CONTRAST AND CTA CHEST WITH CONTRAST WERE DONE AND REVIEWED BY MD. PATIENT WAS INITIALLY TO GET CHEST TUBE THIS MORNING BY THORACIC SURGERY, PRIOR TO CODE, BUT THORACIC IN THIS MORNING AND DETERMINED NOT TO DO CHEST TUBE AT THIS TIME. UPON RETURN, OGT AND ORAL TEMP PROBE PLACED. WBC CRITICALLY HIGH AND TRENDED UP: 32.6; MD AWARE. PATIENT AFEBRILE. OGT PLACEMENT CONFIRMED VIA CXR, OK TO USE PER MD. NO DIET TO START UNTIL TOMORROW PER MD. PATIENT WITH #7.5 ETT, 22 CM ELIZABETH; AC SETTINGS; AC WAS LOWERED FROM 20 TO 16 OVER SHIFT; TV 400; PEEP WAS LOWERED FROM 7.5 TO 5 OVER SHIFT; FIO2 WAS LOWERED FROM 100% TO 30% AND RAISED BACK TO 40%--SPO2 WAS 100% ON THE FORMER SETTINGS, THEN 88-90% ON 60% AND FINALLY 91-95% ON 40% FIO2. PATIENT HAD SOME BLOOD TINGED SECRETIONS INITIALLY VIA INLINE AND THESE CLEARED TO NO SECRETIONS. PATIENT SEDATED ON PROPOFOL, WAS INITIALLY AT 20 MCG/KG/MIN, UPTITRATED HIGH 40, BACK DOWN TO 30--PATIENT REACTS TO LIGHT PAIN, OCCASIONALLY OPENS EYES TO VOICE, IS SOMEWHAT RESTLESS AT TIMES, BILATERAL WRIST RESTRAINTS ORDERED AND IN USE, PERRL, NO TRACKING, POSITIVE COUGH AND GAG. VASOPRESSIN GTT AT 0.04; LEVOPHED TITRATED DOWN FROM 0.3 MCG/KG/MIN TO 0.14 OVER SHIFT; CAYLA TITRATED FROM 4 TO OFF THIS MORNING; BLOOD PRESSURE TOLERATED TITRATION WELL; CONTINUING TO MONITOR. BEDSIDE ECHO DONE THIS AFTERNOON, DESCRIBED ANTERIOR WALL MOTION ABNORMALITIES, MD AWARE, ECG THIS MORNING WITH ST-CHANGES AND MD AWARE; HIGH SENSITIVITY TROPONINS CHECKED THIS EVENING AND CRITICALLY HIGH AT 1430.7, MD NOTIFIED, HEPARIN GTT STARTED PER ORDERS AND PROTOCOL, RUNNING AT 14 UNITS/KG/HOUR, WEIGHT USED 57.9. NEXT PTT-HD ORDERED FOR 00:00. PATIENT'S SON WAS IN THIS MORNING AND UPDATED BY MD TO PATIENT CONDITION. PATIENT WITH MINIMAL URINE OUTPUT, AVERAGING ABOUT 12 CC/HOUR, CONCENTRATED VIA ALMAZAN, THERE WAS AN HOUR THIS MORNING WITH NO URINE OUTPUT; MD AWARE. SOME BLANCHABLE REDNESS SOCORRO-ANAL AREA; BUNION DISCOLORED TO RIGHT FOOT; [place] WITH PAPULE ON PALMAR RIGHT FOOT; SOME CYANOTIC DISCOLORATION TO BOTTOMS OF FEET THIS MORNING SEEMS TO HAVE CLEARED UP; HEELS PINK AND BLANCHABLE; LEFT HEEL WITH SLIT INTACT; BILATERAL HEELS COVERD WITH FOAMS AND HEELBOS
[2020-11-26] MEDS: propofoL 1,000 MG/100 ML VIAL 13.9 MG IVCONT (22:25)
[2020-11-27] VITALS (36 sets, daily range): BP systolic 94–130; BP diastolic 46–69; PULSE 87–112; RESP 20–32; TEMP 36.2–36.9; O2SAT 89–98
[2020-11-27] MEDS: Albumin Human 25 % 100 ML IV ×2 (00:19→06:02)
[2020-11-27 00:26] LABS: PTT Heparin Drip 85.9 SEC (53-77.9)
[2020-11-27] MEDS: propofoL 1,000 MG/100 ML VIAL 13.9 MG IVCONT ×3 (04:04→20:39)
[2020-11-27] MEDS: Ampicillin Sodium/Sulbactam Na 3 GM in 0.9 % Sodium Chloride 100 ML IV ×4 (05:59→23:45)
[2020-11-27 06:47] LABS: Legionella Ag Urine Not Detected (Not Detected)
[2020-11-27 08:31] LABS: MANUAL DIFF FLAG NO
[2020-11-27 08:33] LABS: VBG Base Excess -2.6 mmol/L; VBG HCO3 20 mmol/L (22-26); VBG pCO2 29 mmHg; VBG pH 7.45 (7.32-7.43); VBG pO2 47 mmHg
[2020-11-27 08:34] LABS: Basophils Percent Auto 0.1 % (0-2); NRBC Pct Auto 0.5 /100WBC (0.0-0.2)
[2020-11-27 08:40] LABS: INTERNATIONAL NORM RATIO 1.7 (0.9-1.1)
[2020-11-27 08:42] LABS: Imm Gran Abs Auto 0.17 X10*3/uL (0.00-0.03); Lymphocytes Absolute Auto 1.2 X10*3/uL (1.2-4.9); Lymphocytes Percent Auto 7.1 % (20-40); Mean Corpuscular Hemoglobin 21.8 pg (27.0-33.0); Mean Corpuscular Volume 70.4 fL (80-98); Mean Platelet Volume 10.1 fL (9.4-12.3); Monocytes Absolute Auto 1.3 X10*3/uL (0.1-1.2); Monocytes Percent Auto 7.6 % (2-11); Neutrophils Absolute Auto 14.2 X10*3/uL (2.0-8.3); Neutrophils Percent Auto 84.2 % (45-73); Platelet Count 313 X10*3/uL (160-400); Red Blood Count 2.84 X10*6/uL (4.20-5.50); Red Cell Distribution Width 22.5 % (11.0-16.0); White Blood Count 16.8 X10*3/uL (4.8-10.8)
[2020-11-27 08:43] LABS: PTT Heparin Drip 69.7 SEC (53-77.9)
[2020-11-27 08:50] LABS: Hemoglobin 6.2 g/dl (12.0-16.0)
[2020-11-27 09:41] LABS: Alanine Aminotransferase 27 U/L (0-31); Albumin Level 3.7 g/dL (3.5-5.0); Alkaline Phosphatase 318 U/L (39-117); Anion Gap 22 (12-20); Aspartate Amino Transferase 41 U/L (5-31); Bilirubin Total 1.5 mg/dL (0.0-1.0); Blood Urea Nitrogen 39 mg/dL (9-16); Calcium 8.4 mg/dL (8.4-10.2); Carbon Dioxide 20 mmol/L (22-29); Chloride 111 mmol/L (96-108); Creatinine Clr Calc Pharmacy 24.6; Estimated Glomerular Filt Rate 36; Glucose Random 149 mg/dL (60-115); Phosphorus 3.5 mg/dL (2.7-4.5); Potassium 3.1 mmol/L (3.3-5.1); Sodium 150 mmol/L (135-145); Total Protein 5.1 g/dL (6.5-8.0)
[2020-11-27] MEDS: Chlorhexidine Gluc Oral Rinse 15 ML MOUTHWASH BUCCAL ×3 (10:02→23:45)
[2020-11-27] MEDS: Famotidine/PF 20 MG/2 ML VIAL IVPUSH (10:02)
[2020-11-27] MEDS: Furosemide 20 MG/2 ML VIAL IVPUSH (10:02)
[2020-11-27] MEDS: Hydroxychloroquine Sulfate 200 MG TABLET PO ×2 (10:02→23:45)
[2020-11-27] MEDS: Dextrose 5 % 1,000 ML 100 ML IVCONT ×2 (10:12→20:40)
[2020-11-27] MEDS: Potassium Chloride/H20 40 MEQ/100 ML PIGGYBACK 100 MEQ IV ×2 (10:21→12:20)
[2020-11-27 11:08] LABS: Venous Blood Gas Refer to POC result
--- NOTE | 2020-11-27 13:03 | PM.CCPN ---
Subjective Subjective Date of Service: 11/27/20 Interval History: 79-year-old lady with underlying history of rheumatoid arthritis on methotrexate, CLL, COPD, paroxysmal AFib on full dose anticoagulation, loculated left-sided pleural effusion, rheumatoid arthritis admitted on 11/17/2020 with left hip fracture after mechanical fall. Patient has had a left hip hemiarthroplasty on 11/21/2020. Her hospital course was complicated by progressive hypoxia likely secondary to chronic recurrent aspiration. On 11/26/2020 at approximately 5:00 a.m. patient was noted to be come bradycardic that further deteriorated into PEA cardiac arrest. CPR has been started, patient has been intubated during the CPR and returned spontaneous circulation has been achieved after 2 rounds of epinephrine. Patient has been transferred to intensive care unit. 2D echocardiogram with new C. Events overnight. Troponin down trended. Following commands with sedation vacation today. FiO2 requirements improved. Physical Exam Vital Signs: Vital Signs: Last Vital Signs Temp 97.7 F 11/27/20 10:00 Pulse 110 H 11/27/20 12:00 Resp 30 H 11/27/20 12:00 BP 110/55 L 11/27/20 12:00 Pulse Ox 89 L 11/27/20 12:00 Body Mass Index 23.3 Const: General: no acute distress and other (Sedated on the vent) Eyes: Sclerae: sclerae normal EOM: EOMs intact bilaterally Neck: Neck: Yes no lymphadenopathy, Yes trachea midline and Yes supple Resp: Effort & Inspection: normal respiratory effort Auscultation: crackles (Bibasilar) Cardio: Rate: tachycardic Rhythm: regular rhythm Heart sounds: no gallops, no murmurs and no rubs GI: Palpation (GI): Soft to palpation and Other GI palpation findings present ( Nontender) Auscultation: normal bowel sounds Extrem: General: No clubbing, No cyanosis and Yes pedal edema (Trace bilateral) Objective Data Labs CBC & Chem 7: 11/27/20 08:24 11/27/20 08:24 Labs: Laboratory Results - last 24 hr 11/23/20 11/26/20 11/26/20 14:26 16:18 18:02 WBC RBC Hgb Hct MCV MCH MCHC RDW Plt Count MPV Immature Gran % (Auto) Neut % (Auto) Lymph % (Auto) [place] % (Auto) Eos % (Auto) Baso % (Auto) Lymph # (Auto) [place] # (Auto) Eos # (Auto) Baso # (Auto) Abs Immat Gran (auto) Absolute Neuts (auto) Absolute Nucleated RBC Nucleated RBC % (auto) PT 25.8 H D INR 2.2 H PTT (Heparin Protocol) 34.0 L VBG pH VBG pCO2 VBG pO2 VBG HCO3 VBG O2 Saturation VBG Base Excess Sodium Potassium Chloride Carbon Dioxide Anion Gap BUN Creatinine Estim Creat Clear Calc Estimated GFR Random Glucose Calcium Phosphorus Magnesium Total Bilirubin AST ALT Alkaline Phosphatase Troponin I High Sens 1430.7 H D Total Protein Albumin Ur L.pneumophila Ag Not Detected Blood Type Antibody Screen Crossmatch 11/27/20 11/27/20 11/27/20 00:11 08:24 08:24 WBC 16.8 H RBC 2.84 L D Hgb 6.2 L* D Hct 20.0 L* D MCV 70.4 L D MCH 21.8 L MCHC 31.0 RDW 22.5 H Plt Count 313 D MPV 10.1 Immature Gran % (Auto) 1.0 H Neut % (Auto) 84.2 H Lymph % (Auto) 7.1 L [place] % (Auto) 7.6 Eos % (Auto) 0.0 Baso % (Auto) 0.1 Lymph # (Auto) 1.2 [place] # (Auto) 1.3 H Eos # (Auto) 0.0 Baso # (Auto) 0.0 Abs Immat Gran (auto) 0.17 H Absolute Neuts (auto) 14.2 H Absolute Nucleated RBC 0.090 H Nucleated RBC % (auto) 0.5 H PT INR PTT (Heparin Protocol) 85.9 H D VBG pH VBG pCO2 VBG pO2 VBG HCO3 VBG O2 Saturation VBG Base Excess Sodium 150 H Potassium 3.1 L D Chloride 111 H Carbon Dioxide 20 L Anion Gap 22 H BUN 39 H D Creatinine 1.42 H Estim Creat Clear Calc 24.6 Estimated GFR 36 Random Glucose 149 H Calcium 8.4 Phosphorus 3.5 Magnesium 2.0 Total Bilirubin 1.5 H AST 41 H D ALT 27 Alkaline Phosphatase 318 H D Troponin I High Sens Total Protein 5.1 L Albumin 3.7 D Ur L.pneumophila Ag Blood Type Antibody Screen Crossmatch 11/27/20 11/27/20 11/27/20 08:24 08:24 08:24 WBC RBC Hgb Hct MCV MCH MCHC RDW Plt Count MPV Immature Gran % (Auto) Neut % (Auto) Lymph % (Auto) [place] % (Auto) Eos % (Auto) Baso % (Auto) Lymph # (Auto) [place] # (Auto) Eos # (Auto) Baso # (Auto) Abs Immat Gran (auto) Absolute Neuts (auto) Absolute Nucleated RBC Nucleated RBC % (auto) PT 20.0 H D INR 1.7 H PTT (Heparin Protocol) 69.7 VBG pH VBG pCO2 VBG pO2 VBG HCO3 VBG O2 Saturation VBG Base Excess Sodium Potassium Chloride Carbon Dioxide Anion Gap BUN Creatinine Estim Creat Clear Calc Estimated GFR Random Glucose Calcium Phosphorus Magnesium Total Bilirubin AST ALT Alkaline Phosphatase Troponin I High Sens 1145.0 H Total Protein Albumin Ur L.pneumophila Ag Blood Type Antibody Screen Crossmatch 11/27/20 11/27/20 08:27 09:12 WBC RBC Hgb Hct MCV MCH MCHC RDW Plt Count MPV Immature Gran % (Auto) Neut % (Auto) Lymph % (Auto) [place] % (Auto) Eos % (Auto) Baso % (Auto) Lymph # (Auto) [place] # (Auto) Eos # (Auto) Baso # (Auto) Abs Immat Gran (auto) Absolute Neuts (auto) Absolute Nucleated RBC Nucleated RBC % (auto) PT INR PTT (Heparin Protocol) VBG pH 7.45 H VBG pCO2 29 VBG pO2 47 VBG HCO3 20 L VBG O2 Saturation 79.0 VBG Base Excess -2.6 Sodium Potassium Chloride Carbon Dioxide Anion Gap BUN Creatinine Estim Creat Clear Calc Estimated GFR Random Glucose Calcium Phosphorus Magnesium Total Bilirubin AST ALT Alkaline Phosphatase Troponin I High Sens Total Protein Albumin Ur L.pneumophila Ag Blood Type O Positive Antibody Screen NEGATIVE Crossmatch See Detail Progress Note: A&P Assessment and plan (1) Cardiopulmonary arrest: Status: Acute Assessment and Plan: Assessment: 79-year-old lady with underlying rheumatoid arthritis, CLL, COPD, paroxysmal AFib, chronic aspiration admitted with mechanical fall resulting in left hip fracture, now status post left hemiarthroplasty with hospital course further complicated by bradycardia/PEA cardiac arrest, now on ventilatory support. Plan: Neuro: Following commands with sedation vacation Cardiac: Bradycardia, likely secondary to hypoxemia, likely secondary to an aspiration event, resulting in cardiopulmonary arrest. Status post returned spontaneous circulation after 2 rounds of epinephrine. Intubated during the CPR. 2D echocardiogram with new wall motion abnormality. Cardiology evaluation is pending. Initially started on heparin drip, but discontinued secondary to acute blood loss anemia. Pulmonary: Acute hypoxic respiratory failure, likely secondary to an aspiration event. Intubated during the CPR. Continue to titrate off ventilatory support as tolerated. FiO2 requirements improving. Renal: Acute renal failure, likely secondary to ATN from recent cardiopulmonary arrest, non oliguric. Continue to monitor renal indices and urine output. Endo: No acute issues. GI: No acute issues. ID: Empirically covered for aspiration pneumonia with Unasyn. Likely aspiration pneumonitis. Will consider discontinuation in 24-48 hours. Heme/Onc: Underlying CLL, unable to crush Ibrutinib to give via OG tube. Acute blood loss anemia, while on heparin drip, likely secondary to hemodilution and possible occult slow GI bleed. Heparin drip discontinued. Psych: No acute issues. Miscellaneous: Rheumatoid arthritis on Plaquenil and methotrexate. Prophylaxis: Intermittent pneumatic compression,, famotidine Diet: Tube feeds Critical care time spent: 60 minutes (2) Acute respiratory failure with hypoxia: Status: Acute (3) Closed hip fracture: Status: Acute (4) CLL (chronic lymphocytic leukemia): Status: Acute (5) Paroxysmal A-fib: Status: Acute (6) Aspiration pneumonitis: Status: Acute (7) Regional wall motion abnormality of heart: Status: Acute (8) Acute kidney injury: Status: Acute (9) Rheumatoid arthritis: Status: Acute (10) Acute blood loss anemia: Status: Acute Time Spent With Patient Total time spent with greater than 50% in coordination of care (as documented) at patient's floor/unit and/or counseling patient:: 0
--- NOTE | 2020-11-27 14:13 | P.PNID_ITS ---
Subjective Subjective Date of Service: 11/27/20 Interval History: she continues to have consolidation lungs she has been on Ceftriaxone and Doxycycline and then Zosyn and now day 2 Unasyn for aspiration pneumonia concerns there are no changes in ventilator setting Objective Data Labs CBC & Chem 7: 11/27/20 08:24 11/27/20 08:24 Labs: Laboratory Results - last 24 hr 11/23/20 11/26/20 11/26/20 14:26 16:18 18:02 WBC RBC Hgb Hct MCV MCH MCHC RDW Plt Count MPV Immature Gran % (Auto) Neut % (Auto) Lymph % (Auto) [place] % (Auto) Eos % (Auto) Baso % (Auto) Lymph # (Auto) [place] # (Auto) Eos # (Auto) Baso # (Auto) Abs Immat Gran (auto) Absolute Neuts (auto) Absolute Nucleated RBC Nucleated RBC % (auto) PT 25.8 H D INR 2.2 H PTT (Heparin Protocol) 34.0 L VBG pH VBG pCO2 VBG pO2 VBG HCO3 VBG O2 Saturation VBG Base Excess Sodium Potassium Chloride Carbon Dioxide Anion Gap BUN Creatinine Estim Creat Clear Calc Estimated GFR Random Glucose Calcium Phosphorus Magnesium Total Bilirubin AST ALT Alkaline Phosphatase Troponin I High Sens 1430.7 H D Total Protein Albumin Ur L.pneumophila Ag Not Detected Blood Type Antibody Screen Crossmatch 11/27/20 11/27/20 11/27/20 00:11 08:24 08:24 WBC 16.8 H RBC 2.84 L D Hgb 6.2 L* D Hct 20.0 L* D MCV 70.4 L D MCH 21.8 L MCHC 31.0 RDW 22.5 H Plt Count 313 D MPV 10.1 Immature Gran % (Auto) 1.0 H Neut % (Auto) 84.2 H Lymph % (Auto) 7.1 L [place] % (Auto) 7.6 Eos % (Auto) 0.0 Baso % (Auto) 0.1 Lymph # (Auto) 1.2 [place] # (Auto) 1.3 H Eos # (Auto) 0.0 Baso # (Auto) 0.0 Abs Immat Gran (auto) 0.17 H Absolute Neuts (auto) 14.2 H Absolute Nucleated RBC 0.090 H Nucleated RBC % (auto) 0.5 H PT INR PTT (Heparin Protocol) 85.9 H D VBG pH VBG pCO2 VBG pO2 VBG HCO3 VBG O2 Saturation VBG Base Excess Sodium 150 H Potassium 3.1 L D Chloride 111 H Carbon Dioxide 20 L Anion Gap 22 H BUN 39 H D Creatinine 1.42 H Estim Creat Clear Calc 24.6 Estimated GFR 36 Random Glucose 149 H Calcium 8.4 Phosphorus 3.5 Magnesium 2.0 Total Bilirubin 1.5 H AST 41 H D ALT 27 Alkaline Phosphatase 318 H D Troponin I High Sens Total Protein 5.1 L Albumin 3.7 D Ur L.pneumophila Ag Blood Type Antibody Screen Crossmatch 11/27/20 11/27/20 11/27/20 08:24 08:24 08:24 WBC RBC Hgb Hct MCV MCH MCHC RDW Plt Count MPV Immature Gran % (Auto) Neut % (Auto) Lymph % (Auto) [place] % (Auto) Eos % (Auto) Baso % (Auto) Lymph # (Auto) [place] # (Auto) Eos # (Auto) Baso # (Auto) Abs Immat Gran (auto) Absolute Neuts (auto) Absolute Nucleated RBC Nucleated RBC % (auto) PT 20.0 H D INR 1.7 H PTT (Heparin Protocol) 69.7 VBG pH VBG pCO2 VBG pO2 VBG HCO3 VBG O2 Saturation VBG Base Excess Sodium Potassium Chloride Carbon Dioxide Anion Gap BUN Creatinine Estim Creat Clear Calc Estimated GFR Random Glucose Calcium Phosphorus Magnesium Total Bilirubin AST ALT Alkaline Phosphatase Troponin I High Sens 1145.0 H Total Protein Albumin Ur L.pneumophila Ag Blood Type Antibody Screen Crossmatch 11/27/20 11/27/20 08:27 09:12 WBC RBC Hgb Hct MCV MCH MCHC RDW Plt Count MPV Immature Gran % (Auto) Neut % (Auto) Lymph % (Auto) [place] % (Auto) Eos % (Auto) Baso % (Auto) Lymph # (Auto) [place] # (Auto) Eos # (Auto) Baso # (Auto) Abs Immat Gran (auto) Absolute Neuts (auto) Absolute Nucleated RBC Nucleated RBC % (auto) PT INR PTT (Heparin Protocol) VBG pH 7.45 H VBG pCO2 29 VBG pO2 47 VBG HCO3 20 L VBG O2 Saturation 79.0 VBG Base Excess -2.6 Sodium Potassium Chloride Carbon Dioxide Anion Gap BUN Creatinine Estim Creat Clear Calc Estimated GFR Random Glucose Calcium Phosphorus Magnesium Total Bilirubin AST ALT Alkaline Phosphatase Troponin I High Sens Total Protein Albumin Ur L.pneumophila Ag Blood Type O Positive Antibody Screen NEGATIVE Crossmatch See Detail Physical Exam Vital Signs: Vital Signs: Last Vital Signs Temp 97.3 F 11/27/20 13:57 Pulse 108 H 11/27/20 13:57 Resp 26 H 11/27/20 13:57 BP 118/61 11/27/20 13:57 Pulse Ox 91 L 11/27/20 13:55 Body Mass Index 23.3 Const: General: cooperative HENMT: Head: Yes normal to inspection Mouth: Normal oral and palatal mucosa present Resp: Effort & Inspection: normal respiratory effort Cardio: Rate: regular rate Rhythm: regular rhythm GI: Palpation (GI): nontender Extrem: General: Yes normal to inspection Assessment and Plan Assessment and plan (1) Pneumonia: Problem details: She has aspiration pneumonia She is now on day 7 antibiotics and has no specific organism She has been on Ceftriaxone and Doxycycline and day 2 Unasyn Status: Acute Assessment and Plan: Would stop antibiotics tomorrow or next day Time Spent With Patient Time: Total time spent is greater than 50% in coordination of care (as documented) at patient's floor/unit and/or counseling patient: Time with patient: 15 - 24 minutes
--- NOTE | 2020-11-27 15:00 | PC.NURSE ---
pt remains intubated on AC settings, sedation vacation this am x 1 hour, pt awake with eyes open, not tolerating pressure support on vent, pt re-sedated with propofol, vaso and levo off, BP remains stable, HR 90's-low 100's MD aware, heparin drip d/c this am, pt receiving 1 unit of RBCs for low H&H, TLC intact to LIJ, pt placed on airloss bed, ortho PA contacted for dressing changed to L hip, dressing was saturated and leaking, spoke with son Elmer for update, small amt green smearing BM when changed in am, [place] intact, minimal output MD aware, will cont to monitor
--- NOTE | 2020-11-27 16:15 | P.CONCA_ITS ---
History of Present Illness History of Present Illness Date of Service: 11/27/20 Requesting physician: Ruy Cruz Chief complaint: NSTEMI Narrative: 79-year-old female who had aspiration followed by bradycardia and PEA. She was revived and has been on ventilator at this stage. We are consulted for NSTEMI and regional wall motion abnormalities noticed on the ec hocardiogram. She is currently sedated and ventilated. Chart was reviewed and it appears that she was on the floor where she had vomiting follow-up aspiration. She was hypoxic and tachycardic. EKG showed ST depressions. She required vasopressors to support her. She has been noticed to be anemic and last hemoglobin is 6.2. Creatinine is 1.42. High sensitivity troponin levels were 9.7, 26.5, 14 30 and 1145. Echocardiography reviewed by me showed EF of 30- 35% with wall motion abnormalities involving mid to distal perera and apex. The apex was dyskinetic. There was concern for small apical thrombus which could not be ruled out. Patient was previously on Eliquis. She was on heparin drip but due to anemia and happen repassed was stopped appropriately. She has background history of CLL, COPD, paroxysmal atrial fibrillation on Eliquis and rheumatoid arthritis. She will urgently admitted with fall and left hip pain and noticed to have fracture. She underwent left hip leanne arthroplasty on 11/21/2020. Review of Systems Review of Systems: Yes Unobtainable due to mental status FOR[facility] Past Medical History Medical History (Updated 11/27/20 @ 17:20 by Ellis Medina MD) CLL (chronic lymphocytic leukemia) Empyema lung Paroxysmal A-fib Rheumatoid arthritis Family History Family history: reviewed and not pertinent Social History Social History Household Members: None Housing: House Alcohol intake: never Smoking Status: Never smoker service: No Current occupational status: retired Meds Allergies Allergy/AdvReac Type Severity Reaction Status Date / Time crab AdvReac Intermediate NAUSEA & Verified 11/16/20 21:07 VOMITING crab Allergy Intermediate vomiting Uncoded 11/16/20 21:07 Active Medications: Current Medications Generic Name Dose Route Start Last Admin Trade Name Freq PRN Reason Stop Dose Admin Acetaminophen 650 mg 11/26/20 12:46 Acetaminophen Oral Liquid 650 Mg/20.3 Ml Solution PO Q6H PRN Pain, Mild (Pain Scale 1-3) Chlorhexidine Gluconate 15 ml 11/26/20 15:00 11/27/20 10:02 Chlorhexidine Gluc Oral Rinse 15 Ml Mouthwash BUCCAL 15 ml TID SHRUTI Administration Famotidine 20 mg 11/27/20 09:00 11/27/20 10:02 Famotidine/Pf 20 Mg/2 Ml Vial IVPUSH 20 mg DAILY SHRUTI Administration Fentanyl 50 mcg 11/27/20 10:51 Fentanyl Citrate/Pf 100 Mcg/2 Ml Vial IVPUSH Q2H PRN Pain, Moderate (Pain Scale 4-6 Hydroxychloroquine Sulfate 200 mg 11/17/20 09:00 11/27/20 10:02 Hydroxychloroquine Sulfate 200 Mg Tablet PO 200 mg BID SHRUTI Administration Propofol 1,000 mg in 100 mls @ 0 mls/hr 11/26/20 06:00 11/27/20 12:18 Diprivan IVCONT 40 mcg/kg/min .Q0M SHRUTI 13.9 mls/hr Administration Protocol Per Protocol Vasopressin 20 unit/ Sodium 101 mls @ 12.12 mls/hr 11/26/20 07:00 11/27/20 11:00 Chloride IVCONT 0 unit/min .Q8H20M SHRUTI 0 mls/hr Infusion 0.04 UNIT/MIN Norepinephrine Bitartrate 8 mg in 250 mls @ 0 mls/hr 11/26/20 07:00 11/27/20 02:45 Levophed IVCONT 0 mcg/kg/min .Q0M SHRUTI 0 mls/hr Titration Protocol Per Protocol Phenylephrine HCl 20 mg/ 252 mls @ 0 mls/hr 11/26/20 07:00 11/26/20 09:00 Dextrose IVCONT 0 mcg/kg/min .Q0M SHRUTI 0 mls/hr Titration Protocol Per Protocol Ampicillin Sodium/Sulbactam 100 mls @ 200 mls/hr 11/26/20 12:00 11/27/20 14:47 Sodium 3 gm/ Sodium Chloride IV Infused Q6H SHRUTI Infusion Dextrose 1,000 mls @ 100 mls/hr 11/27/20 10:00 11/27/20 10:12 D5w IVCONT 100 mls/hr .Q10H SHRUTI Administration Methotrexate 20 mg 11/17/20 00:45 Methotrexate Sodium 2.5 Mg Tablet PO QWEEK [facility] Pat Own Med - 1 each 11/25/20 14:30 11/27/20 10:04 Ibrutinib [Imbruvica PO Not Given ] 420 Mg Tablet DAILY [facility] Sodium Chloride 3 ml 11/17/20 08:00 11/27/20 09:56 0.9 % Sodium Chloride Flush 3 Ml Syringe IVFLUSH Not Given QSHIFT [facility] Home Medications Medication Instructions Recorded Confirmed Last Taken Type apixaban [Eliquis] 1 tab PO BID 11/16/20 11/16/20 Unknown History folic acid 1 tab PO DAILY 11/16/20 11/16/20 Unknown History furosemide 1 tab PO DAILY 11/16/20 11/16/20 Unknown History hydroxychloroquine 1 tab PO BID 11/16/20 11/16/20 Unknown History ibrutinib [Imbruvica] 1 tab PO DAILY 11/16/20 11/16/20 Unknown History methotrexate sodium 8 tab PO QWEEK 11/16/20 11/16/20 Unknown History metoprolol tartrate 0.5 tab PO BID 11/16/20 11/16/20 Unknown History pantoprazole 1 tab PO DAILY 11/16/20 11/16/20 Unknown History salsalate 2 tab PO BID 11/16/20 11/16/20 Unknown History Physical Exam Vital Signs: Vital Signs: Last Vital Signs Temp 97.3 F 11/27/20 16:00 Pulse 104 H 11/27/20 16:00 Resp 29 H 11/27/20 16:00 BP 109/61 11/27/20 16:00 Pulse Ox 91 L 11/27/20 16:00 Body Mass Index 23.3 GENERAL APPEARANCE: in no acute distress, sedated and ventilated. HEENT: unremarkable. HEAD: normocephalic, atraumatic. NECK/THYROID: no carotid bruit, no jugular venous distention. SKIN: no suspicious lesions, warm and dry. Left hip wound dressed. HEART: no murmurs, regular rate and rhythm, S1, S2 normal. LUNGS: clear to auscultation anteriorly. ABDOMEN: normal, bowel sounds present, soft, nondistended. EXTREMITIES: no clubbing, cyanosis, or edema. NEUROLOGIC: Currently sedated and vented. Results Labs and Meds Result diagrams: 11/27/20 08:24 11/27/20 08:24 Lab results: Laboratory Results - last 24 hr 11/23/20 11/26/20 11/26/20 14:26 16:18 18:02 WBC RBC Hgb Hct MCV MCH MCHC RDW Plt Count MPV Immature Gran % (Auto) Neut % (Auto) Lymph % (Auto) [place] % (Auto) Eos % (Auto) Baso % (Auto) Lymph # (Auto) Person # (Auto) Eos # (Auto) Baso # (Auto) Abs Immat Gran (auto) Absolute Neuts (auto) Absolute Nucleated RBC Nucleated RBC % (auto) PT 25.8 H D INR 2.2 H PTT (Heparin Protocol) 34.0 L VBG pH VBG pCO2 VBG pO2 VBG HCO3 VBG O2 Saturation VBG Base Excess Sodium Potassium Chloride Carbon Dioxide Anion Gap BUN Creatinine Estim Creat Clear Calc Estimated GFR Random Glucose Calcium Phosphorus Magnesium Total Bilirubin AST ALT Alkaline Phosphatase Troponin I High Sens 1430.7 H D Total Protein Albumin Ur L.pneumophila Ag Not Detected Blood Type Antibody Screen Crossmatch 11/27/20 11/27/20 11/27/20 00:11 08:24 08:24 WBC 16.8 H RBC 2.84 L D Hgb 6.2 L* D Hct 20.0 L* D MCV 70.4 L D MCH 21.8 L MCHC 31.0 RDW 22.5 H Plt Count 313 D MPV 10.1 Immature Gran % (Auto) 1.0 H Neut % (Auto) 84.2 H Lymph % (Auto) 7.1 L [place] % (Auto) 7.6 Eos % (Auto) 0.0 Baso % (Auto) 0.1 Lymph # (Auto) 1.2 Person # (Auto) 1.3 H Eos # (Auto) 0.0 Baso # (Auto) 0.0 Abs Immat Gran (auto) 0.17 H Absolute Neuts (auto) 14.2 H Absolute Nucleated RBC 0.090 H Nucleated RBC % (auto) 0.5 H PT INR PTT (Heparin Protocol) 85.9 H D VBG pH VBG pCO2 VBG pO2 VBG HCO3 VBG O2 Saturation VBG Base Excess Sodium 150 H Potassium 3.1 L D Chloride 111 H Carbon Dioxide 20 L Anion Gap 22 H BUN 39 H D Creatinine 1.42 H Estim Creat Clear Calc 24.6 Estimated GFR 36 Random Glucose 149 H Calcium 8.4 Phosphorus 3.5 Magnesium 2.0 Total Bilirubin 1.5 H AST 41 H D ALT 27 Alkaline Phosphatase 318 H D Troponin I High Sens Total Protein 5.1 L Albumin 3.7 D Ur L.pneumophila Ag Blood Type Antibody Screen Crossmatch 11/27/20 11/27/20 11/27/20 08:24 08:24 08:24 WBC RBC Hgb Hct MCV MCH MCHC RDW Plt Count MPV Immature Gran % (Auto) Neut % (Auto) Lymph % (Auto) Person % (Auto) Eos % (Auto) Baso % (Auto) Lymph # (Auto) Person # (Auto) Eos # (Auto) Baso # (Auto) Abs Immat Gran (auto) Absolute Neuts (auto) Absolute Nucleated RBC Nucleated RBC % (auto) PT 20.0 H D INR 1.7 H PTT (Heparin Protocol) 69.7 VBG pH VBG pCO2 VBG pO2 VBG HCO3 VBG O2 Saturation VBG Base Excess Sodium Potassium Chloride Carbon Dioxide Anion Gap BUN Creatinine Estim Creat Clear Calc Estimated GFR Random Glucose Calcium Phosphorus Magnesium Total Bilirubin AST ALT Alkaline Phosphatase Troponin I High Sens 1145.0 H Total Protein Albumin Ur L.pneumophila Ag Blood Type Antibody Screen Crossmatch 11/27/20 11/27/20 08:27 09:12 WBC RBC Hgb Hct MCV MCH MCHC RDW Plt Count MPV Immature Gran % (Auto) Neut % (Auto) Lymph % (Auto) Person % (Auto) Eos % (Auto) Baso % (Auto) Lymph # (Auto) Person # (Auto) Eos # (Auto) Baso # (Auto) Abs Immat Gran (auto) Absolute Neuts (auto) Absolute Nucleated RBC Nucleated RBC % (auto) PT INR PTT (Heparin Protocol) VBG pH 7.45 H VBG pCO2 29 VBG pO2 47 VBG HCO3 20 L VBG O2 Saturation 79.0 VBG Base Excess -2.6 Sodium Potassium Chloride Carbon Dioxide Anion Gap BUN Creatinine Estim Creat Clear Calc Estimated GFR Random Glucose Calcium Phosphorus Magnesium Total Bilirubin AST ALT Alkaline Phosphatase Troponin I High Sens Total Protein Albumin Ur L.pneumophila Ag Blood Type O Positive Antibody Screen NEGATIVE Crossmatch See Detail Assessment and Plan (1) Acute blood loss anemia: Status: Acute (2) Acute kidney injury: Status: Acute (3) Paroxysmal A-fib: Status: Acute (4) NSTEMI (non-ST elevated myocardial infarction): Status: Acute (5) Cardiomyopathy: Status: Acute 79-year-old female who had aspiration pneumonia followed by a proxy and bradycardia with pulseless electrical activity for which she underwent CPR and resuscitation. She is currently sedated and ventilated. She ruled in for NSTEMI. Echocardiography showing EF of 30-35% with mid to distal akinesis involving all segments with apical dyskinesis. In some views and apical throm bus cannot be ruled out. She has been anemic and is getting blood transfusion. She has been off heparin at this stage appropriately. The overall clinical situation and echocardiography features are pointing to her stressed induced cardiomyopathy. Obviously this is a diagnosis of exclusion after cardiac catheterization has been performed. In any case right now due to anemia and concern for blood loss she is not a candidate for heparin drip. She has been transfused. In some views on her echocardiography and apical thrombus cannot be ruled out. We will repeat her echocardiogram with contrast in a day to reassess that. Right now fortunately due to anemia and drop in hemoglobin it is not safe to give her anticoagulation. We will follow along with you. Thank you for allowing me to participate in the care of your patient. Please feel free to contact me if you have any questions.
[2020-11-27] MEDS: 0.9 % Sodium Chloride Flush 3 ML SYRINGE IVFLUSH ×2 (16:34→23:45)
--- NOTE | 2020-11-27 18:27 | PC.NURSE ---
PT INCONTINENT OF SMALL GREEN LIQUID STOOL, HARD STOOL NOTED AT RECTUM, RECTUM MASSAGED WILL MINIMAL EFFECT. SOAP SUDS ENEMA GIVEN WITH SOME EFFECT. BARRIER CREAM AND REPOSITIONED, WILL CONTINUE TO MONITOR. ORTHO BEDSIDE TO CHANGE LEFT HIP SURGICAL DRESSING, NOW C/D/I. VENT SETTING CHANGED TO AC 16 TV 400 PEEP 5 FI02 45%.
[2020-11-28] VITALS (30 sets, daily range): BP systolic 99–159; BP diastolic 48–83; PULSE 89–114; RESP 17–36; TEMP 36.4–37.4; O2SAT 88–99
[2020-11-28] MEDS: Furosemide 20 MG/2 ML VIAL IVPUSH ×2 (00:47→03:28)
[2020-11-28] MEDS: propofoL 1,000 MG/100 ML VIAL 13.9 MG IVCONT (03:28)
[2020-11-28] MEDS: Dextrose 5 % 1,000 ML 100 ML IVCONT (03:31)
--- NOTE | 2020-11-28 04:11 | PC.NURSE ---
Shift eval 7p-3a - Patient intubated / sedated - see assessments. O2sat 89% on 45% FiO2 - increased FiO2 to 55% with good affect - O2 up to 93-94%. Lungs - right lower lobe fine crackles, low urine output from 7p-midnight - 45 ml. Awilda [employer]ARTMENT LEASING CONSULTANT made aware of urine output, 20mg IVP lasix ordered and given @ 0047. Tolerating vent settings - minimal inline secretions. Afebrile. Left hip dressing clean dry and intact as well.
[2020-11-28] MEDS: Ampicillin Sodium/Sulbactam Na 3 GM in 0.9 % Sodium Chloride 100 ML IV ×2 (05:09→17:02)
[2020-11-28 05:47] LABS: MANUAL DIFF FLAG NO
[2020-11-28 05:48] LABS: Basophils Percent Auto 0.1 % (0-2); Eosinophils Absolute Auto 0.1 X10*3/uL (0.0-0.4); Eosinophils Percent Auto 0.3 % (0-4); Hemoglobin 8.3 g/dl (12.0-16.0); Imm Gran Abs Auto 0.27 X10*3/uL (0.00-0.03); Imm Gran Pct Auto 1.4 % (0.0-0.4); Lymphocytes Absolute Auto 0.9 X10*3/uL (1.2-4.9); Lymphocytes Percent Auto 4.5 % (20-40); Mean Corpuscular HGB Conc 31.9 g/dl (31.0-35.0); Mean Corpuscular Hemoglobin 24.1 pg (27.0-33.0); Mean Corpuscular Volume 75.4 fL (80-98); Mean Platelet Volume 10.6 fL (9.4-12.3); Monocytes Absolute Auto 0.9 X10*3/uL (0.1-1.2); Monocytes Percent Auto 4.8 % (2-11); NRBC Pct Auto 0.7 /100WBC (0.0-0.2); Neutrophils Absolute Auto 16.8 X10*3/uL (2.0-8.3); Neutrophils Percent Auto 88.9 % (45-73); Platelet Count 273 X10*3/uL (160-400); Red Blood Count 3.45 X10*6/uL (4.20-5.50); Red Cell Distribution Width 25.3 % (11.0-16.0); White Blood Count 18.9 X10*3/uL (4.8-10.8)
[2020-11-28 05:49] LABS: VBG Base Excess -2.5 mmol/L; VBG HCO3 20 mmol/L (22-26); VBG pCO2 28 mmHg; VBG pH 7.46 (7.32-7.43); VBG pO2 152 mmHg
[2020-11-28 05:49] LABS: Venous Blood Gas Refer to POC result
[2020-11-28 06:19] LABS: Albumin Level 2.9 g/dL (3.5-5.0); Anion Gap 22 (12-20); Blood Urea Nitrogen 46 mg/dL (9-16); Calcium 7.5 mg/dL (8.4-10.2); Carbon Dioxide 17 mmol/L (22-29); Chloride 105 mmol/L (96-108); Creatinine Clr Calc Pharmacy 18.8; Estimated Glomerular Filt Rate 26; Glucose Random 158 mg/dL (60-115); Magnesium 1.9 mg/dL (1.6-2.6); Phosphorus 3.3 mg/dL (2.7-4.5); Potassium 4.2 mmol/L (3.3-5.1); Sodium 140 mmol/L (135-145)
[2020-11-28] MEDS: 0.9 % Sodium Chloride Flush 3 ML SYRINGE IVFLUSH ×3 (08:00→19:29)
[2020-11-28] MEDS: Hydroxychloroquine Sulfate 200 MG TABLET PO ×2 (08:00→19:28)
[2020-11-28] MEDS: Famotidine/PF 20 MG/2 ML VIAL IVPUSH (08:00)
[2020-11-28] MEDS: Chlorhexidine Gluc Oral Rinse 15 ML MOUTHWASH BUCCAL ×3 (08:00→19:28)
--- NOTE | 2020-11-28 09:51 | MHC.CLN ---
RE: CONSULT POSSIBLE EXTUBATION TODAY IF UNABLE TO EXTUBATE; RECOMMEND JEVITY AT MAX GOAL RATE 50CC/HR WITH 120CC FREE WATER Q 6 HRS PROVIDES 1272KCALS (1455KCALS WITH SEDATION; 25KCALS/KG), 53G PROTEIN (.9G/KG), 1482CC TOTAL WATER FROM FORMULA AND FLUSHES (26CC/KG) START TF JEVITY 1.0 AT 20CC/HR AND INCREASE BY 10CC/HR UNTIL MAX GOAL RATE IS REACHED MONITOR FOR TOLERANCE, RESIDUALS AND LYTES IF EXTUBATION SUCCESSFUL; CONSIDER JUNIOR QA ANALYST CONSULT FOR DIET CONSISTENCY FOLLOWING
--- NOTE | 2020-11-28 12:28 | PM.CCPN ---
Subjective Subjective Date of Service: 11/28/20 Interval History: 79-year-old lady with underlying history of rheumatoid arthritis on methotrexate, CLL, COPD, paroxysmal AFib on full dose anticoagulation, loculated left-sided pleural effusion, rheumatoid arthritis admitted on 11/17/2020 with left hip fracture after mechanical fall. Patient has had a left hip hemiarthroplasty on 11/21/2020. Her hospital course was complicated by progressive hypoxia likely secondary to chronic recurrent aspiration. On 11/26/2020 at approximately 5:00 a.m. patient was noted to be come bradycardic that further deteriorated into PEA cardiac arrest. CPR has been started, patient has been intubated during the CPR and returned spontaneous circulation has been achieved after 2 rounds of epinephrine. Patient has been transferred to intensive care unit. Overnight with diminishing urine output, likely secondary to ATN from the recent cardiopulmonary arrest. Failed pressure support trial today. Physical Exam Vital Signs: Vital Signs: Last Vital Signs Temp 98.2 F 11/28/20 12:00 Pulse 106 H 11/28/20 12:00 Resp 31 H 11/28/20 12:00 BP 125/63 11/28/20 12:00 Pulse Ox 92 11/28/20 12:00 Body Mass Index 23.3 Const: General: no acute distress and other (Sedated on the vent) Eyes: Sclerae: sclerae normal EOM: EOMs intact bilaterally Neck: Neck: Yes no lymphadenopathy, Yes trachea midline and Yes supple Resp: Auscultation: crackles (Bibasilar) Cardio: Rate: tachycardic Rhythm: regular rhythm Heart sounds: no gallops, no murmurs and no rubs GI: Palpation (GI): Soft to palpation and Other GI palpation findings present ( Nontender) Auscultation: normal bowel sounds Extrem: General: No clubbing, No cyanosis and Yes pedal edema (1+ bilateral) Objective Data Labs CBC & Chem 7: 11/28/20 05:26 11/28/20 05:26 Labs: Laboratory Results - last 24 hr 11/27/20 11/27/20 11/28/20 08:24 09:12 05:26 WBC 18.9 H RBC 3.45 L D Hgb 8.3 L D Hct 26.0 L D MCV 75.4 L D MCH 24.1 L MCHC 31.9 RDW 25.3 H Plt Count 273 MPV 10.6 Immature Gran % (Auto) 1.4 H Neut % (Auto) 88.9 H Lymph % (Auto) 4.5 L [place] % (Auto) 4.8 Eos % (Auto) 0.3 Baso % (Auto) 0.1 Lymph # (Auto) 0.9 L [place] # (Auto) 0.9 Eos # (Auto) 0.1 Baso # (Auto) 0.0 Abs Immat Gran (auto) 0.27 H Absolute Neuts (auto) 16.8 H Absolute Nucleated RBC 0.140 H Nucleated RBC % (auto) 0.7 H Smear Path Review SEE NOTE VBG pH VBG pCO2 VBG pO2 VBG HCO3 VBG O2 Saturation VBG Base Excess Sodium Potassium Chloride Carbon Dioxide Anion Gap BUN Creatinine Estim Creat Clear Calc Estimated GFR Random Glucose Calcium Phosphorus Magnesium Albumin Blood Type O Positive Antibody Screen NEGATIVE Crossmatch See Detail 11/28/20 11/28/20 05:26 05:43 WBC RBC Hgb Hct MCV MCH MCHC RDW Plt Count MPV Immature Gran % (Auto) Neut % (Auto) Lymph % (Auto) [place] % (Auto) Eos % (Auto) Baso % (Auto) Lymph # (Auto) [place] # (Auto) Eos # (Auto) Baso # (Auto) Abs Immat Gran (auto) Absolute Neuts (auto) Absolute Nucleated RBC Nucleated RBC % (auto) Smear Path Review VBG pH 7.46 H VBG pCO2 28 VBG pO2 152 VBG HCO3 20 L VBG O2 Saturation 99.0 VBG Base Excess -2.5 Sodium 140 Potassium 4.2 D Chloride 105 Carbon Dioxide 17 L Anion Gap 22 H BUN 46 H Creatinine 1.85 H Estim Creat Clear Calc 18.8 Estimated GFR 26 Random Glucose 158 H Calcium 7.5 L D Phosphorus 3.3 Magnesium 1.9 Albumin 2.9 L D Blood Type Antibody Screen Crossmatch Progress Note: A&P Assessment and plan (1) Cardiomyopathy: Status: Acute Assessment and Plan: Assessment: 79-year-old lady with underlying rheumatoid arthritis, CLL, COPD, paroxysmal AFib, chronic aspiration admitted with mechanical fall resulting in left hip fracture, now status post left hemiarthroplasty with hospital course further complicated by bradycardia/PEA cardiac arrest, now on ventilatory support. Plan: Neuro: Following commands with sedation vacation Cardiac: Bradycardia, likely secondary to hypoxemia, likely secondary to an aspiration event, resulting in cardiopulmonary arrest. Status post returned spontaneous circulation after 2 rounds of epinephrine. Intubated during the CPR. 2D echocardiogram with new wall motion abnormality. Takotsubo's versus new fixed defect. Cardiology service care appreciated. Initially started on heparin drip, but discontinued secondary to acute blood loss anemia. Pulmonary: Acute hypoxic respiratory failure, likely secondary to an aspiration event. Intubated during the CPR. Continue to titrate off ventilatory support as tolerated. Now with worsening FiO2 requirements secondary to worsening pulmonary edema on the background of worsening [place]/ATN. Renal: Acute renal failure, likely secondary to ATN from recent cardiopulmonary arrest, now oliguric. Continue to monitor renal indices and urine output. Endo: No acute issues. GI: No acute issues. ID: No evidence of severe sepsis or septic shock. Initially empirically covered for aspiration pneumonitis. Will discontinue antibiotics and monitor off antibiotics. Heme/Onc: Underlying CLL, unable to crush Ibrutinib to give via OG tube. Acute blood loss anemia, while on heparin drip, likely secondary to hemodilution and possible occult slow GI bleed. Heparin drip discontinued. Hemoglobin stabilized. Psych: No acute issues. Miscellaneous: Rheumatoid arthritis on Plaquenil and methotrexate. Prophylaxis: Intermittent pneumatic compression,, famotidine Diet: Tube feeds Critical care time spent: 60 minutes (2) Acute blood loss anemia: Status: Acute (3) Rheumatoid arthritis: Status: Acute (4) Acute kidney injury: Status: Acute (5) Aspiration pneumonitis: Status: Acute (6) Paroxysmal A-fib: Status: Acute (7) CLL (chronic lymphocytic leukemia): Status: Acute (8) Cardiopulmonary arrest: Status: Acute Time Spent With Patient Total time spent with greater than 50% in coordination of care (as documented) at patient's floor/unit and/or counseling patient:: 0 Critical Care Time Critical Care Time (minutes): 60
--- NOTE | 2020-11-28 12:37 | P.PNCA_ITS ---
Subjective Subjective Date of Service: 11/28/20 Interval history: 79-year-old female with aspiration pneumonia, hypoxia, NSTEMI and significant wall motion abnormalities on echocardiogram consistent with multivessel disease versus takotsubo cardiomyopathy. She is still sedated and vented right now. Creatinine has been worse. Review of Systems Review of Systems Yes unobtainable due to endotracheal tube Physical Exam Vital Signs: Last Vital Signs Temp 98.2 F 11/28/20 12:00 Pulse 106 H 11/28/20 12:00 Resp 31 H 11/28/20 12:00 BP 125/63 11/28/20 12:00 Pulse Ox 92 11/28/20 12:00 Body Mass Index 23.3 GENERAL APPEARANCE: in no acute distress, sedated and ventilated. HEENT: unremarkable. HEAD: normocephalic, atraumatic. NECK/THYROID: no carotid bruit, no jugular venous distention. SKIN: no suspicious lesions, warm and dry. Left hip wound dressed. HEART: no murmurs, regular rate and rhythm, S1, S2 normal. Tachycardic. LUNGS: clear to auscultation anteriorly. ABDOMEN: normal, bowel sounds present, soft, nondistended. EXTREMITIES: no clubbing, cyanosis, or edema. NEUROLOGIC: Currently sedated and vented. Results Labs and Meds Result diagrams: 11/28/20 05:26 11/28/20 05:26 Lab results: Laboratory Results - last 24 hr 11/27/20 11/27/20 11/28/20 08:24 09:12 05:26 WBC 18.9 H RBC 3.45 L D Hgb 8.3 L D Hct 26.0 L D MCV 75.4 L D MCH 24.1 L MCHC 31.9 RDW 25.3 H Plt Count 273 MPV 10.6 Immature Gran % (Auto) 1.4 H Neut % (Auto) 88.9 H Lymph % (Auto) 4.5 L [place] % (Auto) 4.8 Eos % (Auto) 0.3 Baso % (Auto) 0.1 Lymph # (Auto) 0.9 L [place] # (Auto) 0.9 Eos # (Auto) 0.1 Baso # (Auto) 0.0 Abs Immat Gran (auto) 0.27 H Absolute Neuts (auto) 16.8 H Absolute Nucleated RBC 0.140 H Nucleated RBC % (auto) 0.7 H Smear Path Review SEE NOTE VBG pH VBG pCO2 VBG pO2 VBG HCO3 VBG O2 Saturation VBG Base Excess Sodium Potassium Chloride Carbon Dioxide Anion Gap BUN Creatinine Estim Creat Clear Calc Estimated GFR Random Glucose Calcium Phosphorus Magnesium Albumin Blood Type O Positive Antibody Screen NEGATIVE Crossmatch See Detail 11/28/20 11/28/20 05:26 05:43 WBC RBC Hgb Hct MCV MCH MCHC RDW Plt Count MPV Immature Gran % (Auto) Neut % (Auto) Lymph % (Auto) [place] % (Auto) Eos % (Auto) Baso % (Auto) Lymph # (Auto) [place] # (Auto) Eos # (Auto) Baso # (Auto) Abs Immat Gran (auto) Absolute Neuts (auto) Absolute Nucleated RBC Nucleated RBC % (auto) Smear Path Review VBG pH 7.46 H VBG pCO2 28 VBG pO2 152 VBG HCO3 20 L VBG O2 Saturation 99.0 VBG Base Excess -2.5 Sodium 140 Potassium 4.2 D Chloride 105 Carbon Dioxide 17 L Anion Gap 22 H BUN 46 H Creatinine 1.85 H Estim Creat Clear Calc 18.8 Estimated GFR 26 Random Glucose 158 H Calcium 7.5 L D Phosphorus 3.3 Magnesium 1.9 Albumin 2.9 L D Blood Type Antibody Screen Crossmatch Progress Note: A&P Assessment and plan (1) Cardiomyopathy: Status: Acute (2) NSTEMI (non-ST elevated myocardial infarction): Status: Acute (3) Acute kidney injury: Status: Acute Assessment and Plan: 79-year-old female with aspiration and hypoxia leading to type 2 PA. Echocardiography showing changes consistent multivessel disease versus takotsubo cardiomyopathy. I think the likely thing is takotsubo cardiomyopathy. She is off pressors at this stage. She has kidney injury due to ischemia. I think we should repeat an echocardiogram on her tomorrow to assess LV and to assess the cardiac apex for the ?? thrombus. Hemoglobin is stable right now. She is off anticoagulation. She has paroxysmal atrial fibrillation and previously was on Eliquis. This can be reassessed as she improves. She probably will require ischemic evaluation at some stage depending on her clinical situation. Son was updated at bedside and I had detailed discussion was done with him. Thank you for allowing me to participate in the care of your patient. Please feel free to contact me if you have any questions. Fall Risk Details Current Medications: Current Medications Generic Name Dose Route Start Last Admin Trade Name Freq PRN Reason Stop Dose Admin Acetaminophen 650 mg 11/26/20 12:46 Acetaminophen Oral Liquid 650 Mg/20.3 Ml Solution PO Q6H PRN Pain, Mild (Pain Scale 1-3) Chlorhexidine Gluconate 15 ml 11/26/20 15:00 11/28/20 08:00 Chlorhexidine Gluc Oral Rinse 15 Ml Mouthwash BUCCAL 15 ml TID SHRUTI Administration Famotidine 20 mg 11/27/20 09:00 11/28/20 08:00 Famotidine/Pf 20 Mg/2 Ml Vial IVPUSH 20 mg DAILY SHRUTI Administration Fentanyl 50 mcg 11/27/20 10:51 Fentanyl Citrate/Pf 100 Mcg/2 Ml Vial IVPUSH Q2H PRN Pain, Moderate (Pain Scale 4-6 Hydroxychloroquine Sulfate 200 mg 11/17/20 09:00 11/28/20 08:00 Hydroxychloroquine Sulfate 200 Mg Tablet PO 200 mg BID SHRUTI Administration Propofol 1,000 mg in 100 mls @ 0 mls/hr 11/26/20 06:00 11/28/20 11:58 Diprivan IVCONT 20 mcg/kg/min .Q0M SHRUTI 6.95 mls/hr Titration Protocol Per Protocol Norepinephrine Bitartrate 8 mg in 250 mls @ 0 mls/hr 11/26/20 07:00 11/27/20 02:45 Levophed IVCONT 0 mcg/kg/min .Q0M SHRUTI 0 mls/hr Titration Protocol Per Protocol Phenylephrine HCl 20 mg/ 252 mls @ 0 mls/hr 11/26/20 07:00 11/26/20 09:00 Dextrose IVCONT 0 mcg/kg/min .Q0M SHRUTI 0 mls/hr Titration Protocol Per Protocol Ampicillin Sodium/Sulbactam 100 mls @ 200 mls/hr 11/28/20 18:00 Sodium 3 gm/ Sodium Chloride IV Q12H SHRUTI Methotrexate 20 mg 11/17/20 00:45 Methotrexate Sodium 2.5 Mg Tablet PO QWEEK [facility] Pat Own Med - 1 each 11/25/20 14:30 11/28/20 08:16 Ibrutinib [Imbruvica PO Not Given ] 420 Mg Tablet DAILY SHRUTI Sodium Chloride 3 ml 11/17/20 08:00 11/28/20 08:00 0.9 % Sodium Chloride Flush 3 Ml Syringe IVFLUSH 3 ml QSHIFT SHRUTI Administration Time Spent With Patient Time: Total time spent is greater than 50% in coordination of care (as documented) at patient's floor/unit and/or counseling patient: Time with patient: 15 - 24 minutes
--- NOTE | 2020-11-28 15:16 | MHC.CM.PN ---
Pt continues in ICU intubated. Now presenting with ARF and possible aspiration. Will start tube feedings. Pt has been referred to [facility] for STR however, this was following her hip ORIF. Her needs may exceed facility capabilities. CM will follow for d/c planning
[2020-11-28] MEDS: propofoL 1,000 MG/100 ML VIAL 6.95 MG IVCONT (16:06)
--- NOTE | 2020-11-28 18:43 | PC.NURSE ---
SEDATION VACATION STARTED AT 0937 WITH PROPOFOL TURNED OFF. VENT SETTINGS CHANGED TO PSV 20/5 AT 1040 AND CHANGED BACK TO AC SETTINGS AT 1044, 02 DROPPED TO LOW 80S, AND UNABLE TO MAINTAIN TV. SEDATION RESUMED AT 1159. CURRENT VENT SETTINGS: AC 16 TV 400 PEEP 5 FI02 40%. 02 GOAL > 88% PER MD. TUBE FEEDS STARTED AT 0945 WITH JEVITY 20, CURRENT AT 40 ML/HR. FWF 120 ML Q6HR GIVEN. URINE OUTPUT FROM 7541-7816: 43 ML TOTAL. BM X 2, SMALL, DARK GREEN AND HARD. SON CALLUM UPDATED AT BEDSIDE BY RN AND MD. SON MADE A VISITOR ALLOWED LIST AND IS AT TOPOGRAPHICAL DRAFTER DESK. Q2HR REPO, SIZEWISE BED, MARQUISE CREAM, PREVALON, PILLOWS AND BOOTIES USED.
[2020-11-29] VITALS (32 sets, daily range): BP systolic 77–140; BP diastolic 36–84; PULSE 95–116; RESP 14–36; TEMP 36.7–37.2; O2SAT 89–100
[2020-11-29] MEDS: propofoL 1,000 MG/100 ML VIAL 13.9 MG IVCONT (00:07)
[2020-11-29] MEDS: fentaNYL citrate/PF 100 MCG/2 ML VIAL 50 MCG IVPUSH ×2 (02:14→04:46)
[2020-11-29] MEDS: Ampicillin Sodium/Sulbactam Na 3 GM in 0.9 % Sodium Chloride 100 ML IV (05:31)
[2020-11-29] MEDS: propofoL 1,000 MG/100 ML VIAL 17.37 MG IVCONT (05:31)
[2020-11-29 05:51] LABS: VBG Base Excess -3.8 mmol/L; VBG HCO3 19 mmol/L (22-26); VBG pCO2 29 mmHg; VBG pH 7.42 (7.32-7.43); VBG pO2 47 mmHg
[2020-11-29 06:18] LABS: Basophils Percent Auto 0.1 % (0-2); Eosinophils Absolute Auto 0.1 X10*3/uL (0.0-0.4); Eosinophils Percent Auto 0.6 % (0-4); Hematocrit 25.6 % (37-47); Hemoglobin 8.1 g/dl (12.0-16.0); Imm Gran Abs Auto 0.23 X10*3/uL (0.00-0.03); Imm Gran Pct Auto 1.5 % (0.0-0.4); Lymphocytes Absolute Auto 0.6 X10*3/uL (1.2-4.9); MANUAL DIFF FLAG SCAN; Mean Corpuscular HGB Conc 31.6 g/dl (31.0-35.0); Mean Corpuscular Hemoglobin 24.1 pg (27.0-33.0); Mean Corpuscular Volume 76.2 fL (80-98); Mean Platelet Volume 10.5 fL (9.4-12.3); Monocytes Absolute Auto 0.7 X10*3/uL (0.1-1.2); Monocytes Percent Auto 4.9 % (2-11); NRBC Pct Auto 0.5 /100WBC (0.0-0.2); Neutrophils Absolute Auto 13.4 X10*3/uL (2.0-8.3); Neutrophils Percent Auto 88.9 % (45-73); Platelet Count 197 X10*3/uL (160-400); Red Blood Count 3.36 X10*6/uL (4.20-5.50); Red Cell Distribution Width 25.5 % (11.0-16.0); SCAN SMEAR FLAG 1
[2020-11-29 06:19] LABS: Venous Blood Gas Refer to POC result
[2020-11-29 06:46] LABS: Alanine Aminotransferase 18 U/L (0-31); Albumin Level 2.6 g/dL (3.5-5.0); Alkaline Phosphatase 293 U/L (39-117); Anion Gap 20 (12-20); Aspartate Amino Transferase 25 U/L (5-31); Bilirubin Total 0.8 mg/dL (0.0-1.0); Blood Urea Nitrogen 61 mg/dL (9-16); Calcium 7.6 mg/dL (8.4-10.2); Carbon Dioxide 18 mmol/L (22-29); Chloride 105 mmol/L (96-108); Creatinine Clr Calc Pharmacy 12.6; Estimated Glomerular Filt Rate 16; Glucose Random 141 mg/dL (60-115); Magnesium 1.9 mg/dL (1.6-2.6); Phosphorus 3.5 mg/dL (2.7-4.5); Potassium 4.6 mmol/L (3.3-5.1); Sodium 138 mmol/L (135-145); Total Protein 4.3 g/dL (6.5-8.0)
[2020-11-29 07:19] LABS: SLIDE REVIEW VERIFIED
[2020-11-29] MEDS: Hydroxychloroquine Sulfate 200 MG TABLET PO ×2 (10:00→20:49)
[2020-11-29] MEDS: Famotidine/PF 20 MG/2 ML VIAL IVPUSH (10:00)
[2020-11-29] MEDS: Chlorhexidine Gluc Oral Rinse 15 ML MOUTHWASH BUCCAL ×3 (10:00→20:49)
--- NOTE | 2020-11-29 10:00 | CA_ITS ---
Transthoracic Echocardiogram Patient (Last, First, Middle): Selene Parra E Gender: Female Date of : 1940 Age: 79 Procedure Date: 11/29/2020 Procedure Type: Transthoracic Echocardiogram Location: ICU Height: 157.48 cm Weight: 57.61 kg BSA: 1.58 m2 Heart Rate: bpm BP: 100 / 56 mmHg Bead Wire Taper: KARLEE Referring MD: Ruy Cruz MD Symptoms: Takotsubo vs anterior wall abnormality Study Quality: Fair/contrast Conclusions: - Normal left ventricular size and systolic function. - Elevated filling pressures. - Normal right ventricular cavity size and systolic function. - No evidence of apical thrombus. Findings Procedure Information Contrast agent, definity, is being given per protocol without apparent complications. Left Ventricle Normal left ventricular size and systolic function. There is mildly increased left ventricular wall thickness. The visually estimated ejection fraction is between 55-60%. There is no evidence of regional wall motion abnormalities. Abnormal diastolic function is noted. Spectral Doppler is indicative of an impaired relaxation filling pattern. Elevated filling pressures. Right Ventricle Normal right ventricular cavity size and systolic function. Prior Study Comparison Significant changes compared to prior study dated: 11/26/2020. EF has improved back to normal. No evidence of apical thrombus. Measurements 2D Linear Measurements IVSd: 0.95 0.6-0.9/0.6-1.0 cm LVIDd: 3.40 3.9-5.3/4.2-5.9 cm LVIDd Index: 2.15 2.4-3.2/2.2-3.1 cm/m2 LVIDs: 2.20 2.0-3.6 cm LVPWd: 1.00 0.7-1.1 cm LV Mass: 118.02 67-162/88-224 g LV Mass Index: 74.70 43-95/49-115 g/m2 Mitral Valve MV Pk E: 0.97 MV PK A: 1.71 MV Decel Time: 134.00 E/A: 0.60 E'Lateral: 4.93 E'Medial: 5.03 E/E' Med: 19.20 E/E' Lat: 19.60 PHT: 39.00 MVA PHT: 5.64 Decel [place]: 7.24 Diastolic Function MV Pk E: 0.97 MV Pk A: 1.71 E/A: 0.60 E'Medial: 5.03 E/E' Med: 19.20 E' Laterial: 4.93 E/E' Lat: 19.60 Updated in Other Vendor System with Status of Final Ellis Medina MD electronically signed on 11/29/2020 5:39:54 PM with status of Final
[2020-11-29] MEDS: propofoL 1,000 MG/100 ML VIAL 10.42 MG IVCONT (11:29)
[2020-11-29] MEDS: 0.9 % Sodium Chloride Flush 3 ML SYRINGE IVFLUSH ×3 (11:30→20:49)
[2020-11-29] MEDS: fentaNYL citrate/NS 1,000 MCG/100 ML PLAST..BAG 2 MCG IVCONT (11:31)
--- NOTE | 2020-11-29 13:12 | PM.CCPN ---
Subjective Subjective Date of Service: 11/29/20 Interval History: 79-year-old lady with underlying history of rheumatoid arthritis on methotrexate, CLL, COPD, paroxysmal AFib on full dose anticoagulation, loculated left-sided pleural effusion, rheumatoid arthritis admitted on 11/17/2020 with left hip fracture after mechanical fall. Patient has had a left hip hemiarthroplasty on 11/21/2020. Her hospital course was complicated by progressive hypoxia likely secondary to chronic recurrent aspiration. On 11/26/2020 at approximately 5:00 a.m. patient was noted to be come bradycardic that further deteriorated into PEA cardiac arrest. CPR has been started, patient has been intubated during the CPR and returned spontaneous circulation has been achieved after 2 rounds of epinephrine. Patient has been transferred to intensive care unit. Post code patient is arousable with sedation vacation. Patient developed DENTON likely secondary to ATN with oliguria and anterior wall changes on initial echocardiogram. No events overnight. Remains oliguric. Physical Exam Vital Signs: Vital Signs: Last Vital Signs Temp 98.4 F 11/29/20 13:00 Pulse 107 H 11/29/20 13:00 Resp 34 H 11/29/20 13:00 BP 140/73 H 11/29/20 13:00 Pulse Ox 89 L 11/29/20 13:00 Body Mass Index 23.3 Const: General: no acute distress and other (Sedated on the vent) Eyes: Sclerae: sclerae normal EOM: EOMs intact bilaterally Neck: Neck: Yes no lymphadenopathy, Yes trachea midline and Yes supple Resp: Effort & Inspection: normal respiratory effort and no respiratory distress Auscultation: clear to auscultation bilaterally Cardio: Rate: tachycardic Rhythm: regular rhythm Heart sounds: no gallops, no murmurs and no rubs GI: Palpation (GI): Soft to palpation and Other GI palpation findings present ( Nontender) Auscultation: normal bowel sounds Extrem: General: No clubbing, No cyanosis and Yes pedal edema (Trace bilateral) Objective Data Labs CBC & Chem 7: 11/29/20 05:45 11/29/20 05:45 Labs: Laboratory Results - last 24 hr 11/29/20 11/29/20 11/29/20 05:45 05:45 05:45 WBC 15.0 H RBC 3.36 L Hgb 8.1 L Hct 25.6 L MCV 76.2 L MCH 24.1 L MCHC 31.6 RDW 25.5 H Plt Count 197 D MPV 10.5 Immature Gran % (Auto) 1.5 H Neut % (Auto) 88.9 H Lymph % (Auto) 4.0 L [place] % (Auto) 4.9 Eos % (Auto) 0.6 Baso % (Auto) 0.1 Lymph # (Auto) 0.6 L [place] # (Auto) 0.7 Eos # (Auto) 0.1 Baso # (Auto) 0.0 Abs Immat Gran (auto) 0.23 H Absolute Neuts (auto) 13.4 H Absolute Nucleated RBC 0.070 H Nucleated RBC % (auto) 0.5 H Smear Tech's Comments VERIFIED VBG pH 7.42 VBG pCO2 29 VBG pO2 47 VBG HCO3 19 L VBG O2 Saturation 74.0 VBG Base Excess -3.8 Sodium 138 Potassium 4.6 Chloride 105 Carbon Dioxide 18 L Anion Gap 20 BUN 61 H Creatinine 2.76 H Estim Creat Clear Calc 12.6 Estimated GFR 16 Random Glucose 141 H Calcium 7.6 L Phosphorus 3.5 Magnesium 1.9 Total Bilirubin 0.8 AST 25 ALT 18 Alkaline Phosphatase 293 H Total Protein 4.3 L Albumin 2.6 L Progress Note: A&P Assessment and plan (1) Cardiomyopathy: Status: Acute Assessment and Plan: Assessment: 79-year-old lady with underlying rheumatoid arthritis, CLL, COPD, paroxysmal AFib, chronic aspiration admitted with mechanical fall resulting in left hip fracture, now status post left hemiarthroplasty with hospital course further complicated by bradycardia/PEA cardiac arrest, now on ventilatory support. Plan: Neuro: Following commands with sedation vacation Cardiac: Bradycardia, likely secondary to hypoxemia, likely secondary to an aspiration event, resulting in cardiopulmonary arrest. Status post returned spontaneous circulation after 2 rounds of epinephrine. Intubated during the CPR. Initial 2D echocardiogram with new wall motion abnormality. Takotsubo's versus new fixed defect. Cardiology service care appreciated. Initially started on heparin drip, but discontinued secondary to acute blood loss anemia. Follow-up 2D echocardiogram is pending. Pulmonary: Acute hypoxic respiratory failure, likely secondary to an aspiration event. Intubated during the CPR. Continue to titrate off ventilatory support as tolerated. Renal: Acute renal failure, likely secondary to ATN from recent cardiopulmonary arrest, now oliguric. Continue to monitor renal indices and urine output. Endo: No acute issues. GI: No acute issues. ID: No evidence of severe sepsis or septic shock. Initially empirically covered for aspiration pneumonitis. Will discontinue antibiotics and monitor off antibiotics. Heme/Onc: Underlying CLL, unable to crush Ibrutinib to give via OG tube. Acute blood loss anemia, while on heparin drip, likely secondary to hemodilution and possible occult slow GI bleed. Heparin drip discontinued. Hemoglobin stabilized. Psych: No acute issues. Miscellaneous: Rheumatoid arthritis on Plaquenil and methotrexate. Prophylaxis: Intermittent pneumatic compression,, famotidine Diet: Tube feeds Critical care time spent: 60 minutes (2) Acute blood loss anemia: Status: Acute (3) Rheumatoid arthritis: Status: Acute (4) Acute kidney injury: Status: Acute (5) Regional wall motion abnormality of heart: Status: Acute (6) Aspiration pneumonitis: Status: Acute (7) Paroxysmal A-fib: Status: Acute (8) CLL (chronic lymphocytic leukemia): Status: Acute (9) Cardiopulmonary arrest: Status: Acute (10) Closed hip fracture: Status: Acute Time Spent With Patient Total time spent with greater than 50% in coordination of care (as documented) at patient's floor/unit and/or counseling patient:: 0 Critical Care Time Critical Care Time (minutes): 60
--- NOTE | 2020-11-29 14:54 | MHC.CM.PN ---
Pt remains in ICU on ventilatory support following cardiac arrest requiring CPR. Pt is also s/p right hip ORIF d/t fall. Original d/c plan was for transfer to [facility] for STR/ortho rehab. This is dependent on pt's ability to wean and make meaningful progress to participate in PT eval. Family has been updated on d/c plan. CM will continue to follow.
--- NOTE | 2020-11-29 19:56 | PC.NURSE ---
ASSUMED CARE AT 0700. PATIENT WAS AROUASBLE TO DEEP PAIN, PUPILS AT 2 MM, SLUGGISH; POSITIVE COUGH AND GAG; WAS ON 50 MCG/KG/MIN OF PROPOFOL; WAS TACHYPNEIC RR 35; AND DICUSSED WITH MD, NEW ORDERS TO TITRATE OFF PROPOFOL AND TO START FENTANYL GTT; THIS WAS DONE WITH GOOD EFFECT: RR AROUND LOW 20'S. PROPOFOL OFF AND FENTANYL WAS UP TO 80, NOW DOWN TO 50 MCG/KG/MIN, AND SHE IS TRACKING SLIGHTLY, PUPILS 3 MM AND REACTIVE/SLUGGISH, WAS PULLING ON RESTRAINT SOME. CONTINUES INTUBATED WITH #7.5 ETT, 23 CM ELIZABETH; AC 16; TV 400; FIO2 UPTITIRATED TO 50% PER RT; PEEP 5. MINUTE VOLUMES ABOUT 11-14. ETCO2 LOW AROUND 18; MD AWARE. FIO2 WAS TITIRATED PER SPO2 GOAL OF 88%; PATIENT DROPPED SPO2 TO 86% AFTER REPOSITIONING, WAS SUCTIONED INLINE WITH NO SECRETIONS--EARLIER TODAY SCANT CALABRESE TO CREAM TO CLEAR INLINE THICK SECRETIONS. TF WELL TOLERATED, H2O FLUSHES CHANGED TO 120 CCS Q 8 HOURS FROM Q6 HOURS PER MD. SURGEON IN TO ASSESS PATIENT THIS MORNING. PATIENT WITH SMALL AMOUNT OF GREENISH DARK STOOL TODAY 3 BMS NOTED; DISCUSSED WITH MANAGER PRODUCT SUPPORT THIS EVENING AND NO NEED TO CHECK C-DIFF/OB STOOL AT THIS TIME. .
[2020-11-30] VITALS (30 sets, daily range): BP systolic 100–171; BP diastolic 46–86; PULSE 88–109; RESP 18–30; TEMP 36.7–37.2; O2SAT 87–97
[2020-11-30] MEDS: fentaNYL citrate/NS 1,000 MCG/100 ML PLAST..BAG 5 MCG IVCONT (02:56)
[2020-11-30 05:39] LABS: VBG Base Excess -5.8 mmol/L; VBG HCO3 19 mmol/L (22-26); VBG pCO2 35 mmHg; VBG pH 7.33 (7.32-7.43); VBG pO2 66 mmHg
[2020-11-30 06:25] LABS: Basophils Percent Auto 0.1 % (0-2); Hemoglobin 8.3 g/dl (12.0-16.0); Lymphocytes Percent Auto 3.8 % (20-40); MANUAL DIFF FLAG SCAN; NRBC Pct Auto 0.3 /100WBC (0.0-0.2); SCAN SMEAR FLAG 1
[2020-11-30 06:27] LABS: Eosinophils Absolute Auto 0.3 X10*3/uL (0.0-0.4); Eosinophils Percent Auto 1.8 % (0-4); Hematocrit 27.5 % (37-47); Imm Gran Pct Auto 1.3 % (0.0-0.4); Lymphocytes Absolute Auto 0.6 X10*3/uL (1.2-4.9); Mean Corpuscular HGB Conc 30.2 g/dl (31.0-35.0); Mean Corpuscular Hemoglobin 23.2 pg (27.0-33.0); Mean Corpuscular Volume 76.8 fL (80-98); Mean Platelet Volume 11.1 fL (9.4-12.3); Monocytes Absolute Auto 1.1 X10*3/uL (0.1-1.2); Monocytes Percent Auto 7.2 % (2-11); Neutrophils Absolute Auto 13.2 X10*3/uL (2.0-8.3); Neutrophils Percent Auto 85.8 % (45-73); Platelet Count 178 X10*3/uL (160-400); Red Blood Count 3.58 X10*6/uL (4.20-5.50); Red Cell Distribution Width 26.7 % (11.0-16.0); White Blood Count 15.4 X10*3/uL (4.8-10.8)
[2020-11-30 06:28] LABS: PLT ABN DIST 1
[2020-11-30 06:53] LABS: SLIDE REVIEW VERIFIED
[2020-11-30 06:54] LABS: Albumin Level 2.6 g/dL (3.5-5.0); Blood Urea Nitrogen 78 mg/dL (9-16); Calcium 7.6 mg/dL (8.4-10.2); Creatinine Clr Calc Pharmacy 9.9; Estimated Glomerular Filt Rate 12; Glucose Random 126 mg/dL (60-115); Phosphorus 4.4 mg/dL (2.7-4.5)
[2020-11-30 07:14] LABS: Venous Blood Gas Refer to POC result
[2020-11-30 07:25] LABS: Anion Gap 18 (12-20); Carbon Dioxide 20 mmol/L (22-29); Chloride 102 mmol/L (96-108); Potassium 5.3 mmol/L (3.3-5.1); Sodium 135 mmol/L (135-145)
[2020-11-30] MEDS: Hydroxychloroquine Sulfate 200 MG TABLET PO ×2 (09:15→21:31)
[2020-11-30] MEDS: Famotidine/PF 20 MG/2 ML VIAL IVPUSH (09:15)
[2020-11-30] MEDS: Chlorhexidine Gluc Oral Rinse 15 ML MOUTHWASH BUCCAL ×3 (09:15→21:30)
[2020-11-30] MEDS: 0.9 % Sodium Chloride Flush 3 ML SYRINGE IVFLUSH ×2 (09:15→14:03)
[2020-11-30] MEDS: Lactulose 20 GM/30 ML SOLUTION 30 GM PO (10:09)
[2020-11-30] MEDS: Heparin Sodium,Porcine 5,000 UNIT/ML VIAL 5000 UNIT SUBCUT ×2 (10:15→18:04)
--- NOTE | 2020-11-30 11:01 | MHC.CLN ---
F/U PT RECEIVING JEVITY 1.0 AT MAX GOAL RATE 50CC/HR WITH 120CC FREE WATER Q 8 HRS PROVIDES 1272KCALS, 53G PROTEIN (.9G/KG), 1362CC TOTAL WATER FROM FORMULA AND FLUSHES (23CC/KG) TOLERATING PER NSG MONITOR FOR TOLERANCE, RESIDUALS AND LYTES FOLLOWING
--- NOTE | 2020-11-30 15:26 | PM.CCPN ---
Subjective Subjective Date of Service: 11/30/20 Interval History: 79-year-old lady with underlying history of rheumatoid arthritis on methotrexate, CLL, COPD, paroxysmal AFib on full dose anticoagulation, loculated left-sided pleural effusion, rheumatoid arthritis admitted on 11/17/2020 with left hip fracture after mechanical fall. Patient has had a left hip hemiarthroplasty on 11/21/2020. Her hospital course was complicated by progressive hypoxia likely secondary to chronic recurrent aspiration. On 11/26/2020 at approximately 5:00 a.m. patient was noted to be come bradycardic that further deteriorated into PEA cardiac arrest. CPR has been started, patient has been intubated during the CPR and returned spontaneous circulation has been achieved after 2 rounds of epinephrine. Patient has been transferred to intensive care unit. Post code patient is arousable with sedation vacation. Patient developed DENTON likely secondary to ATN with oliguria and anterior wall changes on initial echocardiogram. Wall motion abnormalities and EF improved on follow-up echocardiogram. No events overnight. Urine output slowly improving. Physical Exam Vital Signs: Vital Signs: Last Vital Signs Temp 98.4 F 11/30/20 15:14 Pulse 99 11/30/20 15:14 Resp 22 H 11/30/20 15:14 BP 127/66 11/30/20 15:14 Pulse Ox 93 11/30/20 15:14 Body Mass Index 23.3 Const: General: no acute distress and other (Sedated on the vent, follows commands with sedation vacation.) Eyes: Sclerae: sclerae normal EOM: EOMs intact bilaterally Neck: Neck: Yes no lymphadenopathy, Yes trachea midline and Yes supple Resp: Auscultation: crackles (Bibasilar) Cardio: Rate: regular rate Rhythm: regular rhythm Heart sounds: no gallops, no murmurs and no rubs GI: Palpation (GI): Soft to palpation and Other GI palpation findings present ( Nontender) Auscultation: normal bowel sounds Extrem: General: No clubbing, No cyanosis and Yes pedal edema (1+ bilateral) Objective Data Labs CBC & Chem 7: 11/30/20 05:30 11/30/20 05:30 Labs: Laboratory Results - last 24 hr 11/30/20 11/30/20 11/30/20 05:30 05:30 05:33 WBC 15.4 H RBC 3.58 L Hgb 8.3 L Hct 27.5 L MCV 76.8 L MCH 23.2 L MCHC 30.2 L RDW 26.7 H Plt Count 178 MPV 11.1 Immature Gran % (Auto) 1.3 H Neut % (Auto) 85.8 H Lymph % (Auto) 3.8 L [place] % (Auto) 7.2 Eos % (Auto) 1.8 Baso % (Auto) 0.1 Lymph # (Auto) 0.6 L [place] # (Auto) 1.1 Eos # (Auto) 0.3 Baso # (Auto) 0.0 Abs Immat Gran (auto) 0.20 H Absolute Neuts (auto) 13.2 H Absolute Nucleated RBC 0.040 H Nucleated RBC % (auto) 0.3 H Smear Tech's Comments VERIFIED VBG pH 7.33 VBG pCO2 35 VBG pO2 66 VBG HCO3 19 L VBG O2 Saturation 88.0 VBG Base Excess -5.8 Sodium 135 Potassium 5.3 H Chloride 102 Carbon Dioxide 20 L Anion Gap 18 BUN 78 H Creatinine 3.53 H Estim Creat Clear Calc 9.9 Estimated GFR 12 Random Glucose 126 H Calcium 7.6 L Phosphorus 4.4 Magnesium 2.0 Albumin 2.6 L Progress Note: A&P Assessment and plan (1) Rheumatoid arthritis: Status: Acute Assessment and Plan: Assessment: 79-year-old lady with underlying rheumatoid arthritis, CLL, COPD, paroxysmal AFib, chronic aspiration admitted with mechanical fall resulting in left hip fracture, now status post left hemiarthroplasty with hospital course further complicated by bradycardia/PEA cardiac arrest, now on ventilatory support. Plan: Neuro: Following commands with sedation vacation Cardiac: Bradycardia, likely secondary to hypoxemia, likely secondary to an aspiration event, resulting in cardiopulmonary arrest. Status post returned spontaneous circulation after 2 rounds of epinephrine. Intubated during the CPR. Initial 2D echocardiogram with new wall motion abnormality. Takotsubo's versus new fixed defect. Cardiology service care appreciated. Initially started on heparin drip, but discontinued secondary to acute blood loss anemia. Follow-up 2D echocardiogram with normalization of the wall motion. Pulmonary: Acute hypoxic respiratory failure, likely secondary to an aspiration event. Intubated during the CPR. Continue to titrate off ventilatory support as tolerated. Renal: Acute renal failure, likely secondary to ATN from recent cardiopulmonary arrest, now oliguric, improving slowly. Continue to monitor renal indices and urine output. Endo: No acute issues. GI: No acute issues. ID: No evidence of severe sepsis or septic shock. Initially empirically covered for aspiration pneumonitis. Continue to monitor off antibiotics. Heme/Onc: Underlying CLL, unable to crush Ibrutinib to give via OG tube. Acute blood loss anemia, while on heparin drip, likely secondary to hemodilution and possible occult slow GI bleed. Heparin drip discontinued. Hemoglobin stabilized. Psych: No acute issues. Miscellaneous: Rheumatoid arthritis on Plaquenil and methotrexate. Prophylaxis: Intermittent pneumatic compression,, famotidine Diet: Tube feeds Critical care time spent: 60 minutes (2) Acute kidney injury: Status: Acute (3) Regional wall motion abnormality of heart: Status: Acute (4) Aspiration pneumonitis: Status: Acute (5) Paroxysmal A-fib: Status: Acute (6) CLL (chronic lymphocytic leukemia): Status: Acute (7) Closed hip fracture: Status: Acute Time Spent With Patient Total time spent with greater than 50% in coordination of care (as documented) at patient's floor/unit and/or counseling patient:: 0 Critical Care Time Critical Care Time (minutes): 60
--- NOTE | 2020-11-30 17:13 | PC.NURSE ---
S/E Afebrile On Fentanyl gtt Arousable to tactile stimuli ; Pupils 3mm, sluggish Positive cough & gag Failed sedation vacation - Followed commands ; Tachypnic, HR 110's SR/ST, no ectopy L IJ TLC dressing changed, patent Restarted on Heparin q8 for DVT 1-2+ lower extremity edema - MD aware LS dim bilat bases 7.5 ETT 23cm @ lip, Vent settings: AC16/400/5/55% Thick espinal inline secretions Tolerating tube feeds well Small mucousy BM, green Urine o/p 10-15cc/hr Bun & Creat 78/3.53 - MD aware Redness to buttocks, blanchable Air loss bed in place, repo q2hr, Prevlon pad in place Small old stainage to hip dressing Bathed ; Family updated
[2020-11-30] MEDS: fentaNYL citrate/NS 1,000 MCG/100 ML PLAST..BAG 7.5 MCG IVCONT (21:41)
[2020-12-01] VITALS (33 sets, daily range): BP systolic 92–141; BP diastolic 37–69; PULSE 80–102; RESP 17–28; TEMP 35.3–37.1; O2SAT 86–903
[2020-12-01] MEDS: Heparin Sodium,Porcine 5,000 UNIT/ML VIAL 5000 UNIT SUBCUT ×3 (03:12→17:52)
[2020-12-01] MEDS: 0.9 % Sodium Chloride Flush 3 ML SYRINGE IVFLUSH ×3 (03:12→14:26)
[2020-12-01 05:53] LABS: VBG HCO3 18 mmol/L (22-26); VBG pCO2 37 mmHg; VBG pO2 101 mmHg
[2020-12-01 05:55] LABS: Venous Blood Gas Refer to POC result
[2020-12-01 05:59] LABS: Basophils Percent Auto 0.2 % (0-2); Eosinophils Absolute Auto 0.4 X10*3/uL (0.0-0.4); Eosinophils Percent Auto 2.7 % (0-4); Hematocrit 25.8 % (37-47); Imm Gran Abs Auto 0.14 X10*3/uL (0.00-0.03); Imm Gran Pct Auto 1.1 % (0.0-0.4); Lymphocytes Absolute Auto 0.5 X10*3/uL (1.2-4.9); MANUAL DIFF FLAG SCAN; Mean Corpuscular Volume 77.2 fL (80-98); Mean Platelet Volume 10.5 fL (9.4-12.3); Monocytes Percent Auto 7.4 % (2-11); NRBC Pct Auto 0.2 /100WBC (0.0-0.2); Neutrophils Absolute Auto 11.3 X10*3/uL (2.0-8.3); Neutrophils Percent Auto 84.6 % (45-73); Platelet Count 144 X10*3/uL (160-400); Red Blood Count 3.34 X10*6/uL (4.20-5.50); Red Cell Distribution Width 27.5 % (11.0-16.0); SCAN SMEAR FLAG 1; White Blood Count 13.3 X10*3/uL (4.8-10.8)
[2020-12-01 06:32] LABS: SLIDE REVIEW VERIFIED
[2020-12-01 06:37] LABS: Alanine Aminotransferase 21 U/L (0-31); Albumin Level 2.6 g/dL (3.5-5.0); Alkaline Phosphatase 420 U/L (39-117); Anion Gap 18 (12-20); Aspartate Amino Transferase 35 U/L (5-31); Bilirubin Total 0.7 mg/dL (0.0-1.0); Blood Urea Nitrogen 90 mg/dL (9-16); Calcium 7.7 mg/dL (8.4-10.2); Carbon Dioxide 21 mmol/L (22-29); Chloride 102 mmol/L (96-108); Estimated Glomerular Filt Rate 11; Glucose Random 118 mg/dL (60-115); Magnesium 2.2 mg/dL (1.6-2.6); Phosphorus 5.1 mg/dL (2.7-4.5); Potassium 5.6 mmol/L (3.3-5.1); Sodium 135 mmol/L (135-145); Total Protein 4.6 g/dL (6.5-8.0)
[2020-12-01] MEDS: propofoL 1,000 MG/100 ML VIAL 6.95 MG IVCONT (08:57)
[2020-12-01] MEDS: Chlorhexidine Gluc Oral Rinse 15 ML MOUTHWASH BUCCAL ×3 (08:58→21:22)
[2020-12-01] MEDS: Albumin Human 25 % 100 ML IV ×3 (08:58→21:20)
[2020-12-01] MEDS: Famotidine/PF 20 MG/2 ML VIAL IVPUSH (08:58)
[2020-12-01] MEDS: Hydroxychloroquine Sulfate 200 MG TABLET PO ×2 (08:59→21:22)
--- NOTE | 2020-12-01 08:59 | PM.CCPN ---
Subjective Subjective Date of Service: 12/01/20 Interval History: 79-year-old lady with underlying history of rheumatoid arthritis on methotrexate, CLL, COPD, paroxysmal AFib on full dose anticoagulation, loculated left-sided pleural effusion, rheumatoid arthritis admitted on 11/17/2020 with left hip fracture after mechanical fall. Patient has had a left hip hemiarthroplasty on 11/21/2020. Her hospital course was complicated by progressive hypoxia likely secondary to chronic recurrent aspiration. On 11/26/2020 at approximately 5:00 a.m. patient was noted to be come bradycardic that further deteriorated into PEA cardiac arrest. CPR has been started, patient has been intubated during the CPR and returned spontaneous circulation has been achieved after 2 rounds of epinephrine. Patient has been transferred to intensive care unit. Post code patient is arousable with sedation vacation. Patient developed DENTON likely secondary to ATN with oliguria and anterior wall changes on initial echocardiogram. Wall motion abnormalities and EF improved on follow-up echocardiogram. No events overnight. Urine output continues to slowly improve. Physical Exam Vital Signs: Vital Signs: Last Vital Signs Temp 98.4 F 12/01/20 08:00 Pulse 93 12/01/20 08:00 Resp 28 H 12/01/20 08:00 BP 122/62 12/01/20 08:00 Pulse Ox 92 12/01/20 08:00 Body Mass Index 23.3 Const: General: no acute distress and other (Sedated on the vent) Eyes: Sclerae: sclerae normal EOM: EOMs intact bilaterally Neck: Neck: Yes no lymphadenopathy, Yes trachea midline and Yes supple Resp: Effort & Inspection: normal respiratory effort and no respiratory distress Auscultation: clear to auscultation bilaterally Cardio: Rate: regular rate Rhythm: regular rhythm Heart sounds: no gallops, no murmurs and no rubs GI: Palpation (GI): Soft to palpation and Other GI palpation findings present ( Nontender) Auscultation: normal bowel sounds Extrem: General: No clubbing, No cyanosis and Yes pedal edema (1+ bilateral) Objective Data Labs CBC & Chem 7: 12/01/20 05:40 12/01/20 05:40 Labs: Laboratory Results - last 24 hr 12/01/20 12/01/20 12/01/20 05:40 05:40 05:46 WBC 13.3 H RBC 3.34 L Hgb 8.0 L Hct 25.8 L MCV 77.2 L MCH 24.0 L MCHC 31.0 RDW 27.5 H Plt Count 144 L MPV 10.5 Immature Gran % (Auto) 1.1 H Neut % (Auto) 84.6 H Lymph % (Auto) 4.0 L [place] % (Auto) 7.4 Eos % (Auto) 2.7 Baso % (Auto) 0.2 Lymph # (Auto) 0.5 L [place] # (Auto) 1.0 Eos # (Auto) 0.4 Baso # (Auto) 0.0 Abs Immat Gran (auto) 0.14 H Absolute Neuts (auto) 11.3 H Absolute Nucleated RBC 0.020 H Nucleated RBC % (auto) 0.2 Smear Tech's Comments VERIFIED VBG pH 7.30 L VBG pCO2 37 VBG pO2 101 VBG HCO3 18 L VBG O2 Saturation 97.0 VBG Base Excess TNP Sodium 135 Potassium 5.6 H Chloride 102 Carbon Dioxide 21 L Anion Gap 18 BUN 90 H* Creatinine 3.85 H Estim Creat Clear Calc 9.0 Estimated GFR 11 Random Glucose 118 H Calcium 7.7 L Phosphorus 5.1 H Magnesium 2.2 Total Bilirubin 0.7 AST 35 H ALT 21 Alkaline Phosphatase 420 H D Total Protein 4.6 L Albumin 2.6 L Progress Note: A&P Assessment and plan (1) Rheumatoid arthritis: Status: Acute Assessment and Plan: Assessment: 79-year-old lady with underlying rheumatoid arthritis, CLL, COPD, paroxysmal AFib, chronic aspiration admitted with mechanical fall resulting in left hip fracture, now status post left hemiarthroplasty with hospital course further complicated by bradycardia/PEA cardiac arrest, now on ventilatory support. Plan: Neuro: Following commands with sedation vacation Cardiac: Bradycardia, likely secondary to hypoxemia, likely secondary to an aspiration event, resulting in cardiopulmonary arrest. Status post returned spontaneous circulation after 2 rounds of epinephrine. Intubated during the CPR. Initial 2D echocardiogram with new wall motion abnormality that resolved on follow-up echocardiogram. Cardiology service care appreciated. Pulmonary: Acute hypoxic respiratory failure, likely secondary to an aspiration event. Intubated during the CPR. Continue to titrate off ventilatory support as tolerated. Renal: Acute renal failure, likely secondary to ATN from recent cardiopulmonary arrest, now no longer oliguric, improving slowly. Continue to monitor renal indices and urine output. Endo: No acute issues. GI: No acute issues. ID: No evidence of severe sepsis or septic shock. Initially empirically covered for aspiration pneumonitis. Continue to monitor off antibiotics. Heme/Onc: Underlying CLL, unable to crush Ibrutinib to give via OG tube. Acute blood loss anemia, while on heparin drip, likely secondary to hemodilution and possible occult slow GI bleed. Heparin drip discontinued. Hemoglobin stabilized. Psych: No acute issues. Miscellaneous: Rheumatoid arthritis on Plaquenil and methotrexate. Prophylaxis: Heparin, famotidine Diet: Tube feeds Critical care time spent: 60 minutes (2) Acute kidney injury: Status: Acute (3) Aspiration pneumonitis: Status: Acute (4) Paroxysmal A-fib: Status: Acute (5) CLL (chronic lymphocytic leukemia): Status: Acute (6) Cardiopulmonary arrest: Status: Acute (7) Closed hip fracture: Status: Acute Time Spent With Patient Total time spent with greater than 50% in coordination of care (as documented) at patient's floor/unit and/or counseling patient:: 0 Critical Care Time Critical Care Time (minutes): 60
[2020-12-01] MEDS: fentaNYL citrate/NS 1,000 MCG/100 ML PLAST..BAG 7.5 MCG IVCONT (10:21)
--- NOTE | 2020-12-01 14:32 | MHC.CM.PN ---
Patient was transferred to ICU on 11/26. Patient has been intubated/vented since that time. Anticipate patient will transfer to [facility] when medically stable. Clinical updates sent via [employer]. Continue to monitor for d/c needs.
[2020-12-01] MEDS: propofoL 1,000 MG/100 ML VIAL 5.21 MG IVCONT (20:32)
[2020-12-01] MEDS: fentaNYL citrate/NS 1,000 MCG/100 ML PLAST..BAG 10 MCG IVCONT (20:33)
[2020-12-01] MEDS: Furosemide 20 MG/2 ML VIAL IVPUSH (21:30)
[2020-12-02] VITALS (32 sets, daily range): BP systolic 108–142; BP diastolic 33–63; PULSE 87–106; RESP 18–29; TEMP 36.4–37.4; O2SAT 85–99
[2020-12-02] MEDS: 0.9 % Sodium Chloride Flush 3 ML SYRINGE IVFLUSH ×4 (00:08→19:54)
[2020-12-02] MEDS: Heparin Sodium,Porcine 5,000 UNIT/ML VIAL 5000 UNIT SUBCUT ×3 (03:11→17:10)
[2020-12-02] MEDS: Albumin Human 25 % 100 ML IV (03:14)
--- NOTE | 2020-12-02 05:30 | PC.NURSE ---
SEDATED UNDER THE INFLUENCES OF PROPOFOL AND FENTANYL FOR VENTILATOR MANAGEMENT. COMPLEXION PALE. 3-4+ EDEMA EXTENDING FROM PELVIS DISTALLY INTO LOWER EXTREMITIES. COMPLEXION PALE. INTUBATED AND MAINTAINED ON MECHANICAL VENTILATION. FIO2 WAS INCREASED UPWARD TO 70% TO KEEP SAO2> 90%. HOWEVER OVER THE LAST FEW HOURS HAVE BEEN ABLE TO TITRATE DOWNWARD FIO2 TO 60%. CURRENTLY SAO2 92-94%. BREATH SOUNDS WITH DIFFUSE CRACKLES WITHIN LOWER LOBES BILAT. SUCTINED VIA ETT FOR SMALL AMOUNTS OF THICK CALABRESE SPUTUM. HEART S1S2. ECG DISPLAYS SR-ST. B/P SOFT OVER NIGHT LOW DOSE PRESSOR SUPPORT WITH LEVOPHED AT 0.05MCG/KG/MIN HAS ACHIEVED NORMOTENSION. ABDOMEN ROUND/SEMISOFT/ LARGE LIGUID GREEN/BROWN STOOL X 3. TOLERATING TUBE FEEDINGS WITH JEVITY AT GOAL 50ML/HR. U/O INITIALLY MARGINAL AT 15-20 ML/HR. SINCE LASIX 20 MG IV X1 AND ADDITION TO LEVOPHED, U/O HAS IMPROVED TO 80-100ML/HR.
[2020-12-02 05:35] LABS: VBG Base Excess -6.7 mmol/L; VBG HCO3 19 mmol/L (22-26); VBG pCO2 38 mmHg; VBG pH 7.29 (7.32-7.43); VBG pO2 54 mmHg
[2020-12-02 05:50] LABS: Basophils Percent Auto 0.1 % (0-2); MANUAL DIFF FLAG SCAN; NRBC Pct Auto 0.1 /100WBC (0.0-0.2); SCAN SMEAR FLAG 1
[2020-12-02 05:52] LABS: Venous Blood Gas Refer to POC result
[2020-12-02] MEDS: fentaNYL citrate/NS 1,000 MCG/100 ML PLAST..BAG 10 MCG IVCONT ×2 (05:52→22:49)
[2020-12-02] MEDS: propofoL 1,000 MG/100 ML VIAL 5.21 MG IVCONT (05:52)
[2020-12-02 05:53] LABS: Eosinophils Absolute Auto 0.6 X10*3/uL (0.0-0.4); Eosinophils Percent Auto 3.9 % (0-4); Hematocrit 23.2 % (37-47); Imm Gran Abs Auto 0.22 X10*3/uL (0.00-0.03); Imm Gran Pct Auto 1.5 % (0.0-0.4); Lymphocytes Absolute Auto 0.7 X10*3/uL (1.2-4.9); Lymphocytes Percent Auto 4.8 % (20-40); Mean Corpuscular HGB Conc 30.2 g/dl (31.0-35.0); Mean Corpuscular Hemoglobin 23.5 pg (27.0-33.0); Mean Corpuscular Volume 77.9 fL (80-98); Mean Platelet Volume 10.6 fL (9.4-12.3); Monocytes Absolute Auto 0.8 X10*3/uL (0.1-1.2); Monocytes Percent Auto 5.5 % (2-11); Neutrophils Percent Auto 84.2 % (45-73); Platelet Count 163 X10*3/uL (160-400); Red Blood Count 2.98 X10*6/uL (4.20-5.50); Red Cell Distribution Width 27.7 % (11.0-16.0); White Blood Count 14.3 X10*3/uL (4.8-10.8)
[2020-12-02 06:02] LABS: PLT ABN DIST 1
[2020-12-02 06:17] LABS: Albumin Level 3.8 g/dL (3.5-5.0); Anion Gap 21 (12-20); Blood Urea Nitrogen 93 mg/dL (9-16); Calcium 8.4 mg/dL (8.4-10.2); Carbon Dioxide 19 mmol/L (22-29); Chloride 101 mmol/L (96-108); Creatinine Clr Calc Pharmacy 8.8; Estimated Glomerular Filt Rate 11; Glucose Random 99 mg/dL (60-115); Magnesium 2.2 mg/dL (1.6-2.6); Potassium 5.4 mmol/L (3.3-5.1); Sodium 136 mmol/L (135-145)
[2020-12-02 06:19] LABS: SLIDE REVIEW VERIFIED
[2020-12-02] MEDS: Furosemide 40 MG/4 ML VIAL IVPUSH (09:24)
[2020-12-02] MEDS: Famotidine/PF 20 MG/2 ML VIAL IVPUSH (09:24)
[2020-12-02] MEDS: Chlorhexidine Gluc Oral Rinse 15 ML MOUTHWASH BUCCAL ×3 (09:25→19:53)
[2020-12-02] MEDS: Hydroxychloroquine Sulfate 200 MG TABLET PO ×2 (09:25→19:53)
--- NOTE | 2020-12-02 11:21 | PM.CCPN ---
Subjective Subjective Date of Service: 12/02/20 Interval History: ICU day 7 for cardiopulmonary arrest, acute hypoxic respiratory failure, DENTON 79-year-old lady with underlying history of rheumatoid arthritis on methotrexate, CLL, COPD, paroxysmal AFib on full dose anticoagulation, loculated left-sided pleural effusion, rheumatoid arthritis admitted on 11/17/2020 with left hip fracture after mechanical fall. Patient has had a left hip hemiarthroplasty on 11/21/2020. Her hospital course was complicated by progressive hypoxia likely secondary to chronic recurrent aspiration. On 11/26/2020 at approximately 5:00 a.m. patient was noted to be come bradycardic that further deteriorated into PEA cardiac arrest. CPR has been started, patient has been intubated during the CPR and returned spontaneous circulation has been achieved after 2 rounds of epinephrine. Patient has been transferred to intensive care unit. Post code patient is arousable with sedation vacation. Patient developed DENTON likely secondary to ATN with oliguria and anterior wall changes on initial echocardiogram. Wall motion abnormalities and EF improved on follow-up echocardiogram. No events overnight. Urine output continues to slowly improve. Physical Exam Vital Signs: Vital Signs: Last Vital Signs Temp 98.8 F 12/02/20 11:00 Pulse 96 12/02/20 11:00 Resp 23 H 12/02/20 11:00 BP 127/46 L 12/02/20 11:00 Pulse Ox 92 12/02/20 11:00 Body Mass Index 23.3 Const: General: no acute distress and other (Sedated on the vent, follows commands with sedation vacation, anasarca) Eyes: Sclerae: sclerae normal EOM: EOMs intact bilaterally Neck: Neck: Yes no lymphadenopathy, Yes trachea midline and Yes supple Resp: Effort & Inspection: normal respiratory effort and no respiratory distress Auscultation: clear to auscultation bilaterally Cardio: Rate: regular rate Rhythm: regular rhythm Heart sounds: no gallops, no murmurs and no rubs GI: Palpation (GI): Soft to palpation and Other GI palpation findings present ( Nontender) Auscultation: normal bowel sounds Extrem: General: No clubbing, No cyanosis and Yes pedal edema (1+ bilateral) Objective Data Labs CBC & Chem 7: 12/02/20 05:25 12/02/20 05:25 Labs: Laboratory Results - last 24 hr 11/27/20 12/02/20 12/02/20 09:12 05:25 05:25 WBC 14.3 H RBC 2.98 L Hgb 7.0 L* Hct 23.2 L MCV 77.9 L MCH 23.5 L MCHC 30.2 L RDW 27.7 H Plt Count 163 MPV 10.6 Immature Gran % (Auto) 1.5 H Neut % (Auto) 84.2 H Lymph % (Auto) 4.8 L [place] % (Auto) 5.5 Eos % (Auto) 3.9 Baso % (Auto) 0.1 Lymph # (Auto) 0.7 L [place] # (Auto) 0.8 Eos # (Auto) 0.6 H Baso # (Auto) 0.0 Abs Immat Gran (auto) 0.22 H Absolute Neuts (auto) 12.0 H Absolute Nucleated RBC 0.020 H Nucleated RBC % (auto) 0.1 Smear Tech's Comments VERIFIED VBG pH VBG pCO2 VBG pO2 VBG HCO3 VBG O2 Saturation VBG Base Excess Sodium 136 Potassium 5.4 H Chloride 101 Carbon Dioxide 19 L Anion Gap 21 H BUN 93 H* Creatinine 3.94 H Estim Creat Clear Calc 8.8 Estimated GFR 11 Random Glucose 99 Calcium 8.4 D Phosphorus 5.0 H Magnesium 2.2 Albumin 3.8 D Crossmatch See Detail 12/02/20 05:29 WBC RBC Hgb Hct MCV MCH MCHC RDW Plt Count MPV Immature Gran % (Auto) Neut % (Auto) Lymph % (Auto) [place] % (Auto) Eos % (Auto) Baso % (Auto) Lymph # (Auto) [place] # (Auto) Eos # (Auto) Baso # (Auto) Abs Immat Gran (auto) Absolute Neuts (auto) Absolute Nucleated RBC Nucleated RBC % (auto) Smear Tech's Comments VBG pH 7.29 L VBG pCO2 38 VBG pO2 54 VBG HCO3 19 L VBG O2 Saturation 81.0 VBG Base Excess -6.7 Sodium Potassium Chloride Carbon Dioxide Anion Gap BUN Creatinine Estim Creat Clear Calc Estimated GFR Random Glucose Calcium Phosphorus Magnesium Albumin Crossmatch Progress Note: A&P Assessment and plan (1) Rheumatoid arthritis: Status: Acute Assessment and Plan: Assessment: 79-year-old lady with underlying rheumatoid arthritis, CLL, COPD, paroxysmal AFib, chronic aspiration admitted with mechanical fall resulting in left hip fracture, now status post left hemiarthroplasty with hospital course further complicated by bradycardia/PEA cardiac arrest, now on ventilatory support. Plan: Neuro: Following commands with sedation vacation Cardiac: Bradycardia, likely secondary to hypoxemia, likely secondary to an aspiration event, resulting in cardiopulmonary arrest. Status post returned spontaneous circulation after 2 rounds of epinephrine. Intubated during the CPR. Initial 2D echocardiogram with new wall motion abnormality that resolved on follow-up echocardiogram. Cardiology service care appreciated. Pulmonary: Acute hypoxic respiratory failure, likely secondary to an aspiration event. Intubated during the CPR. Continue to titrate off ventilatory support as tolerated. Renal: Acute renal failure, likely secondary to ATN from recent cardiopulmonary arrest, now no longer oliguric, improving slowly. Nephrology service care appreciated. Continue to monitor renal indices and urine output. Endo: No acute issues. GI: No acute issues. ID: No evidence of severe sepsis or septic shock. Initially empirically covered for aspiration pneumonitis. Continue to monitor off antibiotics. Heme/Onc: Underlying CLL, unable to crush Ibrutinib to give via OG tube. Acute blood loss anemia, while on heparin drip, likely secondary to hemodilution and possible occult slow GI bleed. Heparin drip discontinued. Psych: No acute issues. Miscellaneous: Rheumatoid arthritis on Plaquenil and methotrexate. Prophylaxis: Heparin, famotidine Diet: Tube feeds Critical care time spent: 60 minutes (2) Acute kidney injury: Status: Acute (3) Paroxysmal A-fib: Status: Acute (4) CLL (chronic lymphocytic leukemia): Status: Acute (5) Cardiopulmonary arrest: Status: Acute (6) Closed hip fracture: Status: Acute Time Spent With Patient Total time spent with greater than 50% in coordination of care (as documented) at patient's floor/unit and/or counseling patient:: 0 Critical Care Time Critical Care Time (minutes): 60
--- NOTE | 2020-12-02 11:24 | P.CONNP_ITS ---
History of Present Illness Reason for Consult Consult date: 12/02/20 Reason for consult: DENTON Chief Complaint Chief complaint: NSTEMI History of Present Illness Narrative: 79-year-old lady with underlying history of rheumatoid arthritis on methotrexate, CLL, COPD, paroxysmal AFib on full dose anticoagulation, loculated left-sided pleural effusion, rheumatoid arthritis admitted on 11/17/2020 with left hip fracture after mechanical fall. Patient has had a left hip hemiarthroplasty on 11/21/2020. Her hospital course was complicated by progressive hypoxia likely secondary to chronic recurrent aspiration. On at approximately 5:00 a.m. patient was noted to be come bradycardic that further deteriorated into PEA cardiac arrest. She was successfully resuscitated and was transferred to intensive care unit. Patient developed DENTON . Nephrology ahs been consulted to assist in her clinical care. Review of Systems Review of Systems Yes unobtainable due to endotracheal tube PMFSH Past Medical History Medical History (Updated 12/02/20 @ 11:32 by Pal Arias MD) CLL (chronic lymphocytic leukemia) Empyema lung Paroxysmal A-fib Rheumatoid arthritis Family History Family history: reviewed and not pertinent Social History Social History Household Members: None Housing: House Alcohol intake: never Smoking Status: Never smoker Advance Directives Date on File: 12/01/20 service: No Current occupational status: retired Meds Allergies Allergy/AdvReac Type Severity Reaction Status Date / Time crab AdvReac Intermediate NAUSEA & Verified 11/16/20 21:07 VOMITING crab Allergy Intermediate vomiting Uncoded 11/16/20 21:07 Active Medications: Current Medications Generic Name Dose Route Start Last Admin Trade Name Freq PRN Reason Stop Dose Admin Acetaminophen 650 mg 11/26/20 12:46 Acetaminophen Oral Liquid 650 Mg/20.3 Ml Solution PO Q6H PRN Pain, Mild (Pain Scale 1-3) Chlorhexidine Gluconate 15 ml 11/26/20 15:00 12/02/20 09:25 Chlorhexidine Gluc Oral Rinse 15 Ml Mouthwash BUCCAL 15 ml TID SHRUTI Administration Famotidine 20 mg 11/27/20 09:00 12/02/20 09:24 Famotidine/Pf 20 Mg/2 Ml Vial IVPUSH 20 mg DAILY SHRUTI Administration Heparin Sodium (Porcine) 5,000 unit 11/30/20 10:00 12/02/20 09:25 Heparin Sodium,Porcine 5,000 Unit/Ml Vial SUBCUT 5,000 unit Q8H SHRUTI Administration Hydroxychloroquine Sulfate 200 mg 11/17/20 09:00 12/02/20 09:25 Hydroxychloroquine Sulfate 200 Mg Tablet PO 200 mg BID SHRUTI Administration Propofol 1,000 mg in 100 mls @ 0 mls/hr 11/26/20 06:00 12/02/20 07:38 Diprivan IVCONT 25 mcg/kg/min .Q0M SHRUTI 8.69 mls/hr Titration Protocol Per Protocol Fentanyl 1,000 mcg in 100 mls @ 0 mls/hr 11/29/20 08:30 12/02/20 07:38 Sublimaze/Ns IVCONT 125 mcg/hr .Q0M SHRUTI 12.5 mls/hr Titration Protocol Per Protocol Norepinephrine Bitartrate 8 mg in 250 mls @ 0 mls/hr 12/01/20 19:45 12/02/20 07:00 Levophed IVCONT 0.08 mcg/kg/min .Q0M SHRUTI 8.69 mls/hr Titration Protocol Per Protocol Methotrexate 20 mg 11/17/20 00:45 Methotrexate Sodium 2.5 Mg Tablet PO QWEEK [facility] Pat Own Med - 1 each 11/25/20 14:30 12/02/20 09:25 Ibrutinib [Imbruvica PO 1 each ] 420 Mg Tablet DAILY [facility] Administration Sodium Chloride 3 ml 11/17/20 08:00 12/02/20 07:36 0.9 % Sodium Chloride Flush 3 Ml Syringe IVFLUSH 3 ml QSHIFT [facility] Administration Home Medications Medication Instructions Recorded Confirmed Last Taken Type apixaban [Eliquis] 1 tab PO BID 11/16/20 11/16/20 Unknown History folic acid 1 tab PO DAILY 11/16/20 11/16/20 Unknown History furosemide 1 tab PO DAILY 11/16/20 11/16/20 Unknown History hydroxychloroquine 1 tab PO BID 11/16/20 11/16/20 Unknown History ibrutinib [Imbruvica] 1 tab PO DAILY 11/16/20 11/16/20 Unknown History methotrexate sodium 8 tab PO QWEEK 11/16/20 11/16/20 Unknown History metoprolol tartrate 0.5 tab PO BID 11/16/20 11/16/20 Unknown History pantoprazole 1 tab PO DAILY 11/16/20 11/16/20 Unknown History salsalate 2 tab PO BID 11/16/20 11/16/20 Unknown History Physical Exam Vital Signs: Last Vital Signs Temp 98.8 F 12/02/20 11:00 Pulse 96 12/02/20 11:00 Resp 23 H 12/02/20 11:00 BP 127/46 L 12/02/20 11:00 Pulse Ox 92 12/02/20 11:00 Body Mass Index 23.3 Const Other: Intubated Neck Neck: Yes JVD Resp Auscultation: diminished lung sounds Cardio Rate: regular rate GI Palpation (GI): Soft to palpation Neuro Other: Sedated Results Lab Results Result Diagrams: 12/02/20 05:25 12/02/20 05:25 Lab results: Chemistry 11/30/20 12/01/20 12/02/20 05:30 05:40 05:25 Sodium 135 135 136 Potassium 5.3 H 5.6 H 5.4 H Carbon Dioxide 20 L 21 L 19 L BUN 78 H 90 H* 93 H* Creatinine 3.53 H 3.85 H 3.94 H Calcium 7.6 L 7.7 L 8.4 D Phosphorus 4.4 5.1 H 5.0 H Hematology 11/30/20 12/01/20 12/02/20 05:30 05:40 05:25 WBC 15.4 H 13.3 H 14.3 H Hgb 8.3 L 8.0 L 7.0 L* Plt Count 178 144 L 163 Assessment and Plan (1) Acute kidney injury: Problem details: Normal renal function at baseline Acute Kidney Injury due to tubular injury Clinically hypervolemic. Shall give lasix 40 mg IV bid Serum creatinine not plateaued yet No indication for renal replacement Concur with rest of current management Shall closely follow along Status: Acute
[2020-12-02] MEDS: fentaNYL citrate/NS 1,000 MCG/100 ML PLAST..BAG 12.5 MCG IVCONT (14:20)
[2020-12-02] MEDS: propofoL 1,000 MG/100 ML VIAL 8.69 MG IVCONT (17:10)
--- NOTE | 2020-12-02 17:24 | PC.NURSE ---
S/E Afebrile Sedated on Propofol & Fentanyl gtts No sedation vacation Pupils 2mm, sluggish SR, no ectopy L IJ TLC patent Levophed gtt continued 4+ edema upper extremities 3+ edema lower extremities Bleeding gums - MD aware H&H 03/22.3 - ok to continue SQ heparin per MD LS coarse/crackles throughout Thin clear inline secretions 7.5 ETT @ 23 ; AC16/400/8/60% Tolerating tube feeds well 120 water flushes q8hr Bun 93, Creat 3.94, K 5.4 - nephro consulted Lasix 40mg IVP administered Urine ouput 100-150cc/hr Redness buttocks/coccyx - barrier cream applied Air loss bed in place, on prevlon pad, repo q2hr Bathed - Family updated by this RN & MD
[2020-12-03] VITALS (30 sets, daily range): BP systolic 90–151; BP diastolic 37–61; PULSE 92–103; RESP 19–28; TEMP 36.6–37.4; O2SAT 86–100
[2020-12-03] MEDS: propofoL 1,000 MG/100 ML VIAL 6.95 MG IVCONT ×2 (03:53→13:55)
[2020-12-03] MEDS: Heparin Sodium,Porcine 5,000 UNIT/ML VIAL 5000 UNIT SUBCUT ×3 (03:53→17:08)
[2020-12-03 05:18] LABS: VBG Base Excess -7.3 mmol/L; VBG HCO3 18 mmol/L (22-26); VBG pCO2 37 mmHg; VBG pH 7.29 (7.32-7.43); VBG pO2 54 mmHg
[2020-12-03 05:25] LABS: Basophils Percent Auto 0.2 % (0-2); Hemoglobin 7.6 g/dl (12.0-16.0); MANUAL DIFF FLAG SCAN; NRBC Pct Auto 0.1 /100WBC (0.0-0.2); SCAN SMEAR FLAG 1
[2020-12-03 05:27] LABS: Eosinophils Absolute Auto 0.9 X10*3/uL (0.0-0.4); Hematocrit 24.9 % (37-47); Imm Gran Abs Auto 0.28 X10*3/uL (0.00-0.03); Imm Gran Pct Auto 1.6 % (0.0-0.4); Lymphocytes Absolute Auto 0.9 X10*3/uL (1.2-4.9); Lymphocytes Percent Auto 5.4 % (20-40); Mean Corpuscular HGB Conc 30.5 g/dl (31.0-35.0); Mean Corpuscular Hemoglobin 23.8 pg (27.0-33.0); Mean Corpuscular Volume 78.1 fL (80-98); Mean Platelet Volume 10.9 fL (9.4-12.3); Monocytes Absolute Auto 1.1 X10*3/uL (0.1-1.2); Monocytes Percent Auto 6.1 % (2-11); Neutrophils Absolute Auto 14.2 X10*3/uL (2.0-8.3); Neutrophils Percent Auto 81.7 % (45-73); Platelet Count 196 X10*3/uL (160-400); Red Blood Count 3.19 X10*6/uL (4.20-5.50); Red Cell Distribution Width 28.3 % (11.0-16.0); Venous Blood Gas Refer to POC result; White Blood Count 17.4 X10*3/uL (4.8-10.8)
[2020-12-03 05:33] LABS: PLT ABN DIST 1
[2020-12-03 05:49] LABS: Albumin Level 3.2 g/dL (3.5-5.0); Anion Gap 19 (12-20); Blood Urea Nitrogen 96 mg/dL (9-16); Calcium 8.3 mg/dL (8.4-10.2); Carbon Dioxide 20 mmol/L (22-29); Chloride 101 mmol/L (96-108); Creatinine Clr Calc Pharmacy 8.7; Estimated Glomerular Filt Rate 11; Glucose Random 111 mg/dL (60-115); Magnesium 2.3 mg/dL (1.6-2.6); Phosphorus 5.3 mg/dL (2.7-4.5); Potassium 5.3 mmol/L (3.3-5.1); Sodium 135 mmol/L (135-145)
[2020-12-03 06:10] LABS: SLIDE REVIEW VERIFIED
[2020-12-03] MEDS: 0.9 % Sodium Chloride Flush 3 ML SYRINGE IVFLUSH ×2 (09:34→15:02)
[2020-12-03] MEDS: Hydroxychloroquine Sulfate 200 MG TABLET PO ×2 (11:19→21:58)
[2020-12-03] MEDS: Chlorhexidine Gluc Oral Rinse 15 ML MOUTHWASH BUCCAL ×3 (11:19→22:00)
[2020-12-03] MEDS: Famotidine/PF 20 MG/2 ML VIAL IVPUSH (11:24)
[2020-12-03] MEDS: Furosemide 500 MG in Container,Empty 0 ML IVCONT (12:01)
[2020-12-03] MEDS: fentaNYL citrate/NS 1,000 MCG/100 ML PLAST..BAG 5 MCG IVCONT (12:02)
--- NOTE | 2020-12-03 15:04 | PC.NURSE ---
Pt remains on fentanyl and propofol for sedation, easily arousable, grimasing with mouth care, not following commands, no tracking noted, reaaching for et tube at times, restraints remain for patient safety levophed titrated off this am, bp trenidng 100-110 systollically urine output trending 10-20ml/hr MD aware, CVP 13, md aware and lasix drip started at 10mg/hr tolerating tube feeds, residuals 5-10 continues on ac settings,suctioning large amount of cream in line secretions
--- NOTE | 2020-12-03 17:00 | PC.NURSE ---
DR. CHRISTINA NOTIFIED OF LARGE STAIN NOTED ON LEFT HIP DRESSING. ?CHANGE TOMORROW. WILL CONTINUE TO MONITOR.
--- NOTE | 2020-12-03 17:15 | PM.PNNEP ---
Subjective Subjective Date of Service: 12/04/20 Interval history: Events noted Physical Exam Vital Signs: Vital Signs: Last Vital Signs Temp 98.1 F 12/03/20 17:00 Pulse 99 12/03/20 17:00 Resp 26 H 12/03/20 17:00 BP 112/49 L 12/03/20 17:00 Pulse Ox 88 L 12/03/20 17:00 Body Mass Index 23.3 Const: Other: intubated Ill appearing Neck: Neck: Yes supple Resp: Auscultation: rhonchi Cardio: Heart sounds: S2 normal heart sound present, no gallops and no rubs Neuro: Motor exam (neuro): no asterixis Objective Data Labs CBC & Chem 7: 12/04/20 05:24 12/04/20 05:24 Labs: Laboratory Results - last 24 hr 12/03/20 12/03/20 12/03/20 05:08 05:08 05:11 WBC 17.4 H RBC 3.19 L Hgb 7.6 L Hct 24.9 L MCV 78.1 L MCH 23.8 L MCHC 30.5 L RDW 28.3 H Plt Count 196 MPV 10.9 Immature Gran % (Auto) 1.6 H Neut % (Auto) 81.7 H Lymph % (Auto) 5.4 L [place] % (Auto) 6.1 Eos % (Auto) 5.0 H Baso % (Auto) 0.2 Lymph # (Auto) 0.9 L [place] # (Auto) 1.1 Eos # (Auto) 0.9 H Baso # (Auto) 0.0 Abs Immat Gran (auto) 0.28 H Absolute Neuts (auto) 14.2 H Absolute Nucleated RBC 0.020 H Nucleated RBC % (auto) 0.1 Smear Tech's Comments VERIFIED VBG pH 7.29 L VBG pCO2 37 VBG pO2 54 VBG HCO3 18 L VBG O2 Saturation 81.0 VBG Base Excess -7.3 Sodium 135 Potassium 5.3 H Chloride 101 Carbon Dioxide 20 L Anion Gap 19 BUN 96 H* Creatinine 3.94 H Estim Creat Clear Calc 8.7 Estimated GFR 11 Random Glucose 111 Calcium 8.3 L Phosphorus 5.3 H Magnesium 2.3 Albumin 3.2 L Assessment & Plan Assessment and plan (1) Acute kidney injury: Problem details: Acute Kidney Injury due to tubular injury / Ischemic ATN Clinically hypervolemic. Keep O > I with lasix 40 mg IV bid Serum creatinine not plateaued yet; No overt s/s of uremia No indication for renal replacement today Shall closely follow along Status: Acute Time Spent With Patient Time: Total time spent is greater than 50% in coordination of care (as documented) at patient's floor/unit and/or counseling patient:
--- NOTE | 2020-12-03 17:35 | P.PNCC_ITS ---
Subjective Subjective Date of Service: 12/03/20 Interval History: 80-year-old female who status post OR IF and suffered a cardiac arrest and was emergently intubated and apparently this was very brief having responded to IV epinephrine for bradycardia and had a central line placed and a CT angiogram of her chest showing no evidence of pulmonary emboli no evidence of right heart burden but clearly multiple wall motion abnormalities and a 30% left ventricular ejection fraction which has since repaired currently ejection fraction is 55% without segmental wall motion abnormality but she developed acute tubular necrosis and progressive oliguria clearly uremic but her number seem to have plateaued and the big issue is a CVP of about 11-13 and evidence of some degree of of fluid overload on chest x-ray verses ARDS and so we are attempting a Lasix drip to see if she responds if not I would have to discuss dialysis catheter placement with the family She is a barely on the edge of oliguria putting out 20-25 cc/hour so ill at least watch for several hours overnight on a modest IV Lasix drip to treat the most important issue which is the volume with a CVP currently at 11-13 Physical Exam Vital Signs: Vital Signs: Last Vital Signs Temp 98.1 F 12/03/20 17:00 Pulse 99 12/03/20 17:00 Resp 26 H 12/03/20 17:00 BP 112/49 L 12/03/20 17:00 Pulse Ox 88 L 12/03/20 17:00 Body Mass Index 23.3 Const: Other: Sedated and intubated but she does respond to manipulation but remains on an FiO2 between 90 and 100% with a CVP of 11-13 and a chest x-ray showing the equivalent of an ARDS picture Moves all 4 extremities and has equal reactive pupils no abnormal reflexes Chest with bilateral coarse ventilatory sounds Feedings in not being tolerated apparently the regurgitating her feeding so they will be held but the abdomen is soft no organomegaly Cardiac exam by bedside echo shows preserved systolic wall motion of the left ventricle without segmental abnormality Marked peripheral edema Objective Data Labs CBC & Chem 7: 12/04/20 05:24 12/04/20 05:24 Labs: Laboratory Results - last 24 hr 12/03/20 12/03/20 12/03/20 05:08 05:08 05:11 WBC 17.4 H RBC 3.19 L Hgb 7.6 L Hct 24.9 L MCV 78.1 L MCH 23.8 L MCHC 30.5 L RDW 28.3 H Plt Count 196 MPV 10.9 Immature Gran % (Auto) 1.6 H Neut % (Auto) 81.7 H Lymph % (Auto) 5.4 L [place] % (Auto) 6.1 Eos % (Auto) 5.0 H Baso % (Auto) 0.2 Lymph # (Auto) 0.9 L [place] # (Auto) 1.1 Eos # (Auto) 0.9 H Baso # (Auto) 0.0 Abs Immat Gran (auto) 0.28 H Absolute Neuts (auto) 14.2 H Absolute Nucleated RBC 0.020 H Nucleated RBC % (auto) 0.1 Smear Tech's Comments VERIFIED VBG pH 7.29 L VBG pCO2 37 VBG pO2 54 VBG HCO3 18 L VBG O2 Saturation 81.0 VBG Base Excess -7.3 Sodium 135 Potassium 5.3 H Chloride 101 Carbon Dioxide 20 L Anion Gap 19 BUN 96 H* Creatinine 3.94 H Estim Creat Clear Calc 8.7 Estimated GFR 11 Random Glucose 111 Calcium 8.3 L Phosphorus 5.3 H Magnesium 2.3 Albumin 3.2 L Progress Note: A&P Assessment and plan (1) Cardiomyopathy: Status: Acute (2) NSTEMI (non-ST elevated myocardial infarction): Status: Acute (3) Acute blood loss anemia: Status: Acute (4) Rheumatoid arthritis: Status: Acute (5) Acute kidney injury: Problem details: Acute Kidney Injury due to tubular injury / Ischemic ATN Clinically hypervolemic. Keep O > I with lasix 40 mg IV bid Serum creatinine not plateaued yet; No overt s/s of uremia No indication for renal replacement today Shall closely follow along Status: Acute (6) Regional wall motion abnormality of heart: Status: Acute (7) Aspiration pneumonitis: Status: Acute (8) Paroxysmal A-fib: Status: Acute (9) CLL (chronic lymphocytic leukemia): Status: Acute (10) Cardiopulmonary arrest: Status: Acute (11) Pneumonia: Problem details: She has aspiration pneumonia She is now on day 7 antibiotics and has no specific organism She has been on Ceftriaxone and Doxycycline and day 2 Unasyn Status: Acute (12) Odynophagia: Status: Acute (13) Loculated pleural effusion: Status: Acute (14) Closed hip fracture: Status: Acute (15) Acute respiratory failure with hypoxia: Status: Acute (16) ATN (acute tubular necrosis): Status: Acute Assessment and Plan: For tonight will observe on a Lasix drip and failing an increase in hourly urine output and with the CVP remaining elevated and most especially if the uremia worsens then we will approach family for permission for dialysis catheter and dialysis treatment Time Spent With Patient Time: Total time spent is greater than 50% in coordination of care (as documented) at patient's floor/unit and/or counseling patient: Total time spent with greater than 50% in coordination of care (as documented) at patient's floor/unit and/or counseling patient:: 60
--- NOTE | 2020-12-03 18:38 | PC.NURSE ---
Addendum entered by Liss Brown RN 12/03/20 19:43: ?TUBE FEEDS POURING FROM MOUTH. ORALLY SUCTIONED OUT. TUBE FEEDS ON HOLD AT 1940. ASPEN NOTIFIED. Addendum entered by Liss Brown RN 12/03/20 19:12: RT CHANGED VENT SETTINGS TO PC 16/8 ON 100%. 02 NOW 97%. Original Note: COPIOUS BLOODY ORAL SECRETIONS, ?BIT TONGUE, LIPS BLEEDING, ?SORE TO LEFT UPPER LIP VS DRIED BLOOD - PICTURE OBTAINED IN CHART. ORAL CARE, CHLORAHEXIDINE AND MOUTH MOISTURIZER APPLIED. NOTIFIED. 02 INCREASED TO 100% ON VENT DUE TO 02 MAINTAINING LOW 80S. RT NOTIFIED.
[2020-12-04] VITALS (24 sets, daily range): BP systolic 81–139; BP diastolic 37–68; PULSE 93–104; RESP 15–25; TEMP 37–37.3; O2SAT 92–98
[2020-12-04] MEDS: 0.9 % Sodium Chloride Flush 3 ML SYRINGE IVFLUSH ×2 (00:10→10:07)
[2020-12-04] MEDS: propofoL 1,000 MG/100 ML VIAL 5.21 MG IVCONT (05:25)
[2020-12-04 05:32] LABS: VBG Base Excess -7.8 mmol/L; VBG HCO3 18 mmol/L (22-26); VBG pCO2 39 mmHg; VBG pH 7.27 (7.32-7.43); VBG pO2 72 mmHg
[2020-12-04 05:53] LABS: Venous Blood Gas Refer to POC result
[2020-12-04 06:02] LABS: Basophils Percent Auto 0.2 % (0-2); Eosinophils Absolute Auto 0.5 X10*3/uL (0.0-0.4); Imm Gran Abs Auto 0.25 X10*3/uL (0.00-0.03); Imm Gran Pct Auto 1.5 % (0.0-0.4); MANUAL DIFF FLAG SCAN; SCAN SMEAR FLAG 1
[2020-12-04 06:04] LABS: Eosinophils Percent Auto 3.1 % (0-4); Hematocrit 25.3 % (37-47); Hemoglobin 7.7 g/dl (12.0-16.0); Lymphocytes Absolute Auto 1.3 X10*3/uL (1.2-4.9); Lymphocytes Percent Auto 7.3 % (20-40); Mean Corpuscular HGB Conc 30.4 g/dl (31.0-35.0); Mean Corpuscular Hemoglobin 23.7 pg (27.0-33.0); Mean Corpuscular Volume 77.8 fL (80-98); Mean Platelet Volume 11.1 fL (9.4-12.3); Monocytes Absolute Auto 0.9 X10*3/uL (0.1-1.2); Monocytes Percent Auto 5.1 % (2-11); NRBC Pct Auto 0.2 /100WBC (0.0-0.2); Neutrophils Absolute Auto 14.1 X10*3/uL (2.0-8.3); Neutrophils Percent Auto 82.8 % (45-73); Platelet Count 238 X10*3/uL (160-400); Red Blood Count 3.25 X10*6/uL (4.20-5.50)
[2020-12-04 06:12] LABS: PLT ABN DIST 1
[2020-12-04 06:28] LABS: Alanine Aminotransferase 16 U/L (0-31); Albumin Level 2.9 g/dL (3.5-5.0); Alkaline Phosphatase 457 U/L (39-117); Anion Gap 22 (12-20); Aspartate Amino Transferase 22 U/L (5-31); Bilirubin Direct 1.4 mg/dL (0.0-0.5); Bilirubin Total 1.6 mg/dL (0.0-1.0); Calcium 8.6 mg/dL (8.4-10.2); Carbon Dioxide 19 mmol/L (22-29); Chloride 100 mmol/L (96-108); Glucose Random 86 mg/dL (60-115); Magnesium 2.3 mg/dL (1.6-2.6); Phosphorus 6.3 mg/dL (2.7-4.5); Potassium 5.6 mmol/L (3.3-5.1); Sodium 135 mmol/L (135-145); Total Protein 4.9 g/dL (6.5-8.0)
[2020-12-04 06:30] LABS: Blood Urea Nitrogen 106 mg/dL (9-16)
[2020-12-04 06:36] LABS: Creatinine Clr Calc Pharmacy 8.1; Estimated Glomerular Filt Rate 10
[2020-12-04 08:09] LABS: SLIDE REVIEW VERIFIED
[2020-12-04 09:14] LABS: Lactic Acid 0.9 mmol/L (0.5-2.0)
[2020-12-04 09:57] LABS: Procalcitonin 1.38 ng/mL
[2020-12-04] MEDS: Chlorhexidine Gluc Oral Rinse 15 ML MOUTHWASH BUCCAL (10:07)
[2020-12-04] MEDS: Famotidine/PF 20 MG/2 ML VIAL IVPUSH (10:07)
[2020-12-04] MEDS: Heparin Sodium,Porcine 5,000 UNIT/ML VIAL 5000 UNIT SUBCUT (10:08)
[2020-12-04] MEDS: Hydroxychloroquine Sulfate 200 MG TABLET PO (10:08)
--- NOTE | 2020-12-04 10:17 | MHC.CLN ---
F/U PT'S TF CURRENTLY ON HOLD TF POURING FROM MOUTH PER NSG PT MAY NEED DIALYSIS PER MD IF TF TO RE-START; RECOMMEND JEVITY 1.0 AT MAX GOAL RATE 50CC/HR WITH 120CC FREE WATER Q 8 HRS PROVIDES 1272KCALS (1409KCALS WITH SEDATION; 24KCALS/KG), 53G PROTEIN (.9G/KG), 1362CC TOTAL WATER FROM FORMULA AND FLUSHES (23CC/KG) START AT 20CC/HR AND INCREASE BY 10CC Q 4 HRS UNTIL MAX GOAL RATE IS REACHED MONITOR FOR TOLERANCE, RESIDUALS AND LYTES FOLLOWING
[2020-12-04 13:48] LABS: VBG Base Excess -7.6 mmol/L; VBG HCO3 18 mmol/L (22-26); VBG pCO2 37 mmHg; VBG pH 7.28 (7.32-7.43); VBG pO2 50 mmHg
[2020-12-04 14:27] LABS: Venous Blood Gas Refer to POC result
[2020-12-04 14:27] LABS: VBG HCO3 17 mmol/L (22-26); VBG pCO2 36 mmHg; VBG pH 7.29 (7.32-7.43); VBG pO2 126 mmHg
--- NOTE | 2020-12-04 14:45 | P.PCNCC_ITS ---
Procedures Procedure Note Procedure Note: In 2 extensive discussions with the son who was healthcare proxy I discussed the need for dialysis because of worsening renal function clear-cut evidence of uremia and volume overload with 3rd space fluid and elevated CVP After signing consent and under ultrasound guidance and after sterile preparation and draping I gained entry to the right internal jugular vein without complication passing retrograde with Seldinger technique AJ tipped guidewire over which a Angiocath for before blood gas sampling proving that the with with the arterial oxygen saturation being 95% we prove that this was venous by virtue of the 75% oxygen saturation and then proceeded with progressive dilators and ultimately placement of the 12 [place] 13 centimetre triple-lumen dialysis catheter without complication sterilely dressed and sewn in and secured
--- NOTE | 2020-12-04 14:51 | PM.CCPN ---
Subjective Subjective Date of Service: 12/04/20 Interval History: 80-year-old female 1 week status post cardio respiratory arrest emergently intubated with brief CPR gnosticism of [place] relatively quickly and pulmonary embolism was ruled out there were clear-cut wall motion abnormalities of the left ventricle so this appeared to be primarily a cardiac event and and the patient remained sedated and intubated since but also progressively developed ATN and as she became oliguric and fluid overloaded and uremic and we sort permission from the son and received did place a dialysis catheter in the right internal jugular vein and then he subsequently went to her credit and loan collections supervisor's office and found her own healthcare proxy which indicated that she wanted no artificial maintenance and he basically chose to make her DNR and pref preferably comfort measures only to the point of extubation as well so an honor his wishes were going to proceed in that direction today even though dialysis catheter had already been placed he said she did even want the intubation in the 1st place which was unknown to him Physical Exam Vital Signs: Vital Signs: Last Vital Signs Temp 99.1 F 12/04/20 12:00 Pulse 101 H 12/04/20 14:00 Resp 25 H 12/04/20 14:00 BP 127/51 L 12/04/20 14:00 Pulse Ox 95 12/04/20 14:00 Body Mass Index 23.3 Const: Other: Off sedation she started to awaken and open her eyes and definitely more aware but still no display of cognitive function moving all 4 extremities Lungs FiO2 weaned down to 70% despite fluid overload and following the Lasix drip her CVP did come down to 7-8 so it is not impossible intrathoracic veno compartment had diminished volume Bedside LV function restored according to my bedside echo Abdomen quiet with reduced bowel sounds but soft and not tolerating feedings Objective Data Labs CBC & Chem 7: 12/04/20 05:24 12/04/20 05:24 Labs: Laboratory Results - last 24 hr 12/04/20 12/04/20 12/04/20 05:24 05:24 05:26 WBC 17.0 H RBC 3.25 L Hgb 7.7 L Hct 25.3 L MCV 77.8 L MCH 23.7 L MCHC 30.4 L RDW 28.0 H Plt Count 238 MPV 11.1 Immature Gran % (Auto) 1.5 H Neut % (Auto) 82.8 H Lymph % (Auto) 7.3 L Donley % (Auto) 5.1 Eos % (Auto) 3.1 Baso % (Auto) 0.2 Lymph # (Auto) 1.3 Donley # (Auto) 0.9 Eos # (Auto) 0.5 H Baso # (Auto) 0.0 Abs Immat Gran (auto) 0.25 H Absolute Neuts (auto) 14.1 H Absolute Nucleated RBC 0.030 H Nucleated RBC % (auto) 0.2 Smear Tech's Comments VERIFIED VBG pH 7.27 L VBG pCO2 39 VBG pO2 72 VBG HCO3 18 L VBG O2 Saturation 91.0 VBG Base Excess -7.8 Sodium 135 Potassium 5.6 H Chloride 100 Carbon Dioxide 19 L Anion Gap 22 H BUN 106 H* Creatinine 4.24 H* Estim Creat Clear Calc 8.1 Estimated GFR 10 Random Glucose 86 Lactic Acid Calcium 8.6 Phosphorus 6.3 H Magnesium 2.3 Total Bilirubin 1.6 H Direct Bilirubin 1.4 H AST 22 ALT 16 Alkaline Phosphatase 457 H Total Protein 4.9 L Albumin 2.9 L Procalcitonin 12/04/20 12/04/20 12/04/20 08:24 08:24 13:41 WBC RBC Hgb Hct MCV MCH MCHC RDW Plt Count MPV Immature Gran % (Auto) Neut % (Auto) Lymph % (Auto) Donley % (Auto) Eos % (Auto) Baso % (Auto) Lymph # (Auto) Donley # (Auto) Eos # (Auto) Baso # (Auto) Abs Immat Gran (auto) Absolute Neuts (auto) Absolute Nucleated RBC Nucleated RBC % (auto) Smear Tech's Comments VBG pH 7.28 L VBG pCO2 37 VBG pO2 50 VBG HCO3 18 L VBG O2 Saturation 75.0 VBG Base Excess -7.6 Sodium Potassium Chloride Carbon Dioxide Anion Gap BUN Creatinine Estim Creat Clear Calc Estimated GFR Random Glucose Lactic Acid 0.9 Calcium Phosphorus Magnesium Total Bilirubin Direct Bilirubin AST ALT Alkaline Phosphatase Total Protein Albumin Procalcitonin 1.38 12/04/20 14:20 WBC RBC Hgb Hct MCV MCH MCHC RDW Plt Count MPV Immature Gran % (Auto) Neut % (Auto) Lymph % (Auto) Donley % (Auto) Eos % (Auto) Baso % (Auto) Lymph # (Auto) Donley # (Auto) Eos # (Auto) Baso # (Auto) Abs Immat Gran (auto) Absolute Neuts (auto) Absolute Nucleated RBC Nucleated RBC % (auto) Smear Tech's Comments VBG pH 7.29 L VBG pCO2 36 VBG pO2 126 VBG HCO3 17 L VBG O2 Saturation 99.0 VBG Base Excess -8.0 Sodium Potassium Chloride Carbon Dioxide Anion Gap BUN Creatinine Estim Creat Clear Calc Estimated GFR Random Glucose Lactic Acid Calcium Phosphorus Magnesium Total Bilirubin Direct Bilirubin AST ALT Alkaline Phosphatase Total Protein Albumin Procalcitonin Progress Note: A&P Assessment and plan (1) ATN (acute tubular necrosis): Status: Acute (2) Cardiomyopathy: Status: Acute (3) NSTEMI (non-ST elevated myocardial infarction): Status: Acute (4) Acute blood loss anemia: Status: Acute (5) Rheumatoid arthritis: Status: Acute (6) Acute kidney injury: Problem details: Acute Kidney Injury due to tubular injury / Ischemic ATN Clinically hypervolemic. Keep O > I with lasix 40 mg IV bid Serum creatinine not plateaued yet; No overt s/s of uremia No indication for renal replacement today Shall closely follow along Status: Acute (7) Regional wall motion abnormality of heart: Status: Acute (8) Aspiration pneumonitis: Status: Acute (9) Paroxysmal A-fib: Status: Acute (10) CLL (chronic lymphocytic leukemia): Status: Acute (11) Cardiopulmonary arrest: Status: Acute (12) Pneumonia: Problem details: She has aspiration pneumonia She is now on day 7 antibiotics and has no specific organism She has been on Ceftriaxone and Doxycycline and day 2 Unasyn Status: Acute (13) Odynophagia: Status: Acute (14) Acute respiratory failure with hypoxia: Status: Acute (15) Closed hip fracture: Status: Acute Assessment and Plan: 80-year-old female status post ORIF several days following which was an acute cardiopulmonary arrest with evidence of LV dysfunction in and maintained on ventilator for the last 8 days none and the the presumed dialysis for today was then called off after the the son discovered her own words in a in add healthcare proxy and he asked for comfort measures so despite the placement of the dialysis catheter he prefers extubation comfort measures with morphine drip Time Spent With Patient Time: Total time spent is greater than 50% in coordination of care (as documented) at patient's floor/unit and/or counseling patient: Total time spent with greater than 50% in coordination of care (as documented) at patient's floor/unit and/or counseling patient:: 60
--- NOTE | 2020-12-04 14:59 | PC.NURSE ---
Sedation turned off this am, pt moving extremities non purposefully, will grimace with mouth care, not following commands blood cultures drawn this shift, urine sent, sputum culture obtained and sent/ abd ultra sound done this shift son (Elmer)in this am, after discussion with MD, consent obtained for dialysis cath, propofol drip restarted for patient comfort and levophed drip restarted to maintain maps greater than 65/ after dialysis cath placed, son calls back and after speaking with MD, spn decided to make pt [employer] urine output trending 20-30ml/hr tlc to left ij, all ports flush with ease
[2020-12-04] MEDS: Morphine Sulfate 4 MG/ML CARTRIDGE IVPUSH (15:50)
--- NOTE | 2020-12-04 16:25 | PC.NURSE ---
EXTUBATION ORDERS PLACED. 1 X MORPHINE 4MG IVP GIVEN AT 1550. EXTUBATED TO ROOM AIR AT 1552. PT VOMITED STOMACH CONTENT, CLEANED AND REPOSITIONED. SON CALLUM BEDSIDE. ASYSTOLE/TOD 1606. [facility] CALLED AND CASE DENIED BY [facility]DA #[id number]. HOME: [facility] IN [place].
--- NOTE | 2021-08-15 16:49 | P.DS_ITS ---
DS: Providers Provider Date of Service: 08/15/21 Primary care physician: Florencio Aguilar MD DS: Summary Hospital Course Hospital Course: This is an administrative note that directs the reader to the 12/04/20 final pro brannon note by Dr. Adame for the discharge summary. Time Spent with Patient Time attestation: Total time spent providing and/or coordinating discharge services: Discharge coordination time: Less than 30 minutes Quality: Stroke Does the patient have a stroke diagnosis?: No Physical Exam Vital Signs: Vital Signs: Last Vital Signs Temp 98.2 F 11/13/20 10:00 Pulse 102 H 11/13/20 10:00 Resp 18 11/13/20 10:00 BP 150/66 H 11/13/20 09:03 Pulse Ox 98 11/13/20 10:00 BMI result Body Mass Index 23.3 DS: Data Data Completed and Pending Completed studies during hospitalization [Text1]: Procedures Insertion of Endotracheal Airway into Trachea, Via Natural or Artificial Opening (11/17/20) Insertion of Infusion Device into Superior Vena Cava, Percutaneous Approach (11/17/20) Performance of Cardiac Output, Single, Manual (11/17/20) Replacement of Left Hip Joint, Femoral Surface with Synthetic Substitute, Uncemented, Open Approach (11/17/20) Respiratory Ventilation, Greater than 96 Consecutive Hours (11/17/20) Transfusion of Nonautologous Red Blood Cells into Peripheral Vein, Percutaneous Approach (11/17/20) Ultrasonography of Superior Vena Cava, Guidance (11/17/20) Discharge Plan Discharge Clinical Impression: Urinary tract infection Patient Disposition: Home, Self-Care Instructions: Urinary Tract Infection in Older Adults (ED) Prescriptions: New cephalexin 500 mg capsule 500 mg PO QID Qty: 20 RF: 0 No Action salsalate 500 mg tablet 2 tab PO BID RF: 0 methotrexate sodium 2.5 mg tablet 8 tab PO QWEEK RF: 0 pantoprazole 40 mg tablet,delayed release (DR/EC) 1 tab PO DAILY RF: 0 metoprolol tartrate 50 mg tablet 0.5 tab PO BID RF: 0 folic acid 1 mg tablet 1 tab PO DAILY RF: 0 furosemide 20 mg tablet 1 tab PO DAILY RF: 0 hydroxychloroquine 200 mg tablet 1 tab PO BID RF: 0 Eliquis 5 mg tablet 1 tab PO BID RF: 0 Imbruvica 420 mg tablet 1 tab PO DAILY RF: 0 Referrals: Croke,Florencio, MD [Primary Care Provider] - 2 days Interventions: ED Discharge Assessment Last Done: 11/13/20 12:56 Discharge Date/Time: 11/13/20 12:56
== END 2020-12-04 16:06 | disposition expired | DRG 521 ==
LOC: HO.ED 11-17 00:26 → HO.S3 11-17 01:42 → HO.ICU 11-26 05:58
PROVIDERS: Anesthesiology; Hospitalist; Internal Medicine; Internal Medicine Cardiovascular Disease; Orthopaedic Surgery; Physician Assistant; Registered Nurse Community Health; Admitting Provider Hospitalist; Emergency Provider Internal Medicine; PCP Internal Medicine; Visit Provider Internal Medicine Pulmonary Disease
PROC: (CPT 27125; principal; 2020-11-21 12:40)
DX: S72.032A Displaced midcervical fracture of left femur, initial encounter for closed fracture (principal); J96.01 Acute respiratory failure with hypoxia; J18.9 Pneumonia, unspecified organism; J69.0 Pneumonitis due to inhalation of food and vomit; I21.3 ST elevation (STEMI) myocardial infarction of unspecified site; N17.0 Acute kidney failure with tubular necrosis; C91.10 Chronic lymphocytic leukemia of B-cell type not having achieved remission; N39.0 Urinary tract infection, site not specified; D62 Acute posthemorrhagic anemia; J91.8 Pleural effusion in other conditions classified elsewhere; E87.0 Hyperosmolality and hypernatremia; I42.9 Cardiomyopathy, unspecified; W18.30XA Fall on same level, unspecified, initial encounter; Y93.9 Activity, unspecified; Y92.009 Unspecified place in unspecified non-institutional (private) residence as the place of occurrence of the external cause; I48.0 Paroxysmal atrial fibrillation; B96.20 Unspecified Escherichia coli [E. coli] as the cause of diseases classified elsewhere; I46.9 Cardiac arrest, cause unspecified; M06.9 Rheumatoid arthritis, unspecified; R13.10 Dysphagia, unspecified; Y99.9 Unspecified external cause status; R29.6 Repeated falls; Z91.81 History of falling; Z20.822 Contact with and (suspected) exposure to COVID-19; Z79.01 Long term (current) use of anticoagulants; Z79.899 Other long term (current) drug therapy; Z66 Do not resuscitate
CPT/HCPCS: 36415; 70450; 71045; 71250; 71275; 73501; 73502; 76705; 80048; 80053; 80076; 81001; 82040; 82728; 82947; 83540; 83605; 83735; 83880; 84100; 84145; 84484; 85025; 85060; 85610; 85730; 86850; 86900; 86923; 87040; 87070; 87086; 87205; 87449; 87635; 88305; 88311; 92610; 93005; 93306; 93308; 94002; 94003; 94640; 96374; 96375; 97162; 97166; 97530; 99285; C1758; C1776; J0295; J0690; J0696; J1170; J1650; J1940; J2270; J2370; J2405; J2543; J3010; P9016; P9047; Q9967